=== PATIENT | male | born 1975 | race Caucasian/White ===

== ENCOUNTER 2017-01-24 15:44 | Inpatient (IN) | payer MEDICAID ==
[~2017-01-24] VITALS: Ht 177.8 cm; Wt 157.1 kg
[~2017-01-24 15:44] MED LIST: SODIUM CHLORIDE 0.9% 10ML VIAL ONE
[2017-01-24] MEDS ORDERED: SODIUM CHLORIDE 0.9% 1,000 ML IV ONE (17:03)
[2017-01-24 17:09] LABS: BASOPHILS % 0.4 % (0.0-2.0); EOSINOPHILS % 5.4 % (0.0-5.0); HEMOGLOBIN. 13.7 g/dL (14.0-18.0); MEAN CORPUSCULAR HEMOGLOBIN 27.4 pg (28.0-32.0); MEAN CORPUSCULAR VOLUME 84.4 fL (80.0-94.0); MEAN PLATELET VOLUME 9.4 fl (7.4-10.4); MONOCYTES % 8.2 % (2.0-8.0); PLATELET 175 x1000/uL (130-400); RED BLOOD CELL COUNT 4.98 mill/uL (4.7-6.1); RED CELL DISTRIBUTION WIDTH 14.8 % (11.6-14.6)
[2017-01-24 17:15] LABS: CHLORIDE 105 mEq/L (98-107)
[2017-01-24] MEDS ORDERED: DILTIAZEM HCL 5MG/ML 5ML VIAL IV NR (17:15)
[2017-01-24 17:19] LABS: D-DIMER 0.47 mg/L FEU (<0.50); INR 1.1; PROTHROMBIN TIME 11.7 sec (9.4-11.6)
[2017-01-24 17:20] LABS: CARBON DIOXIDE 30 mEq/L (21-32)
[2017-01-24 17:25] LABS: TROPONIN I 0.15 ng/mL (0.00-0.04)
[2017-01-24] MEDS ORDERED: NITROGLYCERIN OINT 1GM/INCH UDPKT TD ONE (17:45)
[2017-01-24] MEDS ORDERED: FUROSEMIDE 40MG/4ML VIAL IVP ONE (17:45)
[2017-01-24] MEDS ORDERED: ASPIRIN 325MG TABLET PO ONE (18:30)
[2017-01-24 19:27] LABS: *AMPHETAMINES SCREEN URINE NEGATIVE (NEGATIVE); *BARBITURATES SCREEN URINE NEGATIVE (NEGATIVE); *BENZODIAZEPINES SCREEN URINE NEGATIVE (NEGATIVE); *COCAINE SCREEN URINE NEGATIVE (NEGATIVE); CANNABINOID URINE SCREEN NEGATIVE (NEGATIVE); METHADONE URINE SCREEN NEGATIVE (NEGATIVE); OPIATES URINE SCREEN NEGATIVE (NEGATIVE); PHENCYCLIDINE URINE SCREEN NEGATIVE (NEGATIVE)
[2017-01-24] MEDS ORDERED: DILTIAZEM HCL 125 MG in DEXT 5% WATER 100 ML IV ONE (20:00)
[2017-01-24] MEDS ORDERED: ONDANSETRON HCL 4MG/2ML VIAL IV PRN (23:15)
[2017-01-24] MEDS ORDERED: ACETAMINOPHEN 325MG TABLET PO PRN (23:15)
[2017-01-24] MEDS ORDERED: DOCUSATE SODIUM 100MG CAPSULE PO PRN (23:15)
[2017-01-24] MEDS ORDERED: MAGNESIUM/ALUMINUM HYDROXIDE/SIMETHICONE 30ML UDC PO PRN (23:15)
[2017-01-24] MEDS ORDERED: HYDROCODONE/ACETAMINOPHEN 5/325MG TABLET PO PRN (23:15)
[2017-01-24] MEDS ORDERED: CLONIDINE 0.1MG TABLET PO PRN (23:15)
[2017-01-24] MEDS ORDERED: IPRATROPIUM/ALBUTEROL 0.5-3(2.5)MG/3ML NEB INH PRN (23:15)
[2017-01-24] MEDS ORDERED: ENOXAPARIN 40MG/0.4ML SYR SUBCUT SCH (23:15)
[2017-01-25] VITALS (22 sets, daily range): BP systolic 92–139; BP diastolic 31–90
[2017-01-25] MEDS ORDERED: DILTIAZEM HCL 5MG/ML 5ML VIAL IV SCH (02:45)
[2017-01-25 07:06] LABS: BASOPHILS % 0.4 % (0.0-2.0); EOSINOPHILS % 5.9 % (0.0-5.0); HEMATOCRIT. 40.8 % (42.0-52.0); HEMOGLOBIN. 13.2 g/dL (14.0-18.0); LYMPHOCYTES % 15.3 % (20.0-50.0); MEAN CORPUSCULAR HEMOGLOBIN 27.2 pg (28.0-32.0); MEAN CORPUSCULAR VOLUME 84.5 fL (80.0-94.0); MONOCYTES % 8.3 % (2.0-8.0); NEUTROPHILS % 70.1 % (40.0-76.0); PLATELET 177 x1000/uL (130-400); RED BLOOD CELL COUNT 4.83 mill/uL (4.7-6.1); RED CELL DISTRIBUTION WIDTH 14.8 % (11.6-14.6)
[2017-01-25 07:44] LABS: CARBON DIOXIDE 29 mEq/L (21-32); CHLORIDE 101 mEq/L (98-107); CREATINE KINASE 249 IU/L (39-308); HDL CHOLESTEROL 29 mg/dL (40-59); LDL CHOLESTEROL 77 mg/dL (5-100)
[2017-01-25 07:50] LABS: CREATINE KINASE MB FRACTION 4.4 ng/mL (0.5-3.6); TROPONIN I 0.13 ng/mL (0.00-0.04)
[2017-01-25] MEDS: FUROSEMIDE 40MG/4ML VIAL IV SCH ×2 (08:41→17:24)
[2017-01-25] MEDS: ASPIRIN 81MG EC TABLET PO SCH (08:42)
[2017-01-25] MEDS: ENOXAPARIN 40MG/0.4ML SYR SUBCUT SCH ×2 (08:43→23:07)
[2017-01-25] MEDS: DILTIAZEM HCL 125 MG in DEXT 5% WATER 100 ML IV SCH ×4 (09:53→20:39)
[2017-01-25] MEDS ORDERED: PNEUMOCOCCAL 23-VAL P-SAC VAC 0.5 ML IM ONE (12:00)
[2017-01-25] MEDS: IPRATROPIUM/ALBUTEROL 0.5-3(2.5)MG/3ML NEB HHN SCH ×2 (12:43→16:00)
[2017-01-25 13:46] LABS: T4 FREE 1.25 ng/dL (0.76-1.46)
[2017-01-25 14:33] LABS: CREATINE KINASE MB FRACTION 4.1 ng/mL (0.5-3.6); TROPONIN I 0.12 ng/mL (0.00-0.04)
[2017-01-26] VITALS (11 sets, daily range): BP systolic 48–141; BP diastolic 32–85
[2017-01-26 06:55] LABS: CARBON DIOXIDE 30 mEq/L (21-32); CHLORIDE 100 mEq/L (98-107)
[2017-01-26] MEDS: DILTIAZEM HCL 125 MG in DEXT 5% WATER 100 ML IV SCH (07:10)
[2017-01-26 08:53] LABS: HEMATOCRIT 43.8 % (42.0-52.0); MEAN CORPUSCULAR HEMOGLOBIN 26.9 pg (28.0-32.0); MEAN CORPUSCULAR VOLUME 84.5 fL (80.0-94.0); PLATELET 204 x1000/uL (130-400); RED BLOOD CELL COUNT 5.18 mill/uL (4.7-6.1); RED CELL DISTRIBUTION WIDTH 14.9 % (11.6-14.6)
[2017-01-26 08:56] LABS: CARBON DIOXIDE 32 mEq/L (21-32); CHLORIDE 99 mEq/L (98-107)
[2017-01-26] MEDS: IPRATROPIUM/ALBUTEROL 0.5-3(2.5)MG/3ML NEB HHN SCH (09:00)
[2017-01-26] MEDS: FUROSEMIDE 40MG/4ML VIAL IV SCH (09:29)
[2017-01-26] MEDS: ASPIRIN 81MG EC TABLET PO SCH (09:29)
[2017-01-26] MEDS: ENOXAPARIN 40MG/0.4ML SYR SUBCUT SCH ×2 (09:30→20:57)
[2017-01-26] MEDS: CARVEDILOL 6.25 MG TABLET PO SCH ×2 (11:49→20:55)
[2017-01-26] MEDS ORDERED: PNEUMOCOCCAL 23-VAL P-SAC VAC 0.5 ML IM ONE (12:00)
[2017-01-26] MEDS ORDERED: DEXTROSE 50% WATER 50ML SYRINGE IV PRN (19:30)
[2017-01-26] MEDS: INSULIN LISPRO 100 UNITS/ML SUBCUT SCH (20:57)
[2017-01-26] MEDS: BLOOD SUGAR DIAGNOSTIC STRIP TEST SCH (20:57)
[2017-01-27] VITALS (13 sets, daily range): BP systolic 92–126; BP diastolic 60–89
[2017-01-27] MEDS: BLOOD SUGAR DIAGNOSTIC STRIP TEST SCH ×4 (06:29→21:39)
[2017-01-27] MEDS: INSULIN LISPRO 100 UNITS/ML SUBCUT SCH ×4 (06:29→21:00)
[2017-01-27 06:47] LABS: BASOPHILS % 0.3 % (0.0-2.0); EOSINOPHILS % 5.6 % (0.0-5.0); HEMATOCRIT. 42.7 % (42.0-52.0); HEMOGLOBIN. 13.6 g/dL (14.0-18.0); LYMPHOCYTES % 14.2 % (20.0-50.0); MEAN CORPUSCULAR HEMOGLOBIN 27.3 pg (28.0-32.0); MEAN CORPUSCULAR VOLUME 85.6 fL (80.0-94.0); MEAN PLATELET VOLUME 9.3 fl (7.4-10.4); MONOCYTES % 6.4 % (2.0-8.0); NEUTROPHILS % 73.5 % (40.0-76.0); PLATELET 169 x1000/uL (130-400); RED BLOOD CELL COUNT 4.99 mill/uL (4.7-6.1); RED CELL DISTRIBUTION WIDTH 14.9 % (11.6-14.6)
[2017-01-27 07:55] LABS: CARBON DIOXIDE 30 mEq/L (21-32); CHLORIDE 101 mEq/L (98-107)
[2017-01-27] MEDS ORDERED: LISINOPRIL 5MG TABLET PO SCH (09:00)
[2017-01-27] MEDS: FUROSEMIDE 20MG TABLET PO SCH ×2 (09:01→21:34)
[2017-01-27] MEDS: ASPIRIN 81MG EC TABLET PO SCH (09:01)
[2017-01-27] MEDS: ENOXAPARIN 40MG/0.4ML SYR SUBCUT SCH (09:02)
[2017-01-27] MEDS ORDERED: DIGOXIN 500MCG/2ML AMP IV NR ×3 (09:30→21:30)
[2017-01-27] MEDS ORDERED: ENOXAPARIN 120MG/0.8ML SYR SUBCUT NR (09:30)
[2017-01-27] MEDS: CARVEDILOL 6.25 MG TABLET PO SCH (10:03)
[2017-01-27] MEDS ORDERED: ENOXAPARIN 150MG/ML SYR SUBCUT SCH (21:00)
[2017-01-27] MEDS: CARVEDILOL 12.5MG TABLET PO SCH (21:39)
[2017-01-28] VITALS (15 sets, daily range): BP systolic 90–153; BP diastolic 35–81
[2017-01-28] MEDS: BLOOD SUGAR DIAGNOSTIC STRIP TEST SCH ×4 (06:35→21:00)
[2017-01-28] MEDS: INSULIN LISPRO 100 UNITS/ML SUBCUT SCH ×4 (06:53→21:00)
[2017-01-28 07:23] LABS: BASOPHILS % 0.4 % (0.0-2.0); EOSINOPHILS % 7.1 % (0.0-5.0); HEMATOCRIT. 42.3 % (42.0-52.0); HEMOGLOBIN. 13.8 g/dL (14.0-18.0); LYMPHOCYTES % 14.9 % (20.0-50.0); MEAN CORPUSCULAR HEMOGLOBIN 27.5 pg (28.0-32.0); MEAN CORPUSCULAR VOLUME 84.3 fL (80.0-94.0); MEAN PLATELET VOLUME 9.7 fl (7.4-10.4); MONOCYTES % 7.6 % (2.0-8.0); PLATELET 183 x1000/uL (130-400); RED BLOOD CELL COUNT 5.01 mill/uL (4.7-6.1); RED CELL DISTRIBUTION WIDTH 14.4 % (11.6-14.6)
[2017-01-28 08:30] LABS: CARBON DIOXIDE 29 mEq/L (21-32)
[2017-01-28] MEDS: ASPIRIN 81MG EC TABLET PO SCH (08:41)
[2017-01-28] MEDS: CARVEDILOL 12.5MG TABLET PO SCH (08:41)
[2017-01-28] MEDS: ENOXAPARIN 40MG/0.4ML SYR SUBCUT SCH ×2 (08:41→20:54)
[2017-01-28] MEDS: FUROSEMIDE 20MG TABLET PO SCH ×2 (08:41→20:55)
[2017-01-28 08:49] LABS: CHLORIDE 100 mEq/L (98-107)
[2017-01-28 11:18] LABS: BG BASE EXCESS 2.6 mmol/L (-2.0-2.0); BG CARBOXYHEMOGLOBIN 0.8 % (0.5-1.5); BG DEOXYHEMOGLOBIN 7.4 % (0.0-5.0); BG FRACTION INSPIRED OXYGEN 21; BG HCO3 ACT 28.2 mmol/L (22.0-26.0); BG METHEMOGLOBIN 0.1 % (0.0-1.5); BG OXYGEN SATURATION 92.5 % (92.0-98.5); BG OXYHEMOGLOBIN 91.7 % (94.0-97.0); BG PCO2 47.1 mmHg (35.0-45.0); BG PH 7.395 (7.350-7.450); BG PO2 66.2 mmHg (75.0-100.0); BG SAMPLE SITE RIGHT RADIAL; BG TOTAL HEMOGLOBIN 14.4 g/dL (12.0-18.0); BG VENT MODE ROOM AIR
[2017-01-28] MEDS: CARVEDILOL 25MG TABLET PO SCH (20:55)
[2017-01-29] VITALS (15 sets, daily range): BP systolic 37–139; BP diastolic 17–97
[2017-01-29] MEDS: BLOOD SUGAR DIAGNOSTIC STRIP TEST SCH ×4 (06:50→20:23)
[2017-01-29] MEDS: INSULIN LISPRO 100 UNITS/ML SUBCUT SCH ×4 (07:20→20:22)
[2017-01-29 08:00] LABS: BASOPHILS % 0.6 % (0.0-2.0); EOSINOPHILS % 6.1 % (0.0-5.0); HEMATOCRIT. 43.1 % (42.0-52.0); HEMOGLOBIN. 13.9 g/dL (14.0-18.0); LYMPHOCYTES % 16.9 % (20.0-50.0); MEAN CORPUSCULAR HEMOGLOBIN 27.3 pg (28.0-32.0); MEAN CORPUSCULAR VOLUME 84.5 fL (80.0-94.0); MEAN PLATELET VOLUME 9.9 fl (7.4-10.4); MONOCYTES % 7.2 % (2.0-8.0); NEUTROPHILS % 69.2 % (40.0-76.0); PLATELET 182 x1000/uL (130-400); RED CELL DISTRIBUTION WIDTH 14.5 % (11.6-14.6)
[2017-01-29 08:26] LABS: CARBON DIOXIDE 28 mEq/L (21-32); CHLORIDE 100 mEq/L (98-107)
[2017-01-29] MEDS: FUROSEMIDE 20MG TABLET PO SCH ×2 (08:31→20:29)
[2017-01-29] MEDS: ENOXAPARIN 40MG/0.4ML SYR SUBCUT SCH ×2 (08:31→20:32)
[2017-01-29] MEDS: CARVEDILOL 25MG TABLET PO SCH ×2 (08:32→20:29)
[2017-01-29] MEDS: ASPIRIN 81MG EC TABLET PO SCH (08:32)
[2017-01-30] VITALS (7 sets, daily range): BP systolic 97–129; BP diastolic 47–80
[2017-01-30] MEDS: INSULIN LISPRO 100 UNITS/ML SUBCUT SCH (05:33)
[2017-01-30] MEDS: BLOOD SUGAR DIAGNOSTIC STRIP TEST SCH ×2 (05:33→11:50)
[2017-01-30 07:31] LABS: BASOPHILS % 0.6 % (0.0-2.0); EOSINOPHILS % 5.8 % (0.0-5.0); HEMATOCRIT. 41.8 % (42.0-52.0); HEMOGLOBIN. 13.6 g/dL (14.0-18.0); LYMPHOCYTES % 17.9 % (20.0-50.0); MEAN CORPUSCULAR HEMOGLOBIN 27.5 pg (28.0-32.0); MEAN CORPUSCULAR VOLUME 84.9 fL (80.0-94.0); MONOCYTES % 8.2 % (2.0-8.0); NEUTROPHILS % 67.5 % (40.0-76.0); PLATELET 175 x1000/uL (130-400); RED BLOOD CELL COUNT 4.93 mill/uL (4.7-6.1); RED CELL DISTRIBUTION WIDTH 14.9 % (11.6-14.6)
[2017-01-30 07:45] LABS: CARBON DIOXIDE 29 mEq/L (21-32); CHLORIDE 102 mEq/L (98-107)
[2017-01-30] MEDS: ASPIRIN 81MG EC TABLET PO SCH (08:49)
[2017-01-30] MEDS: ENOXAPARIN 40MG/0.4ML SYR SUBCUT SCH (08:50)
[2017-01-30] MEDS: CARVEDILOL 25MG TABLET PO SCH (08:50)
[2017-01-30] MEDS: FUROSEMIDE 20MG TABLET PO SCH (08:50)
== END 2017-01-30 11:55 | disposition home or self-care (01) | DRG 133 ==
LOC: ER 15:44 → 3WST 19:05 → EDBEDREQ 19:08 → EDBEDREQTM 19:08 → ENRESERV 20:13 → CANRESERV 20:13 → EDBEDREQSVC 20:35 → ENRESERV 22:20
PROVIDERS: ADMIT Internal Medicine; ATTEND Internal Medicine
DX: J96.00 Acute respiratory failure, unspecified whether with hypoxia or hypercapnia (principal); I50.43 Acute on chronic combined systolic (congestive) and diastolic (congestive) heart failure; J45.901 Unspecified asthma with (acute) exacerbation; E66.2 Morbid (severe) obesity with alveolar hypoventilation; I47.1 Supraventricular tachycardia; I42.9 Cardiomyopathy, unspecified; I11.0 Hypertensive heart disease with heart failure; Z68.42 Body mass index [BMI] 45.0-49.9, adult; I48.92 Unspecified atrial flutter; E03.9 Hypothyroidism, unspecified; E66.09 Other obesity due to excess calories; G47.33 Obstructive sleep apnea (adult) (pediatric); Z82.49 Family history of ischemic heart disease and other diseases of the circulatory system; Z82.5 Family history of asthma and other chronic lower respiratory diseases
CPT/HCPCS: 36415; 36600; 71010; 71275; 80048; 80053; 80061; 80305; 82375; 82550; 82553; 82805; 82962; 83036; 83605; 83735; 83880; 84439; 84443; 84481; 84484; 85025; 85027; 85379; 85610; 90732; 93005; 93306; 94640; 94664; 96361; 96372; 96374; 96375; 97162; 99291; A4216; C1893; J1160; J1650; J1815; J1940; J3490; J7030; J7060; J7620

== ENCOUNTER 2017-06-12 01:21 | Inpatient (IN) | payer MEDICAID, OTHER ==
[~2017-06-12] VITALS: Ht 175.3 cm; Wt 152.9 kg
[2017-06-12] MEDS ORDERED: ACETAMINOPHEN 325MG TABLET PO STA (02:16)
[2017-06-12] MEDS ORDERED: SODIUM CHLORIDE 0.9% 1000ML BAG (SEPSIS BOLUS) IV ONE (02:30)
[2017-06-12] MEDS ORDERED: ADENOSINE 3 MG/ML 2ML VIAL IV ONE ×2 (02:30)
[2017-06-12] MEDS ORDERED: ASPIRIN 81MG TABLET PO ONE (02:30)
[2017-06-12] MEDS ORDERED: OSELTAMIVIR 75MG CAPSULE PO ONE (02:30)
[2017-06-12 02:53] LABS: HEMATOCRIT. 45.3 % (42.0-52.0); HEMOGLOBIN. 14.9 g/dL (14.0-18.0); MEAN CORPUSCULAR HEMOGLOBIN 27.8 pg (28.0-32.0); MEAN CORPUSCULAR VOLUME 84.5 fL (80.0-94.0); MEAN PLATELET VOLUME 8.8 fl (7.4-10.4); PLATELET 170 x1000/uL (130-400); RED BLOOD CELL COUNT 5.37 mill/uL (4.7-6.1); RED CELL DISTRIBUTION WIDTH 15.8 % (11.6-14.6)
[2017-06-12 03:01] LABS: D-DIMER 0.31 mg/L FEU (<0.50); INR 1.1; PARTIAL THROMBOPLASTIN TIME 26.9 sec (23.4-31.0); PROTHROMBIN TIME 11.6 sec (9.4-11.6)
[2017-06-12 03:06] LABS: CARBON DIOXIDE 29 mEq/L (21-32); CHLORIDE 102 mEq/L (98-107); TROPONIN I 0.04 ng/mL (0.00-0.04)
[2017-06-12 03:32] LABS: CLARITY URINE CLEAR (CLEAR); COLOR URINE DARK YELLOW (YELLOW); KETONES URINE TRACE (NEGATIVE); LEUKOCYTE ESTERASE URINE TRACE (NEGATIVE); NITRITE URINE NEGATIVE (NEGATIVE); OCCULT BLOOD URINE NEGATIVE (NEGATIVE); PROTEIN URINE 2+ (NEGATIVE); SPECIFIC GRAVITY URINE 1.027 (1.005-1.030)
[2017-06-12 03:59] LABS: *AMPHETAMINES SCREEN URINE NEGATIVE (NEGATIVE); *BARBITURATES SCREEN URINE NEGATIVE (NEGATIVE); *BENZODIAZEPINES SCREEN URINE NEGATIVE (NEGATIVE); CANNABINOID URINE SCREEN NEGATIVE (NEGATIVE); METHADONE URINE SCREEN NEGATIVE (NEGATIVE); OPIATES URINE SCREEN NEGATIVE (NEGATIVE); PHENCYCLIDINE URINE SCREEN NEGATIVE (NEGATIVE)
[2017-06-12 04:27] LABS: *COCAINE SCREEN URINE NEGATIVE (NEGATIVE)
[2017-06-12 05:05] LABS: ATYPICAL LYMPHOCYTES 1
[2017-06-12 05:06] LABS: PLATELET ESTIMATE NORMAL
[2017-06-12] MEDS ORDERED: ASPIRIN 325MG EC TABLET PO ONE (07:45)
[2017-06-12] MEDS ORDERED: DILTIAZEM HCL 5MG/ML 5ML VIAL IV PRN (13:00)
[2017-06-12] MEDS ORDERED: DILTIAZEM HCL 60MG TABLET PO NR (14:30)
[2017-06-13] VITALS: BP 110/70
[2017-06-13] MEDS ORDERED: METF500T4 PO (00:10)
[2017-06-13] MEDS ORDERED: LOSA100T14 PO (00:10)
[2017-06-13] MEDS ORDERED: FURO-152 PO (00:10)
[2017-06-13] MEDS ORDERED: COR25 PO (00:10)
[2017-06-13] MEDS ORDERED: ASPI-1159 PO (00:10)
[2017-06-13 00:15] VITALS: BP 110/70
[2017-06-13] MEDS ORDERED: ENOXAPARIN 60MG/0.6ML SYR SUBCUT SCH (00:36)
[2017-06-13] MEDS: DILTIAZEM HCL 60MG TABLET PO SCH ×3 (00:38→12:48)
[2017-06-13] MEDS ORDERED: ACETAMINOPHEN 325MG TABLET PO PRN (01:30)
[2017-06-13] MEDS ORDERED: IPRATROPIUM/ALBUTEROL 0.5-3(2.5)MG/3ML NEB HHN PRN (01:30)
[2017-06-13] MEDS ORDERED: DEXTROSE 50% WATER 50ML SYRINGE IV PRN (01:30)
[2017-06-13 04:00] VITALS: BP 113/66
[2017-06-13] MEDS ORDERED: ENOXAPARIN 80MG/0.8ML SYR SUBCUT SCH (05:30)
[2017-06-13 06:58] LABS: HEMATOCRIT. 44.1 % (42.0-52.0); HEMOGLOBIN. 14.2 g/dL (14.0-18.0); MEAN CORPUSCULAR HEMOGLOBIN 27.4 pg (28.0-32.0); MEAN CORPUSCULAR VOLUME 84.6 fL (80.0-94.0); MEAN PLATELET VOLUME 8.8 fl (7.4-10.4); PLATELET 154 x1000/uL (130-400); RED BLOOD CELL COUNT 5.21 mill/uL (4.7-6.1); RED CELL DISTRIBUTION WIDTH 15.7 % (11.6-14.6)
[2017-06-13 07:42] LABS: CARBON DIOXIDE 27 mEq/L (21-32); CHLORIDE 103 mEq/L (98-107)
[2017-06-13 08:00] VITALS: BP 114/69
[2017-06-13] MEDS: INSULIN LISPRO 100 UNITS/ML SUBCUT SCH ×2 (08:10→13:10)
[2017-06-13] MEDS: LOSARTAN POTASSIUM 100 MG TABLET PO SCH ×2 (08:33)
[2017-06-13] MEDS: BLOOD SUGAR DIAGNOSTIC STRIP TEST SCH ×2 (08:38→12:40)
[2017-06-13] MEDS ORDERED: METFORMIN HCL 500MG TABLET PO SCH (09:00)
[2017-06-13] MEDS ORDERED: ASPIRIN 81MG EC TABLET PO SCH (09:00)
[2017-06-13] MEDS ORDERED: OSELTAMIVIR 75MG CAPSULE PO SCH (09:00)
[2017-06-13 12:00] VITALS: BP 101/68
[2017-06-13] MEDS ORDERED: CARVEDILOL 25MG TABLET PO NR (12:15)
[2017-06-13] MEDS ORDERED: TAM75 PO (13:52)
[2017-06-13] MEDS ORDERED: BUDESONIDE 0.5MG/2ML NEB HHN SCH (14:00)
[2017-06-13 15:24] VITALS: BP 101/68
[2017-06-13] MEDS ORDERED: ENOXAPARIN 150MG/ML SYR SUBCUT SCH (18:00)
[2017-06-13 20:33] LABS: PLATELET ESTIMATE NORMAL
[2017-06-13] MEDS ORDERED: CARVEDILOL 25MG TABLET PO SCH (21:00)
== END 2017-06-13 16:30 | disposition home or self-care (01) | DRG 133 ==
LOC: ER 01:21 → 7WST 03:49 → ENRESERV 23:32 → 7WST 06-13 00:17
PROVIDERS: ADMIT Internal Medicine; ATTEND Internal Medicine
DX: J96.00 Acute respiratory failure, unspecified whether with hypoxia or hypercapnia (principal); I42.9 Cardiomyopathy, unspecified; I11.0 Hypertensive heart disease with heart failure; I48.92 Unspecified atrial flutter; I50.22 Chronic systolic (congestive) heart failure; Z68.42 Body mass index [BMI] 45.0-49.9, adult; J10.1 Influenza due to other identified influenza virus with other respiratory manifestations; E03.9 Hypothyroidism, unspecified; E66.01 Morbid (severe) obesity due to excess calories; F10.10 Alcohol abuse, uncomplicated; E11.9 Type 2 diabetes mellitus without complications; G47.33 Obstructive sleep apnea (adult) (pediatric); I45.10 Unspecified right bundle-branch block; J45.909 Unspecified asthma, uncomplicated; Z82.49 Family history of ischemic heart disease and other diseases of the circulatory system; Z83.3 Family history of diabetes mellitus
CPT/HCPCS: 36415; 71045; 80048; 80053; 80305; 81001; 82962; 83605; 83735; 83880; 84484; 85025; 85379; 85610; 85730; 86850; 86900; 87040; 87086; 87804; 93005; 96365; 96375; 99291; J0153; J1650; J3490; J7030

== ENCOUNTER 2019-12-07 20:21 | Inpatient (IN) | payer MEDICARE, MEDICAID ==
[~2019-12-07] VITALS: Ht 175.3 cm; Wt 188.2 kg
[~2019-12-07 20:21] MED LIST changes: +ASPI-1497 PO; +COR25 PO; +FURO-152 PO; +LOSA100T32 PO; +METF-414 PO; +SACU1TAB7 PO; -SODIUM CHLORIDE 0.9% 10ML VIAL ONE
[2019-12-07 23:14] LABS: CHLORIDE 99 mEq/L (98-107)
[2019-12-07 23:15] LABS: BASOPHILS % 0.6 % (0.0-2.0); EOSINOPHILS % 1.4 % (0.0-5.0); HEMATOCRIT. 45.1 % (42.0-52.0); HEMOGLOBIN. 14.3 g/dL (14.0-18.0); LYMPHOCYTES % 12.9 % (20.0-50.0); MEAN CORPUSCULAR HEMOGLOBIN 27.3 pg (28.0-32.0); MEAN CORPUSCULAR VOLUME 86.1 fL (80.0-94.0); MEAN PLATELET VOLUME 9.6 fl (7.4-10.4); MONOCYTES % 7.8 % (2.0-8.0); NEUTROPHILS % 77.3 % (40.0-76.0); PLATELET 153 x1000/uL (130-400); RED BLOOD CELL COUNT 5.24 mill/uL (4.7-6.1); RED CELL DISTRIBUTION WIDTH 16.4 % (11.6-14.6)
[2019-12-08] VITALS (9 sets, daily range): BP systolic 104–124; BP diastolic 44–83
[2019-12-08] MEDS ORDERED: FUROSEMIDE 40MG/4ML VIAL IVP NR
[2019-12-08] MEDS ORDERED: DEXTROSE 50% WATER 50ML SYRINGE IV PRN (04:45)
[2019-12-08] MEDS: BLOOD SUGAR DIAGNOSTIC STRIP TEST SCH ×4 (06:42→21:58)
[2019-12-08] MEDS: INSULIN LISPRO 100 UNITS/ML SUBCUT SCH ×4 (07:08→21:00)
[2019-12-08] MEDS ORDERED: FUROSEMIDE 40MG/4ML VIAL IVP SCH (07:15)
[2019-12-08] MEDS: ASPIRIN 81MG EC TABLET PO SCH (08:41)
[2019-12-08] MEDS: METFORMIN HCL 500MG TABLET PO SCH ×2 (08:41→18:16)
[2019-12-08] MEDS: LOSARTAN POTASSIUM 100 MG TABLET PO SCH (08:41)
[2019-12-08] MEDS: ENOXAPARIN 40MG/0.4ML SYR SUBCUT SCH ×2 (08:42→21:59)
[2019-12-08] MEDS ORDERED: CARVEDILOL 12.5 MG PO SCH (09:00)
[2019-12-08] MEDS ORDERED: CARVEDILOL 12.5MG TABLET PO SCH (09:00)
[2019-12-08 09:34] LABS: BASOPHILS % 0.5 % (0.0-2.0); EOSINOPHILS % 0.7 % (0.0-5.0); HEMATOCRIT. 48.5 % (42.0-52.0); HEMOGLOBIN. 15.4 g/dL (14.0-18.0); LYMPHOCYTES % 12.5 % (20.0-50.0); MEAN CORPUSCULAR HEMOGLOBIN 27.6 pg (28.0-32.0); MEAN CORPUSCULAR VOLUME 87.1 fL (80.0-94.0); MONOCYTES % 9.5 % (2.0-8.0); NEUTROPHILS % 76.8 % (40.0-76.0); PLATELET 150 x1000/uL (130-400); RED BLOOD CELL COUNT 5.57 mill/uL (4.7-6.1); RED CELL DISTRIBUTION WIDTH 16.7 % (11.6-14.6)
[2019-12-08 09:39] LABS: CHLORIDE 100 mEq/L (98-107)
[2019-12-08 15:19] LABS: BG BASE EXCESS 5.3 mmol/L (-2.0-2.0); BG CARBOXYHEMOGLOBIN 1.2 % (0.5-1.5); BG FRACTION INSPIRED OXYGEN 21; BG HCO3 ACT 33.9 mmol/L (22.0-26.0); BG METHEMOGLOBIN 0.3 % (0.0-1.5); BG OXYGEN SATURATION 75.6 % (92.0-98.5); BG OXYHEMOGLOBIN 74.5 % (94.0-97.0); BG PCO2 68.3 mmHg (35.0-45.0); BG PH 7.314 (7.350-7.450); BG PO2 41.5 mmHg (75.0-100.0); BG SAMPLE SITE RIGHT RADIAL; BG TOTAL HEMOGLOBIN 14.5 g/dL (12.0-18.0); BG VENT MODE ROOM AIR
[2019-12-08] MEDS ORDERED: METOLAZONE 2.5MG TABLET PO SCH (17:45)
[2019-12-08 18:14] LABS: BG BASE EXCESS 5.4 mmol/L (-2.0-2.0); BG CARBOXYHEMOGLOBIN 1.2 % (0.5-1.5); BG DEOXYHEMOGLOBIN 5.9 % (0.0-5.0); BG FRACTION INSPIRED OXYGEN 40; BG HCO3 ACT 35.6 mmol/L (22.0-26.0); BG METHEMOGLOBIN 0.2 % (0.0-1.5); BG OXYHEMOGLOBIN 92.7 % (94.0-97.0); BG PCO2 81.4 mmHg (35.0-45.0); BG PH 7.259 (7.350-7.450); BG PO2 77.4 mmHg (75.0-100.0); BG SAMPLE SITE RIGHT RADIAL; BG TOTAL HEMOGLOBIN 14.5 g/dL (12.0-18.0); BG VENT MODE MASK - BIPAP; BG VENT RATE 16 set
[2019-12-08] MEDS: FUROSEMIDE 100MG/10ML VIAL IVP SCH (18:14)
[2019-12-08] MEDS: CARVEDILOL 12.5MG TABLET PO SCH ×2 (18:16→22:08)
[2019-12-09] VITALS (11 sets, daily range): BP systolic 86–158; BP diastolic 42–110
[2019-12-09 06:02] LABS: BASOPHILS % 0.2 % (0.0-2.0); EOSINOPHILS % 0.7 % (0.0-5.0); HEMATOCRIT. 42.8 % (42.0-52.0); HEMOGLOBIN. 13.3 g/dL (14.0-18.0); LYMPHOCYTES % 11.8 % (20.0-50.0); MEAN CORPUSCULAR HEMOGLOBIN 27.2 pg (28.0-32.0); MEAN CORPUSCULAR VOLUME 87.6 fL (80.0-94.0); MEAN PLATELET VOLUME 9.1 fl (7.4-10.4); MONOCYTES % 9.5 % (2.0-8.0); NEUTROPHILS % 77.8 % (40.0-76.0); PLATELET 154 x1000/uL (130-400); RED BLOOD CELL COUNT 4.89 mill/uL (4.7-6.1); RED CELL DISTRIBUTION WIDTH 16.5 % (11.6-14.6)
[2019-12-09] MEDS: FUROSEMIDE 100MG/10ML VIAL IVP SCH ×2 (06:24→17:20)
[2019-12-09] MEDS: BLOOD SUGAR DIAGNOSTIC STRIP TEST SCH ×4 (06:30→20:39)
[2019-12-09] MEDS: INSULIN LISPRO 100 UNITS/ML SUBCUT SCH ×4 (07:02→20:39)
[2019-12-09] MEDS: METFORMIN HCL 500MG TABLET PO SCH (08:18)
[2019-12-09] MEDS: LOSARTAN POTASSIUM 100 MG TABLET PO SCH ×3 (08:18→09:00)
[2019-12-09] MEDS: CARVEDILOL 12.5MG TABLET PO SCH ×2 (08:22→20:38)
[2019-12-09] MEDS: ASPIRIN 81MG EC TABLET PO SCH (09:00)
[2019-12-09] MEDS: ENOXAPARIN 40MG/0.4ML SYR SUBCUT SCH ×2 (09:00→20:39)
[2019-12-09 13:57] LABS: BG BASE EXCESS 8.4 mmol/L (-2.0-2.0); BG BILEVEL POS AIRWAY PRESSURE 18/7; BG CARBOXYHEMOGLOBIN 1.2 % (0.5-1.5); BG DEOXYHEMOGLOBIN 5.3 % (0.0-5.0); BG FRACTION INSPIRED OXYGEN 40; BG HCO3 ACT 39.8 mmol/L (22.0-26.0); BG METHEMOGLOBIN 0.2 % (0.0-1.5); BG OXYGEN SATURATION 94.6 % (92.0-98.5); BG OXYHEMOGLOBIN 93.3 % (94.0-97.0); BG PCO2 94.1 mmHg (35.0-45.0); BG PH 7.244 (7.350-7.450); BG PO2 81.1 mmHg (75.0-100.0); BG SAMPLE SITE RIGHT RADIAL; BG TOTAL HEMOGLOBIN 14.5 g/dL (12.0-18.0); BG VENT MODE MASK - BIPAP; BG VENT RATE 22 set
[2019-12-09 17:22] LABS: BG BASE EXCESS 5.3 mmol/L (-2.0-2.0); BG BILEVEL POS AIRWAY PRESSURE 18/7; BG CARBOXYHEMOGLOBIN 1.1 % (0.5-1.5); BG FRACTION INSPIRED OXYGEN 40; BG HCO3 ACT 35.4 mmol/L (22.0-26.0); BG METHEMOGLOBIN 0.2 % (0.0-1.5); BG OXYHEMOGLOBIN 95.7 % (94.0-97.0); BG PCO2 80.3 mmHg (35.0-45.0); BG PH 7.262 (7.350-7.450); BG SAMPLE SITE RIGHT RADIAL; BG TOTAL HEMOGLOBIN 14.4 g/dL (12.0-18.0); BG VENT MODE MASK - BIPAP; BG VENT RATE 28 set
[2019-12-10] VITALS (10 sets, daily range): BP systolic 87–133; BP diastolic 42–77
[2019-12-10 06:05] LABS: BASOPHILS % 0.2 % (0.0-2.0); EOSINOPHILS % 0.8 % (0.0-5.0); HEMOGLOBIN. 13.6 g/dL (14.0-18.0); LYMPHOCYTES % 13.5 % (20.0-50.0); MEAN CORPUSCULAR HEMOGLOBIN 27.5 pg (28.0-32.0); MEAN CORPUSCULAR VOLUME 87.2 fL (80.0-94.0); MEAN PLATELET VOLUME 9.5 fl (7.4-10.4); MONOCYTES % 10.2 % (2.0-8.0); NEUTROPHILS % 75.3 % (40.0-76.0); PLATELET 133 x1000/uL (130-400); RED BLOOD CELL COUNT 4.93 mill/uL (4.7-6.1); RED CELL DISTRIBUTION WIDTH 16.2 % (11.6-14.6)
[2019-12-10] MEDS: FUROSEMIDE 100MG/10ML VIAL IVP SCH ×2 (07:15→16:48)
[2019-12-10] MEDS: BLOOD SUGAR DIAGNOSTIC STRIP TEST SCH ×4 (07:30→21:00)
[2019-12-10] MEDS: INSULIN LISPRO 100 UNITS/ML SUBCUT SCH ×4 (08:00→21:00)
[2019-12-10] MEDS: LOSARTAN POTASSIUM 100 MG TABLET PO SCH (08:32)
[2019-12-10] MEDS: ASPIRIN 81MG EC TABLET PO SCH (08:32)
[2019-12-10] MEDS: CARVEDILOL 12.5MG TABLET PO SCH ×2 (08:32→21:00)
[2019-12-10] MEDS: ENOXAPARIN 40MG/0.4ML SYR SUBCUT SCH ×2 (08:33→21:03)
[2019-12-10] MEDS ORDERED: IPRATROPIUM/ALBUTEROL 0.5-3(2.5)MG/3ML NEB HHN PRN (11:45)
[2019-12-10 13:43] LABS: BG BASE EXCESS 5.6 mmol/L (-2.0-2.0); BG CARBOXYHEMOGLOBIN 0.8 % (0.5-1.5); BG FRACTION INSPIRED OXYGEN 40; BG HCO3 ACT 34.6 mmol/L (22.0-26.0); BG METHEMOGLOBIN 0.3 % (0.0-1.5); BG OXYHEMOGLOBIN 96.9 % (94.0-97.0); BG PCO2 73.4 mmHg (35.0-45.0); BG PH 7.291 (7.350-7.450); BG PO2 125.7 mmHg (75.0-100.0); BG SAMPLE SITE RIGHT RADIAL; BG TOTAL HEMOGLOBIN 13.3 g/dL (12.0-18.0); BG VENT MODE MASK - BIPAP; BG VENT RATE 18 set
[2019-12-10] MEDS: IPRATROPIUM/ALBUTEROL 0.5-3(2.5)MG/3ML NEB HHN SCH ×2 (14:27→19:59)
[2019-12-11] VITALS (11 sets, daily range): BP systolic 94–131; BP diastolic 47–80
[2019-12-11] MEDS: FUROSEMIDE 100MG/10ML VIAL IVP SCH ×2 (06:29→17:15)
[2019-12-11 07:05] LABS: BASOPHILS % 0.3 % (0.0-2.0); EOSINOPHILS % 1.4 % (0.0-5.0); HEMATOCRIT. 39.7 % (42.0-52.0); HEMOGLOBIN. 12.7 g/dL (14.0-18.0); MEAN CORPUSCULAR HEMOGLOBIN 27.6 pg (28.0-32.0); MEAN CORPUSCULAR VOLUME 86.2 fL (80.0-94.0); MEAN PLATELET VOLUME 9.5 fl (7.4-10.4); MONOCYTES % 11.6 % (2.0-8.0); NEUTROPHILS % 75.7 % (40.0-76.0); PLATELET 144 x1000/uL (130-400)
[2019-12-11 07:12] LABS: CHLORIDE 92 mEq/L (98-107)
[2019-12-11] MEDS: BLOOD SUGAR DIAGNOSTIC STRIP TEST SCH ×3 (07:30→17:30)
[2019-12-11] MEDS: INSULIN LISPRO 100 UNITS/ML SUBCUT SCH ×3 (08:00→18:00)
[2019-12-11] MEDS: IPRATROPIUM/ALBUTEROL 0.5-3(2.5)MG/3ML NEB HHN SCH ×3 (09:12→12:45)
[2019-12-11] MEDS: ASPIRIN 81MG EC TABLET PO SCH (09:21)
[2019-12-11] MEDS: LOSARTAN POTASSIUM 100 MG TABLET PO SCH (09:21)
[2019-12-11] MEDS: CARVEDILOL 12.5MG TABLET PO SCH (09:21)
[2019-12-11] MEDS: ENOXAPARIN 40MG/0.4ML SYR SUBCUT SCH (09:22)
[2019-12-11] MEDS ORDERED: FURO-151 MT (13:27)
[2019-12-11] MEDS ORDERED: CARVEDILOL 12.5MG TABLET PO SCH (21:00)
[2019-12-12] MEDS ORDERED: LOSARTAN POTASSIUM 50 MG TABLET PO SCH (09:00)
== END 2019-12-11 18:30 | disposition home or self-care (01) | DRG 291 ==
LOC: ER 20:21 → 5EST 12-08 00:16 → ENRESERV 12-08 03:10
PROVIDERS: ADMIT Internal Medicine; ATTEND Internal Medicine
PROC: 5A09357 Assistance with Respiratory Ventilation, Less than 24 Consecutive Hours, Continuous Positive Airway Pressure (ICD-10-PCS; principal; 2019-12-08)
PROC: 5A09357 Assistance with Respiratory Ventilation, Less than 24 Consecutive Hours, Continuous Positive Airway Pressure (ICD-10-PCS; 2019-12-09)
PROC: 5A09357 Assistance with Respiratory Ventilation, Less than 24 Consecutive Hours, Continuous Positive Airway Pressure (ICD-10-PCS; 2019-12-10)
DX: I13.0 Hypertensive heart and chronic kidney disease with heart failure and stage 1 through stage 4 chronic kidney disease, or unspecified chronic kidney disease (principal); I50.23 Acute on chronic systolic (congestive) heart failure; J18.9 Pneumonia, unspecified organism; J96.21 Acute and chronic respiratory failure with hypoxia; J96.22 Acute and chronic respiratory failure with hypercapnia; E44.0 Moderate protein-calorie malnutrition; I48.92 Unspecified atrial flutter; Z68.44 Body mass index [BMI] 60.0-69.9, adult; E66.2 Morbid (severe) obesity with alveolar hypoventilation; I42.9 Cardiomyopathy, unspecified; F17.210 Nicotine dependence, cigarettes, uncomplicated; E11.22 Type 2 diabetes mellitus with diabetic chronic kidney disease; N18.9 Chronic kidney disease, unspecified; J44.9 Chronic obstructive pulmonary disease, unspecified; Z83.3 Family history of diabetes mellitus; Z95.810 Presence of automatic (implantable) cardiac defibrillator; Z79.899 Other long term (current) drug therapy; Z79.82 Long term (current) use of aspirin; Z79.84 Long term (current) use of oral hypoglycemic drugs; Z71.3 Dietary counseling and surveillance
CPT/HCPCS: 36415; 36600; 71045; 74176; 80048; 80053; 82375; 82805; 82962; 83036; 83880; 84484; 85025; 93005; 93306; 93970; 94640; 94660; 99285; J1650; J1815; J1940

== ENCOUNTER → 2021-02-25 | Day surgery (SDC) | payer MEDICARE, MEDICAID ==
[~2021-02-25] VITALS: Ht 177.8 cm; Wt 173.3 kg
[~2021-02-25] MED LIST changes: +ACETAMINOPHEN 325MG TABLET PO PRN; +ATROV INH; +FENTANYL CITRATE/PF 50MCG/ML 2ML VIAL ONE; +FURO-151 MT; +HEPARIN SODIUM 1,000 UNIT/1ML VIAL IV ONE; +IODIXANOL 320MG/ML 100 ML BOTTLE IV ONE; +IOHEXOL-300 100 ML BOTTLE ONE; +LIDOCAINE HCL 1% 20ML VIAL (Pyxis) INJ ONE; +METO5TAB7 MT; +MIDAZOLAM HCL 2 MG/2 ML VIAL ONE; +NICARDIPINE 100MCG/ML 10ML VIAL (CATH LAB) IV ONE; +NITROGLYCERIN 50MCG/ML 10ML VIAL (CATH LAB) IV ONE; +ONDANSETRON HCL 4MG/2ML INJ IV PRN; +POTA-9 MT
== END | disposition home or self-care (01) ==
LOC: CCL 09:41
PROVIDERS: ATTEND Specialist
DX: I42.0 Dilated cardiomyopathy (principal); I47.2 Ventricular tachycardia; I11.0 Hypertensive heart disease with heart failure; I50.9 Heart failure, unspecified; E11.9 Type 2 diabetes mellitus without complications; E78.5 Hyperlipidemia, unspecified; G47.33 Obstructive sleep apnea (adult) (pediatric); I25.10 Atherosclerotic heart disease of native coronary artery without angina pectoris; I25.2 Old myocardial infarction; I25.5 Ischemic cardiomyopathy; Z79.82 Long term (current) use of aspirin; Z79.84 Long term (current) use of oral hypoglycemic drugs; Z79.899 Other long term (current) drug therapy; Z95.810 Presence of automatic (implantable) cardiac defibrillator; Z98.890 Other specified postprocedural states; Z72.89 Other problems related to lifestyle; Z82.49 Family history of ischemic heart disease and other diseases of the circulatory system; Z83.3 Family history of diabetes mellitus
CPT/HCPCS: 93458; 99152; C1769; C1887; C1893; J1644; J2250; J3010; J3490; Q9967; G0500

== ENCOUNTER 2021-08-26 15:36 | Inpatient (IN) | payer MEDICARE, MEDICAID ==
[~2021-08-26] VITALS: Ht 180.3 cm; Wt 182.3 kg
[~2021-08-26 15:36] MED LIST changes: -ACETAMINOPHEN 325MG TABLET PO PRN; -FENTANYL CITRATE/PF 50MCG/ML 2ML VIAL ONE; -FURO-152 PO; -HEPARIN SODIUM 1,000 UNIT/1ML VIAL IV ONE; -IODIXANOL 320MG/ML 100 ML BOTTLE IV ONE; -IOHEXOL-300 100 ML BOTTLE ONE; -LIDOCAINE HCL 1% 20ML VIAL (Pyxis) INJ ONE; -LOSA100T32 PO; -MIDAZOLAM HCL 2 MG/2 ML VIAL ONE; -NICARDIPINE 100MCG/ML 10ML VIAL (CATH LAB) IV ONE; -NITROGLYCERIN 50MCG/ML 10ML VIAL (CATH LAB) IV ONE; -ONDANSETRON HCL 4MG/2ML INJ IV PRN
[2021-08-26] MEDS ORDERED: ASPIRIN 81MG TABLET PO ONE (16:00)
[2021-08-26] MEDS ORDERED: NITROGLYCERIN OINT 1GM/INCH UDPKT TD ONE (16:00)
[2021-08-26] MEDS ORDERED: FUROSEMIDE 40MG/4ML VIAL IV ONE (16:00)
[2021-08-26 16:36] LABS: CHLORIDE 102 mEq/L (98-107)
[2021-08-26 16:37] LABS: BASOPHILS % 0.7 % (0.0-2.0); EOSINOPHILS % 0.5 % (0.0-5.0); HEMATOCRIT. 44.4 % (42.0-52.0); HEMOGLOBIN. 14.1 g/dL (14.0-18.0); LYMPHOCYTES % 12.6 % (20.0-50.0); MEAN PLATELET VOLUME 9.4 fl (7.4-10.4); MONOCYTES % 7.3 % (2.0-8.0); NEUTROPHILS % 78.9 % (40.0-76.0); PLATELET 185 x1000/uL (130-400); RED BLOOD CELL COUNT 5.04 mill/uL (4.7-6.1); RED CELL DISTRIBUTION WIDTH 16.6 % (11.6-14.6)
[2021-08-27] VITALS (8 sets, daily range): BP systolic 90–156; BP diastolic 44–85
[2021-08-27] MEDS ORDERED: DEXTROSE 50% WATER 50ML SYRINGE IV PRN (01:15)
[2021-08-27] MEDS ORDERED: IPRATROPIUM/ALBUTEROL 0.5-3(2.5)MG/3ML NEB HHN PRN (01:15)
[2021-08-27] MEDS: FUROSEMIDE 40MG/4ML VIAL IVP SCH ×2 (01:44→08:13)
[2021-08-27] MEDS ORDERED: FURO80TA3 MT (01:56)
[2021-08-27 06:33] LABS: HEMATOCRIT. 44.4 % (42.0-52.0); HEMOGLOBIN. 14.1 g/dL (14.0-18.0); MEAN CORPUSCULAR HEMOGLOBIN 28.3 pg (28.0-32.0); MEAN CORPUSCULAR VOLUME 89.1 fL (80.0-94.0); MEAN PLATELET VOLUME 9.5 fl (7.4-10.4); PLATELET 183 x1000/uL (130-400); RED BLOOD CELL COUNT 4.98 mill/uL (4.7-6.1); RED CELL DISTRIBUTION WIDTH 17.3 % (11.6-14.6)
[2021-08-27] MEDS: BLOOD SUGAR DIAGNOSTIC STRIP TEST SCH ×4 (06:38→20:51)
[2021-08-27] MEDS: INSULIN LISPRO 100 UNITS/ML SUBCUT SCH ×4 (07:17→20:51)
[2021-08-27] MEDS: ASPIRIN 81MG TABLET PO SCH (08:12)
[2021-08-27] MEDS: POTASSIUM CHLORIDE 10MEQ TABLET SR PO SCH (08:12)
[2021-08-27] MEDS ORDERED: CARVEDILOL 12.5MG TABLET PO SCH (09:00)
[2021-08-27] MEDS ORDERED: METOLAZONE 2.5MG TABLET PO SCH (09:00)
[2021-08-27 12:42] LABS: PLATELET ESTIMATE NORMAL
[2021-08-27] MEDS ORDERED: FUROSEMIDE 40MG/4ML VIAL IVP SCH (16:00)
[2021-08-27] MEDS ORDERED: BENZONATATE 200MG CAPSULE PO PRN (18:00)
[2021-08-27] MEDS: FUROSEMIDE 100MG/10ML VIAL IVP SCH (20:50)
[2021-08-27] MEDS: CARVEDILOL 6.25 MG TABLET PO SCH (20:51)
[2021-08-28 04:00] VITALS: BP 90/46
[2021-08-28 06:01] LABS: BASOPHILS % 0.3 % (0.0-2.0); EOSINOPHILS % 1.3 % (0.0-5.0); HEMATOCRIT. 45.6 % (42.0-52.0); HEMOGLOBIN. 14.7 g/dL (14.0-18.0); LYMPHOCYTES % 12.1 % (20.0-50.0); MEAN CORPUSCULAR HEMOGLOBIN 28.2 pg (28.0-32.0); MEAN CORPUSCULAR VOLUME 87.5 fL (80.0-94.0); MEAN PLATELET VOLUME 9.8 fl (7.4-10.4); MONOCYTES % 9.2 % (2.0-8.0); NEUTROPHILS % 77.1 % (40.0-76.0); PLATELET 168 x1000/uL (130-400); RED BLOOD CELL COUNT 5.22 mill/uL (4.7-6.1); RED CELL DISTRIBUTION WIDTH 16.8 % (11.6-14.6)
[2021-08-28] MEDS: METOLAZONE 2.5MG TABLET PO SCH (06:02)
[2021-08-28 06:47] LABS: CHLORIDE 94 mEq/L (98-107)
[2021-08-28] MEDS: BLOOD SUGAR DIAGNOSTIC STRIP TEST SCH ×4 (07:20→20:18)
[2021-08-28] MEDS: INSULIN LISPRO 100 UNITS/ML SUBCUT SCH ×4 (07:50→20:18)
[2021-08-28 08:00] VITALS: BP 98/59
[2021-08-28] MEDS: CARVEDILOL 6.25 MG TABLET PO SCH ×2 (09:00→20:17)
[2021-08-28] MEDS: POTASSIUM CHLORIDE 10MEQ TABLET SR PO SCH (09:49)
[2021-08-28] MEDS: ASPIRIN 81MG TABLET PO SCH (09:49)
[2021-08-28] MEDS: MAGNESIUM OXIDE 400MG TABLET PO SCH (09:49)
[2021-08-28] MEDS: FUROSEMIDE 100MG/10ML VIAL IVP SCH ×2 (09:49→20:17)
[2021-08-28] MEDS ORDERED: MAGNESIUM 2 G PREMIX 50 ML IV NR (10:00)
[2021-08-28 12:00] VITALS: BP 98/65
[2021-08-28 16:00] VITALS: BP 113/76
[2021-08-28 16:55] LABS: BG BASE EXCESS 13.9 mmol/L (-2.0-2.0); BG CARBOXYHEMOGLOBIN 1.1 % (0.5-1.5); BG DEOXYHEMOGLOBIN 10.9 % (0.0-5.0); BG FRACTION INSPIRED OXYGEN 21; BG HCO3 ACT 41.7 mmol/L (22.0-26.0); BG METHEMOGLOBIN 0.3 % (0.0-1.5); BG OXYGEN SATURATION 88.9 % (92.0-98.5); BG OXYHEMOGLOBIN 87.7 % (94.0-97.0); BG PCO2 64.2 mmHg (35.0-45.0); BG PO2 57.6 mmHg (75.0-100.0); BG SAMPLE SITE RIGHT RADIAL; BG TOTAL HEMOGLOBIN 15.6 g/dL (12.0-18.0); BG VENT MODE ROOM AIR
[2021-08-28 20:00] VITALS: BP 108/58
[2021-08-29] VITALS (7 sets, daily range): BP systolic 93–149; BP diastolic 40–90
[2021-08-29] MEDS: METOLAZONE 2.5MG TABLET PO SCH (06:07)
[2021-08-29] MEDS: BLOOD SUGAR DIAGNOSTIC STRIP TEST SCH ×4 (06:27→20:27)
[2021-08-29] MEDS: INSULIN LISPRO 100 UNITS/ML SUBCUT SCH ×4 (07:50→20:27)
[2021-08-29] MEDS: CARVEDILOL 6.25 MG TABLET PO SCH ×2 (09:00→20:27)
[2021-08-29] MEDS: ASPIRIN 81MG TABLET PO SCH (09:24)
[2021-08-29] MEDS: MAGNESIUM OXIDE 400MG TABLET PO SCH (09:24)
[2021-08-29] MEDS: POTASSIUM CHLORIDE 10MEQ TABLET SR PO SCH (09:24)
[2021-08-29] MEDS: FUROSEMIDE 100MG/10ML VIAL IVP SCH ×2 (09:25→20:26)
[2021-08-30 04:00] VITALS: BP 122/69
[2021-08-30] MEDS: METOLAZONE 2.5MG TABLET PO SCH (06:22)
[2021-08-30] MEDS: BLOOD SUGAR DIAGNOSTIC STRIP TEST SCH ×2 (06:24→12:14)
[2021-08-30] MEDS: INSULIN LISPRO 100 UNITS/ML SUBCUT SCH ×2 (07:25→12:14)
[2021-08-30 08:00] VITALS: BP 106/50
[2021-08-30] MEDS: CARVEDILOL 6.25 MG TABLET PO SCH (09:00)
[2021-08-30] MEDS: MAGNESIUM OXIDE 400MG TABLET PO SCH (09:08)
[2021-08-30] MEDS: POTASSIUM CHLORIDE 10MEQ TABLET SR PO SCH (09:08)
[2021-08-30] MEDS: ASPIRIN 81MG TABLET PO SCH (09:08)
[2021-08-30] MEDS: FUROSEMIDE 100MG/10ML VIAL IVP SCH (09:09)
[2021-08-30 12:02] VITALS: BP 103/62
[2021-08-30 16:00] VITALS: BP 107/68
[2021-08-30 16:55] VITALS: BP 107/68
== END 2021-08-30 17:49 | disposition home or self-care (01) | DRG 291 ==
LOC: ER 15:36 → 6WST 18:48 → ENRESERV 23:19 → UNDODISIN 08-28 17:24
PROVIDERS: ADMIT Internal Medicine; ATTEND Internal Medicine
PROC: 4B02XTZ Measurement of Cardiac Defibrillator, External Approach (ICD-10-PCS; principal; 2021-08-27)
DX: I11.0 Hypertensive heart disease with heart failure (principal); I50.23 Acute on chronic systolic (congestive) heart failure; J96.22 Acute and chronic respiratory failure with hypercapnia; J96.21 Acute and chronic respiratory failure with hypoxia; Z68.43 Body mass index [BMI] 50.0-59.9, adult; G47.33 Obstructive sleep apnea (adult) (pediatric); N28.9 Disorder of kidney and ureter, unspecified; E11.9 Type 2 diabetes mellitus without complications; E66.01 Morbid (severe) obesity due to excess calories; I42.0 Dilated cardiomyopathy; J44.9 Chronic obstructive pulmonary disease, unspecified; I45.10 Unspecified right bundle-branch block; I95.89 Other hypotension; Z79.82 Long term (current) use of aspirin; Z79.84 Long term (current) use of oral hypoglycemic drugs; Z79.899 Other long term (current) drug therapy; Z95.810 Presence of automatic (implantable) cardiac defibrillator; Z71.3 Dietary counseling and surveillance
CPT/HCPCS: 36415; 36600; 71045; 80048; 80053; 82375; 82805; 82962; 83036; 83735; 83880; 84484; 85025; 93005; 93306; 94640; 99285; J1940; J3475

== ENCOUNTER 2021-10-13 02:24 | Inpatient (IN) | payer OTHER, MEDICAID ==
[~2021-10-13] VITALS: Ht 180.3 cm; Wt 161.5 kg
[~2021-10-13 02:24] MED LIST changes: -FURO-151 MT; +FURO80TA3 MT
[2021-10-13] MEDS ORDERED: KETOROLAC 30MG/ML VIAL IV STA (03:46)
[2021-10-13 04:17] LABS: BASOPHILS % 0.4 % (0.0-2.0); EOSINOPHILS % 0.8 % (0.0-5.0); HEMATOCRIT. 43.7 % (42.0-52.0); HEMOGLOBIN. 14.1 g/dL (14.0-18.0); MEAN CORPUSCULAR HEMOGLOBIN 28.5 pg (28.0-32.0); MEAN CORPUSCULAR VOLUME 88.6 fL (80.0-94.0); MEAN PLATELET VOLUME 8.9 fl (7.4-10.4); MONOCYTES % 7.8 % (2.0-8.0); PLATELET 183 x1000/uL (130-400); RED BLOOD CELL COUNT 4.94 mill/uL (4.7-6.1); RED CELL DISTRIBUTION WIDTH 18.5 % (11.6-14.6)
[2021-10-13 04:29] LABS: CHLORIDE 99 mEq/L (98-107)
[2021-10-13] MEDS ORDERED: IBUP-2029 MT (05:37)
[2021-10-13] MEDS ORDERED: GABA-532 MT (05:37)
[2021-10-13] MEDS ORDERED: MORPHINE SULFATE 4 MG/ML CPJ (NOT FOR IM USE) IV ONE (05:45)
[2021-10-13] MEDS ORDERED: SODIUM CHLORIDE 0.9% 500 ML IV ONE (07:00)
[2021-10-13 14:15] VITALS: BP 103/66
[2021-10-13] MEDS ORDERED: CLONIDINE 0.1MG TABLET PO PRN (14:45)
[2021-10-13] MEDS ORDERED: IPRATROPIUM/ALBUTEROL 0.5-3(2.5)MG/3ML NEB HHN PRN (14:45)
[2021-10-13] MEDS ORDERED: ONDANSETRON HCL 4MG/2ML INJ IV PRN (14:45)
[2021-10-13] MEDS ORDERED: ACETAMINOPHEN 325MG TABLET PO PRN (14:45)
[2021-10-13] MEDS ORDERED: MORPHINE SULFATE 2 MG/ML CPJ (NOT FOR IM USE) IV PRN (14:45)
[2021-10-13] MEDS ORDERED: DIPHENHYDRAMINE 50MG/ML VIAL IV PRN (14:45)
[2021-10-13] MEDS ORDERED: MOME13HF INH (14:57)
[2021-10-13] MEDS ORDERED: NALOXONE HCL 0.4MG/ML VIAL IV PRN (15:00)
[2021-10-13] MEDS ORDERED: POTASSIUM CHLORIDE 20MEQ TABLET SR PO NR (15:00)
[2021-10-13] MEDS ORDERED: NON FORMULARY PATIENT HOME MED XX SCH (15:00)
[2021-10-13] MEDS: HYDROCODONE/ACETAMINOPHEN 5/325MG TABLET PO PRN (15:59)
[2021-10-13 16:00] VITALS: BP 105/67
[2021-10-13] MEDS: SACUBITRIL/VALSARTAN 49MG/51MG TABLET PO SCH (16:33)
[2021-10-13 20:00] VITALS: BP 93/68
[2021-10-13] MEDS: CARVEDILOL 6.25 MG TABLET PO SCH (21:00)
[2021-10-13] MEDS: FUROSEMIDE 100MG/10ML VIAL IVP SCH (22:25)
[2021-10-14] VITALS: BP 113/59
[2021-10-14 04:00] VITALS: BP 100/61
[2021-10-14 06:12] LABS: BASOPHILS % 0.2 % (0.0-2.0); EOSINOPHILS % 1.7 % (0.0-5.0); HEMATOCRIT. 42.1 % (42.0-52.0); HEMOGLOBIN. 13.6 g/dL (14.0-18.0); LYMPHOCYTES % 13.5 % (20.0-50.0); MEAN CORPUSCULAR HEMOGLOBIN 28.7 pg (28.0-32.0); MEAN CORPUSCULAR VOLUME 88.5 fL (80.0-94.0); MEAN PLATELET VOLUME 9.4 fl (7.4-10.4); MONOCYTES % 9.7 % (2.0-8.0); NEUTROPHILS % 74.9 % (40.0-76.0); PLATELET 173 x1000/uL (130-400); RED BLOOD CELL COUNT 4.76 mill/uL (4.7-6.1); RED CELL DISTRIBUTION WIDTH 17.9 % (11.6-14.6)
[2021-10-14] MEDS: HYDROCODONE/ACETAMINOPHEN 5/325MG TABLET PO PRN ×2 (06:25→22:01)
[2021-10-14 08:00] VITALS: BP 103/71
[2021-10-14] MEDS: SACUBITRIL/VALSARTAN 49MG/51MG TABLET PO SCH ×2 (09:00→16:57)
[2021-10-14] MEDS: CARVEDILOL 6.25 MG TABLET PO SCH ×2 (09:00→21:00)
[2021-10-14] MEDS ORDERED: POTASSIUM CHLORIDE 20MEQ TABLET SR PO SCH ×4 (09:00→17:00)
[2021-10-14] MEDS: FUROSEMIDE 100MG/10ML VIAL IVP SCH ×2 (09:25→22:00)
[2021-10-14] MEDS: ASPIRIN 81MG EC TABLET PO SCH (09:25)
[2021-10-14 12:00] VITALS: BP 99/62
[2021-10-14 16:00] VITALS: BP 98/77
[2021-10-14] MEDS: POTASSIUM CHLORIDE 20MEQ TABLET SR PO SCH (17:02)
[2021-10-14 20:00] VITALS: BP 106/55
[2021-10-15] VITALS: BP 135/65
[2021-10-15 04:00] VITALS: BP 96/67
[2021-10-15 07:07] LABS: BASOPHILS % 0.4 % (0.0-2.0); HEMATOCRIT. 41.5 % (42.0-52.0); HEMOGLOBIN. 13.5 g/dL (14.0-18.0); LYMPHOCYTES % 14.1 % (20.0-50.0); MEAN CORPUSCULAR HEMOGLOBIN 28.7 pg (28.0-32.0); MEAN CORPUSCULAR VOLUME 87.9 fL (80.0-94.0); MEAN PLATELET VOLUME 9.5 fl (7.4-10.4); NEUTROPHILS % 76.5 % (40.0-76.0); PLATELET 170 x1000/uL (130-400); RED BLOOD CELL COUNT 4.72 mill/uL (4.7-6.1); RED CELL DISTRIBUTION WIDTH 17.7 % (11.6-14.6)
[2021-10-15 07:22] LABS: CHLORIDE 100 mEq/L (98-107)
[2021-10-15 08:29] VITALS: BP 98/58
[2021-10-15] MEDS: SACUBITRIL/VALSARTAN 49MG/51MG TABLET PO SCH ×2 (09:00→16:48)
[2021-10-15] MEDS: FUROSEMIDE 100MG/10ML VIAL IVP SCH (09:32)
[2021-10-15] MEDS: POTASSIUM CHLORIDE 20MEQ TABLET SR PO SCH ×2 (09:33→16:54)
[2021-10-15] MEDS: ASPIRIN 81MG EC TABLET PO SCH (09:33)
[2021-10-15] MEDS: CARVEDILOL 6.25 MG TABLET PO SCH (09:39)
[2021-10-15] MEDS: HYDROCODONE/ACETAMINOPHEN 5/325MG TABLET PO PRN (10:17)
[2021-10-15 12:20] VITALS: BP 94/44
[2021-10-15 14:50] VITALS: BP 104/66
[2021-10-15 16:12] VITALS: BP 104/66
== END 2021-10-15 18:09 | disposition home or self-care (01) | DRG 291 ==
LOC: ER 02:24 → CANBEDREQ 08:11 → 6WST 11:59 → EDBEDREQ 12:02 → EDBEDREQTM 12:02 → ENRESERV 12:45
PROVIDERS: ADMIT Internal Medicine; ATTEND Internal Medicine
PROC: 4B02XTZ Measurement of Cardiac Defibrillator, External Approach (ICD-10-PCS; principal; 2021-10-14)
DX: I13.0 Hypertensive heart and chronic kidney disease with heart failure and stage 1 through stage 4 chronic kidney disease, or unspecified chronic kidney disease (principal); I50.23 Acute on chronic systolic (congestive) heart failure; N17.9 Acute kidney failure, unspecified; Z68.42 Body mass index [BMI] 45.0-49.9, adult; I42.0 Dilated cardiomyopathy; G47.33 Obstructive sleep apnea (adult) (pediatric); E66.09 Other obesity due to excess calories; E87.6 Hypokalemia; I45.10 Unspecified right bundle-branch block; N18.9 Chronic kidney disease, unspecified; E11.22 Type 2 diabetes mellitus with diabetic chronic kidney disease; E11.40 Type 2 diabetes mellitus with diabetic neuropathy, unspecified; J44.9 Chronic obstructive pulmonary disease, unspecified; R00.0 Tachycardia, unspecified; M54.12 Radiculopathy, cervical region; Z95.810 Presence of automatic (implantable) cardiac defibrillator; Z79.82 Long term (current) use of aspirin; Z79.899 Other long term (current) drug therapy; Z79.84 Long term (current) use of oral hypoglycemic drugs; Z79.51 Long term (current) use of inhaled steroids
CPT/HCPCS: 36415; 71045; 73030; 80048; 80053; 83880; 84484; 85025; 93005; 93306; 93970; 99285; J1885; J1940; J7030

== ENCOUNTER 2021-11-09 11:35 | Inpatient (IN) | payer OTHER, MEDICAID ==
[~2021-11-09] VITALS: Ht 175.3 cm; Wt 175.1 kg
[2021-11-09] VITALS (11 sets, daily range): BP systolic 74–122; BP diastolic 37–64
[~2021-11-09 11:35] MED LIST changes: +GABA-532 MT; +IBUP-2029 MT; +MOME13HF INH; +POTA-202 MT; -POTA-9 MT
[2021-11-09 12:45] LABS: BASOPHILS % 0.5 % (0.0-2.0); EOSINOPHILS % 1.4 % (0.0-5.0); HEMATOCRIT. 41.4 % (42.0-52.0); HEMOGLOBIN. 12.9 g/dL (14.0-18.0); LYMPHOCYTES % 10.3 % (20.0-50.0); MEAN CORPUSCULAR HEMOGLOBIN 27.8 pg (28.0-32.0); MONOCYTES % 7.2 % (2.0-8.0); NEUTROPHILS % 80.6 % (40.0-76.0); PLATELET 167 x1000/uL (130-400); RED BLOOD CELL COUNT 4.65 mill/uL (4.7-6.1); RED CELL DISTRIBUTION WIDTH 18.9 % (11.6-14.6)
[2021-11-09] MEDS ORDERED: SODIUM CHLORIDE 0.9% 1,000 ML IV ONE (12:45)
[2021-11-09 12:50] LABS: CHLORIDE 103 mEq/L (98-107)
[2021-11-09] MEDS ORDERED: AMIODARONE HCL 150 MG in DEXT 5% WATER 100 ML IV ONE (13:00)
[2021-11-09] MEDS ORDERED: AMIODARONE HCL 150 MG in DEXT 5% WATER 100 ML IV SCH (13:00)
[2021-11-09] MEDS ORDERED: AMIODARONE HCL 900 MG in DEXT 5% WATER 482 ML IV PRN ×5 (13:00→19:30)
[2021-11-09] MEDS ORDERED: AMIODARONE HCL 50MG/ML 3ML VIAL IV NR (13:15)
[2021-11-09] MEDS ORDERED: POTASSIUM CHLORIDE 20MEQ TABLET SR PO NR (14:15)
[2021-11-09] MEDS ORDERED: AMIODARONE HCL 50MG/ML 3ML VIAL IV ONE ×2 (16:00→16:15)
[2021-11-09] MEDS: CARVEDILOL 12.5MG TABLET PO SCH (17:00)
[2021-11-09] MEDS ORDERED: NON FORMULARY PATIENT HOME MED PO SCH (17:15)
[2021-11-09] MEDS: SACUBITRIL/VALSARTAN 49MG/51MG TABLET PO SCH (18:00)
[2021-11-09] MEDS: FUROSEMIDE 40MG TABLET PO SCH (18:35)
[2021-11-09] MEDS: METFORMIN HCL 500MG TABLET PO SCH (18:35)
[2021-11-09] MEDS ORDERED: IPRATROPIUM/ALBUTEROL 0.5-3(2.5)MG/3ML NEB HHN PRN (21:15)
[2021-11-09] MEDS ORDERED: LORAZEPAM 1MG TABLET PO PRN (21:15)
[2021-11-09] MEDS: IPRATROPIUM/ALBUTEROL 0.5-3(2.5)MG/3ML NEB HHN SCH (21:26)
[2021-11-10] VITALS (42 sets, daily range): BP systolic 1–147; BP diastolic 42–77
[2021-11-10] MEDS: IPRATROPIUM/ALBUTEROL 0.5-3(2.5)MG/3ML NEB HHN SCH ×6 (00:24→21:00)
[2021-11-10] MEDS: FUROSEMIDE 40MG TABLET PO SCH (05:50)
[2021-11-10 06:41] LABS: HEMATOCRIT. 45.7 % (42.0-52.0); HEMOGLOBIN. 14.3 g/dL (14.0-18.0); MEAN CORPUSCULAR HEMOGLOBIN 28.3 pg (28.0-32.0); MEAN CORPUSCULAR VOLUME 90.8 fL (80.0-94.0); MEAN PLATELET VOLUME 9.9 fl (7.4-10.4); PLATELET 132 x1000/uL (130-400); RED BLOOD CELL COUNT 5.03 mill/uL (4.7-6.1)
[2021-11-10] MEDS: ASPIRIN 81MG EC TABLET PO SCH (08:46)
[2021-11-10] MEDS: METFORMIN HCL 500MG TABLET PO SCH (08:46)
[2021-11-10] MEDS: CARVEDILOL 12.5MG TABLET PO SCH (08:48)
[2021-11-10] MEDS: SACUBITRIL/VALSARTAN 49MG/51MG TABLET PO SCH (08:48)
[2021-11-10] MEDS ORDERED: POTASSIUM CHLORIDE 20MEQ TABLET SR PO SCH (09:00)
[2021-11-10] MEDS ORDERED: AMIODARONE HCL 200 MG TABLET PO SCH (11:00)
[2021-11-10 12:21] LABS: PLATELET ESTIMATE NORMAL
[2021-11-10] MEDS: AMIODARONE HCL 200 MG TABLET PO SCH ×2 (13:13→23:28)
[2021-11-10] MEDS: MAGNESIUM OXIDE 400MG TABLET PO SCH (13:13)
[2021-11-10] MEDS: INSULIN LISPRO 100 UNITS/ML SUBCUT SCH ×3 (13:20→21:00)
[2021-11-10] MEDS: BLOOD SUGAR DIAGNOSTIC STRIP TEST SCH ×3 (13:22→21:53)
[2021-11-10] MEDS: AMIODARONE HCL 900 MG in DEXT 5% WATER 482 ML IV SCH (13:28)
[2021-11-10] MEDS ORDERED: MAGNESIUM 2 G PREMIX 50 ML IV SCH (14:00)
[2021-11-10] MEDS: DEXTROSE 50% WATER 50ML SYRINGE IV PRN (18:46)
[2021-11-10] MEDS ORDERED: SACUBITRIL/VALSARTAN 24MG/26MG TABLET PO SCH (21:00)
[2021-11-10] MEDS: CARVEDILOL 6.25 MG TABLET PO SCH (21:00)
[2021-11-11] VITALS (85 sets, daily range): BP systolic 58–157; BP diastolic 22–140
[2021-11-11] MEDS: IPRATROPIUM/ALBUTEROL 0.5-3(2.5)MG/3ML NEB HHN SCH ×6 (01:01→23:50)
[2021-11-11] MEDS: PHENYLEPHRINE 50 MG in DEXT 5% WATER 245 ML IV PRN ×3 (04:01→23:56)
[2021-11-11] MEDS: DEXTROSE 50% WATER 50ML SYRINGE IV PRN (05:52)
[2021-11-11 05:56] LABS: BASOPHILS % 0.4 % (0.0-2.0); EOSINOPHILS % 0.5 % (0.0-5.0); HEMATOCRIT. 44.3 % (42.0-52.0); HEMOGLOBIN. 13.8 g/dL (14.0-18.0); LYMPHOCYTES % 15.4 % (20.0-50.0); MEAN CORPUSCULAR HEMOGLOBIN 28.3 pg (28.0-32.0); MEAN CORPUSCULAR VOLUME 90.7 fL (80.0-94.0); MEAN PLATELET VOLUME 9.9 fl (7.4-10.4); MONOCYTES % 9.9 % (2.0-8.0); NEUTROPHILS % 73.8 % (40.0-76.0); PLATELET 145 x1000/uL (130-400); RED BLOOD CELL COUNT 4.89 mill/uL (4.7-6.1); RED CELL DISTRIBUTION WIDTH 18.4 % (11.6-14.6)
[2021-11-11 06:11] LABS: PHOSPHORUS 5.4 mg/dL (2.5-4.9)
[2021-11-11] MEDS: BLOOD SUGAR DIAGNOSTIC STRIP TEST SCH ×4 (07:53→21:00)
[2021-11-11] MEDS: AMIODARONE HCL 200 MG TABLET PO SCH ×3 (07:56→22:00)
[2021-11-11] MEDS: INSULIN LISPRO 100 UNITS/ML SUBCUT SCH ×4 (08:20→21:00)
[2021-11-11] MEDS: CARVEDILOL 6.25 MG TABLET PO SCH ×3 (09:00→22:10)
[2021-11-11] MEDS: MAGNESIUM OXIDE 400MG TABLET PO SCH (09:38)
[2021-11-11] MEDS: ASPIRIN 81MG EC TABLET PO SCH (09:38)
[2021-11-11] MEDS ORDERED: SODIUM CHLORIDE 0.45% 1,000 ML IV SCH (11:00)
[2021-11-11] MEDS ORDERED: LIDOCAINE HCL/PF 1% 10 MG/ML 5ML VIAL ONE (11:03)
[2021-11-11] MEDS: AMIODARONE HCL 900 MG in DEXT 5% WATER 482 ML IV SCH (13:30)
[2021-11-11] MEDS: SODIUM CHLORIDE 0.9% 1,000 ML IV SCH (15:38)
[2021-11-11 17:44] LABS: CLARITY URINE CLOUDY (CLEAR); COLOR URINE DARK YELLOW (YELLOW); KETONES URINE TRACE (NEGATIVE); LEUKOCYTE ESTERASE URINE TRACE (NEGATIVE); NITRITE URINE NEGATIVE (NEGATIVE); OCCULT BLOOD URINE NEGATIVE (NEGATIVE); PROTEIN URINE 1+ (NEGATIVE); SPECIFIC GRAVITY URINE 1.015 (1.005-1.030)
[2021-11-12] VITALS (96 sets, daily range): BP systolic 53–145; BP diastolic 26–95
[2021-11-12] MEDS: SODIUM CHLORIDE 0.9% 1,000 ML IV SCH ×2 (02:50→16:43)
[2021-11-12] MEDS: PHENYLEPHRINE 50 MG in DEXT 5% WATER 245 ML IV PRN ×4 (04:53→16:30)
[2021-11-12] MEDS: IPRATROPIUM/ALBUTEROL 0.5-3(2.5)MG/3ML NEB HHN SCH ×4 (04:59→20:08)
[2021-11-12 06:22] LABS: BASOPHILS % 0.3 % (0.0-2.0); EOSINOPHILS % 0.3 % (0.0-5.0); HEMATOCRIT. 46.1 % (42.0-52.0); HEMOGLOBIN. 14.5 g/dL (14.0-18.0); LYMPHOCYTES % 10.5 % (20.0-50.0); MEAN CORPUSCULAR HEMOGLOBIN 28.2 pg (28.0-32.0); MEAN CORPUSCULAR VOLUME 89.6 fL (80.0-94.0); MEAN PLATELET VOLUME 10.3 fl (7.4-10.4); MONOCYTES % 7.6 % (2.0-8.0); NEUTROPHILS % 81.3 % (40.0-76.0); PLATELET 150 x1000/uL (130-400); RED BLOOD CELL COUNT 5.15 mill/uL (4.7-6.1); RED CELL DISTRIBUTION WIDTH 18.6 % (11.6-14.6)
[2021-11-12] MEDS: AMIODARONE HCL 200 MG TABLET PO SCH ×3 (06:48→22:02)
[2021-11-12] MEDS: BLOOD SUGAR DIAGNOSTIC STRIP TEST SCH ×4 (07:50→21:00)
[2021-11-12] MEDS: INSULIN LISPRO 100 UNITS/ML SUBCUT SCH ×4 (08:20→21:00)
[2021-11-12] MEDS: CARVEDILOL 6.25 MG TABLET PO SCH (09:00)
[2021-11-12] MEDS: MAGNESIUM OXIDE 400MG TABLET PO SCH (09:55)
[2021-11-12] MEDS: ASPIRIN 81MG EC TABLET PO SCH (09:55)
[2021-11-12] MEDS ORDERED: SODIUM POLYSTYRENE SULFONATE 15 G/60 ML BOT PO NR (10:30)
[2021-11-12] MEDS ORDERED: MIDODRINE HCL 5MG TABLET PO NR (11:15)
[2021-11-12] MEDS ORDERED: MIDODRINE HCL 5MG TABLET PO SCH (17:00)
[2021-11-12] MEDS: PHENYLEPHRINE 100 MG in DEXT 5% WATER 240 ML IV PRN (20:14)
[2021-11-12] MEDS: CARVEDILOL 3.125 MG TABLET PO SCH (22:02)
[2021-11-13] VITALS (81 sets, daily range): BP systolic 43–145; BP diastolic 17–100
[2021-11-13] MEDS: IPRATROPIUM/ALBUTEROL 0.5-3(2.5)MG/3ML NEB HHN SCH ×5 (00:13→23:50)
[2021-11-13] MEDS: PHENYLEPHRINE 100 MG in DEXT 5% WATER 240 ML IV PRN ×3 (03:46→18:28)
[2021-11-13] MEDS: SODIUM CHLORIDE 0.9% 1,000 ML IV SCH ×3 (05:50→19:44)
[2021-11-13] MEDS: AMIODARONE HCL 200 MG TABLET PO SCH (05:51)
[2021-11-13 06:27] LABS: BASOPHILS % 0.3 % (0.0-2.0); EOSINOPHILS % 1.5 % (0.0-5.0); HEMATOCRIT. 49.3 % (42.0-52.0); HEMOGLOBIN. 15.3 g/dL (14.0-18.0); LYMPHOCYTES % 9.5 % (20.0-50.0); MEAN CORPUSCULAR HEMOGLOBIN 28.2 pg (28.0-32.0); MEAN CORPUSCULAR VOLUME 90.4 fL (80.0-94.0); MEAN PLATELET VOLUME 10.1 fl (7.4-10.4); MONOCYTES % 6.5 % (2.0-8.0); NEUTROPHILS % 82.2 % (40.0-76.0); PLATELET 133 x1000/uL (130-400); RED BLOOD CELL COUNT 5.45 mill/uL (4.7-6.1); RED CELL DISTRIBUTION WIDTH 18.9 % (11.6-14.6)
[2021-11-13 07:07] LABS: PHOSPHORUS 5.6 mg/dL (2.5-4.9)
[2021-11-13] MEDS: INSULIN LISPRO 100 UNITS/ML SUBCUT SCH ×4 (07:48→20:00)
[2021-11-13] MEDS: BLOOD SUGAR DIAGNOSTIC STRIP TEST SCH ×4 (07:48→20:00)
[2021-11-13 08:17] LABS: BG BASE EXCESS -4.7 mmol/L (-2.0-2.0); BG CARBOXYHEMOGLOBIN 1.7 % (0.5-1.5); BG DEOXYHEMOGLOBIN 2.8 % (0.0-5.0); BG FRACTION INSPIRED OXYGEN 36; BG HCO3 ACT 23.3 mmol/L (22.0-26.0); BG METHEMOGLOBIN 0.4 % (0.0-1.5); BG OXYGEN SATURATION 97.1 % (92.0-98.5); BG OXYHEMOGLOBIN 95.1 % (94.0-97.0); BG PCO2 54.4 mmHg (35.0-45.0); BG PO2 98.2 mmHg (75.0-100.0); BG SAMPLE SITE RIGHT RADIAL; BG TOTAL HEMOGLOBIN 15.8 g/dL (12.0-18.0); BG VENT MODE NASAL CANNULA
[2021-11-13] MEDS: MAGNESIUM OXIDE 400MG TABLET PO SCH (09:15)
[2021-11-13] MEDS: ASPIRIN 81MG EC TABLET PO SCH (09:16)
[2021-11-13] MEDS: MIDODRINE HCL 5MG TABLET PO SCH ×2 (09:16→17:52)
[2021-11-13] MEDS: CARVEDILOL 3.125 MG TABLET PO SCH (09:17)
[2021-11-13] MEDS: DOPAMINE 800MG PREMIX (DOUBLE) 250 ML IV PRN (17:02)
[2021-11-13] MEDS ORDERED: ONDANSETRON HCL 4MG/2ML INJ IV PRN (19:30)
[2021-11-13 19:44] LABS: SODIUM URINE RANDOM < 5 mEq/L
[2021-11-14] VITALS (80 sets, daily range): BP systolic 71–177; BP diastolic 37–144
[2021-11-14] MEDS: MIDODRINE HCL 5MG TABLET PO SCH ×3 (00:35→18:38)
[2021-11-14] MEDS: IPRATROPIUM/ALBUTEROL 0.5-3(2.5)MG/3ML NEB HHN SCH ×5 (04:09→22:07)
[2021-11-14] MEDS: DOPAMINE 800MG PREMIX (DOUBLE) 250 ML IV PRN ×2 (05:23→20:10)
[2021-11-14] MEDS: SODIUM CHLORIDE 0.9% 1,000 ML IV SCH (05:23)
[2021-11-14] MEDS: PHENYLEPHRINE 100 MG in DEXT 5% WATER 240 ML IV PRN ×2 (05:24→20:10)
[2021-11-14] MEDS: BLOOD SUGAR DIAGNOSTIC STRIP TEST SCH ×4 (07:50→20:28)
[2021-11-14] MEDS: INSULIN LISPRO 100 UNITS/ML SUBCUT SCH ×4 (08:20→20:28)
[2021-11-14] MEDS: BUDESONIDE 0.5MG/2ML NEB HHN SCH ×2 (09:00→22:07)
[2021-11-14] MEDS: ASPIRIN 81MG EC TABLET PO SCH (09:39)
[2021-11-14] MEDS: MAGNESIUM OXIDE 400MG TABLET PO SCH (09:39)
[2021-11-14 15:57] LABS: HEMATOCRIT. 48.8 % (42.0-52.0); HEMOGLOBIN. 15.2 g/dL (14.0-18.0); MEAN CORPUSCULAR HEMOGLOBIN 28.1 pg (28.0-32.0); MEAN CORPUSCULAR VOLUME 90.1 fL (80.0-94.0); PLATELET 107 x1000/uL (130-400); RED BLOOD CELL COUNT 5.41 mill/uL (4.7-6.1); RED CELL DISTRIBUTION WIDTH 19.6 % (11.6-14.6)
[2021-11-14 16:18] LABS: PHOSPHORUS 5.7 mg/dL (2.5-4.9)
[2021-11-14 16:19] LABS: CORTISOL 23.4 ucg/dL
[2021-11-14 16:31] LABS: HEPATITIS B SURFACE ANTIGEN NEGATIVE
[2021-11-14 21:24] LABS: PLATELET ESTIMATE DECREASED
[2021-11-15] VITALS (94 sets, daily range): BP systolic 78–148; BP diastolic 22–86
[2021-11-15] MEDS: MIDODRINE HCL 5MG TABLET PO SCH ×3 (00:27→16:08)
[2021-11-15] MEDS: IPRATROPIUM/ALBUTEROL 0.5-3(2.5)MG/3ML NEB HHN SCH ×6 (02:28→20:32)
[2021-11-15 06:29] LABS: BASOPHILS % 0.6 % (0.0-2.0); EOSINOPHILS % 2.1 % (0.0-5.0); HEMATOCRIT. 45.3 % (42.0-52.0); HEMOGLOBIN. 14.4 g/dL (14.0-18.0); LYMPHOCYTES % 8.2 % (20.0-50.0); MEAN CORPUSCULAR HEMOGLOBIN 28.3 pg (28.0-32.0); MEAN CORPUSCULAR VOLUME 89.3 fL (80.0-94.0); MEAN PLATELET VOLUME 8.9 fl (7.4-10.4); MONOCYTES % 9.6 % (2.0-8.0); NEUTROPHILS % 79.5 % (40.0-76.0); PLATELET 93 x1000/uL (130-400); RED BLOOD CELL COUNT 5.08 mill/uL (4.7-6.1); RED CELL DISTRIBUTION WIDTH 19.4 % (11.6-14.6)
[2021-11-15 06:41] LABS: CHLORIDE 97 mEq/L (98-107)
[2021-11-15 07:00] LABS: PHOSPHORUS 4.2 mg/dL (2.5-4.9)
[2021-11-15] MEDS: BLOOD SUGAR DIAGNOSTIC STRIP TEST SCH ×4 (08:00→21:00)
[2021-11-15] MEDS: INSULIN LISPRO 100 UNITS/ML SUBCUT SCH ×4 (08:00→21:00)
[2021-11-15] MEDS: BUDESONIDE 0.5MG/2ML NEB HHN SCH ×2 (08:32→20:32)
[2021-11-15] MEDS: MAGNESIUM OXIDE 400MG TABLET PO SCH (08:52)
[2021-11-15] MEDS: ASPIRIN 81MG EC TABLET PO SCH (08:52)
[2021-11-15 10:06] LABS: *CREATININE RANDOM URINE 292.6 mg/dL (Not Estab.); MICROALBUMIN RANDOM URINE 100.1 ug/mL (Not Estab.)
[2021-11-15] MEDS: DOPAMINE 800MG PREMIX (DOUBLE) 250 ML IV PRN (11:49)
[2021-11-16] VITALS (65 sets, daily range): BP systolic 64–199; BP diastolic 25–143
[2021-11-16] MEDS: MIDODRINE HCL 5MG TABLET PO SCH ×3 (01:09→16:58)
[2021-11-16] MEDS: IPRATROPIUM/ALBUTEROL 0.5-3(2.5)MG/3ML NEB HHN SCH ×6 (01:15→21:15)
[2021-11-16 05:47] LABS: BASOPHILS % 0.3 % (0.0-2.0); EOSINOPHILS % 2.2 % (0.0-5.0); HEMATOCRIT. 47.6 % (42.0-52.0); HEMOGLOBIN. 14.9 g/dL (14.0-18.0); LYMPHOCYTES % 8.9 % (20.0-50.0); MEAN CORPUSCULAR HEMOGLOBIN 28.2 pg (28.0-32.0); MEAN CORPUSCULAR VOLUME 89.9 fL (80.0-94.0); MEAN PLATELET VOLUME 8.7 fl (7.4-10.4); MONOCYTES % 11.5 % (2.0-8.0); NEUTROPHILS % 77.1 % (40.0-76.0); PLATELET 93 x1000/uL (130-400); RED CELL DISTRIBUTION WIDTH 19.3 % (11.6-14.6)
[2021-11-16 06:03] LABS: CHLORIDE 100 mEq/L (98-107)
[2021-11-16 06:18] LABS: PHOSPHORUS 3.3 mg/dL (2.5-4.9)
[2021-11-16] MEDS: BLOOD SUGAR DIAGNOSTIC STRIP TEST SCH ×3 (08:10→21:00)
[2021-11-16] MEDS: INSULIN LISPRO 100 UNITS/ML SUBCUT SCH ×4 (08:10→21:00)
[2021-11-16] MEDS: MAGNESIUM OXIDE 400MG TABLET PO SCH (08:25)
[2021-11-16] MEDS: BUDESONIDE 0.5MG/2ML NEB HHN SCH ×2 (09:10→21:00)
[2021-11-16] MEDS ORDERED: DOPAMINE 800MG PREMIX (DOUBLE) 250 ML IV PRN ×2 (10:44→19:08)
[2021-11-16] MEDS: ENOXAPARIN 150MG/ML SYR SUBCUT SCH ×2 (11:48→20:56)
[2021-11-16] MEDS ORDERED: PHENYLEPHRINE 100 MG in DEXT 5% WATER 240 ML IV PRN (18:15)
[2021-11-17] VITALS (64 sets, daily range): BP systolic 71–180; BP diastolic 32–126
[2021-11-17] MEDS: MIDODRINE HCL 5MG TABLET PO SCH ×3 (00:31→18:29)
[2021-11-17] MEDS: IPRATROPIUM/ALBUTEROL 0.5-3(2.5)MG/3ML NEB HHN SCH ×4 (02:40→20:31)
[2021-11-17] MEDS: BLOOD SUGAR DIAGNOSTIC STRIP TEST SCH ×4 (07:50→21:00)
[2021-11-17 08:11] LABS: BASOPHILS % 0.6 % (0.0-2.0); EOSINOPHILS % 1.7 % (0.0-5.0); HEMATOCRIT. 45.8 % (42.0-52.0); HEMOGLOBIN. 14.3 g/dL (14.0-18.0); LYMPHOCYTES % 7.8 % (20.0-50.0); MEAN CORPUSCULAR HEMOGLOBIN 28.1 pg (28.0-32.0); MEAN CORPUSCULAR VOLUME 90.1 fL (80.0-94.0); MEAN PLATELET VOLUME 8.4 fl (7.4-10.4); MONOCYTES % 9.1 % (2.0-8.0); NEUTROPHILS % 80.8 % (40.0-76.0); PLATELET 96 x1000/uL (130-400); RED BLOOD CELL COUNT 5.08 mill/uL (4.7-6.1); RED CELL DISTRIBUTION WIDTH 20.1 % (11.6-14.6)
[2021-11-17 08:18] LABS: INR 1.7; PHOSPHORUS 2.8 mg/dL (2.5-4.9); PROTHROMBIN TIME 17.7 sec (9.6-11.0)
[2021-11-17] MEDS: INSULIN LISPRO 100 UNITS/ML SUBCUT SCH ×4 (08:20→21:00)
[2021-11-17] MEDS: ENOXAPARIN 150MG/ML SYR SUBCUT SCH ×2 (10:03→22:04)
[2021-11-17] MEDS: MAGNESIUM OXIDE 400MG TABLET PO SCH (10:04)
[2021-11-17] MEDS ORDERED: DOPAMINE 800MG PREMIX (DOUBLE) 250 ML IV SCH (11:30)
[2021-11-17] MEDS ORDERED: MORPHINE SULFATE 2 MG/ML CPJ (NOT FOR IM USE) IV PRN (15:15)
[2021-11-17] MEDS: LACTULOSE 20G/30ML UDC PO SCH ×2 (15:19→22:04)
[2021-11-17] MEDS ORDERED: MORPHINE SULFATE 2 MG/ML CPJ (NOT FOR IM USE) IV NR (18:13)
[2021-11-17] MEDS: DOPAMINE 800MG PREMIX (DOUBLE) 250 ML IV SCH (19:08)
[2021-11-18] VITALS (75 sets, daily range): BP systolic 70–174; BP diastolic 27–119
[2021-11-18] MEDS: MIDODRINE HCL 5MG TABLET PO SCH ×3 (00:17→17:39)
[2021-11-18] MEDS: IPRATROPIUM/ALBUTEROL 0.5-3(2.5)MG/3ML NEB HHN SCH ×6 (00:36→20:47)
[2021-11-18 05:59] LABS: BASOPHILS % 0.6 % (0.0-2.0); EOSINOPHILS % 1.4 % (0.0-5.0); HEMATOCRIT. 47.6 % (42.0-52.0); HEMOGLOBIN. 14.5 g/dL (14.0-18.0); LYMPHOCYTES % 8.7 % (20.0-50.0); MEAN CORPUSCULAR HEMOGLOBIN 28.3 pg (28.0-32.0); MEAN CORPUSCULAR VOLUME 92.7 fL (80.0-94.0); MEAN PLATELET VOLUME 8.6 fl (7.4-10.4); MONOCYTES % 10.6 % (2.0-8.0); NEUTROPHILS % 78.7 % (40.0-76.0); PLATELET 101 x1000/uL (130-400); RED BLOOD CELL COUNT 5.14 mill/uL (4.7-6.1); RED CELL DISTRIBUTION WIDTH 20.7 % (11.6-14.6)
[2021-11-18 06:28] LABS: CHLORIDE 101 mEq/L (98-107)
[2021-11-18] MEDS: LACTULOSE 20G/30ML UDC PO SCH ×3 (06:37→22:00)
[2021-11-18 06:46] LABS: PHOSPHORUS 2.9 mg/dL (2.5-4.9)
[2021-11-18] MEDS: BLOOD SUGAR DIAGNOSTIC STRIP TEST SCH ×4 (07:50→21:38)
[2021-11-18] MEDS: INSULIN LISPRO 100 UNITS/ML SUBCUT SCH ×4 (08:20→21:00)
[2021-11-18] MEDS: MAGNESIUM OXIDE 400MG TABLET PO SCH (10:54)
[2021-11-18] MEDS: ENOXAPARIN 150MG/ML SYR SUBCUT SCH ×2 (10:54→21:38)
[2021-11-18] MEDS: DOPAMINE 800MG PREMIX (DOUBLE) 250 ML IV SCH (11:00)
[2021-11-18] MEDS ORDERED: NALOXONE HCL 0.4MG/ML VIAL IV PRN (11:00)
[2021-11-18] MEDS: AMIODARONE HCL 200 MG TABLET PO SCH (21:38)
[2021-11-19] VITALS (28 sets, daily range): BP systolic 84–178; BP diastolic 40–120
[2021-11-19] MEDS: MIDODRINE HCL 5MG TABLET PO SCH ×3 (00:18→17:47)
[2021-11-19] MEDS: IPRATROPIUM/ALBUTEROL 0.5-3(2.5)MG/3ML NEB HHN SCH ×6 (00:54→19:56)
[2021-11-19 05:25] LABS: BASOPHILS % 0.7 % (0.0-2.0); EOSINOPHILS % 2.1 % (0.0-5.0); HEMATOCRIT. 42.3 % (42.0-52.0); HEMOGLOBIN. 13.2 g/dL (14.0-18.0); MEAN CORPUSCULAR HEMOGLOBIN 28.2 pg (28.0-32.0); MEAN CORPUSCULAR VOLUME 90.2 fL (80.0-94.0); MEAN PLATELET VOLUME 8.4 fl (7.4-10.4); NEUTROPHILS % 71.2 % (40.0-76.0); PLATELET 95 x1000/uL (130-400); RED BLOOD CELL COUNT 4.68 mill/uL (4.7-6.1); RED CELL DISTRIBUTION WIDTH 20.7 % (11.6-14.6)
[2021-11-19 05:34] LABS: CHLORIDE 101 mEq/L (98-107)
[2021-11-19 05:45] LABS: PHOSPHORUS 2.3 mg/dL (2.5-4.9)
[2021-11-19] MEDS: LACTULOSE 20G/30ML UDC PO SCH ×3 (06:10→21:06)
[2021-11-19] MEDS: BLOOD SUGAR DIAGNOSTIC STRIP TEST SCH ×4 (07:50→20:19)
[2021-11-19] MEDS: INSULIN LISPRO 100 UNITS/ML SUBCUT SCH ×4 (08:20→20:20)
[2021-11-19] MEDS: MAGNESIUM OXIDE 400MG TABLET PO SCH (09:05)
[2021-11-19] MEDS: AMIODARONE HCL 200 MG TABLET PO SCH ×2 (09:05→20:17)
[2021-11-19] MEDS: ENOXAPARIN 150MG/ML SYR SUBCUT SCH ×2 (09:05→20:19)
[2021-11-19 15:51] LABS: CLARITY URINE CLEAR (CLEAR); COLOR URINE DARK YELLOW (YELLOW); KETONES URINE TRACE (NEGATIVE); LEUKOCYTE ESTERASE URINE TRACE (NEGATIVE); NITRITE URINE NEGATIVE (NEGATIVE); OCCULT BLOOD URINE NEGATIVE (NEGATIVE); PROTEIN URINE TRACE (NEGATIVE); SPECIFIC GRAVITY URINE 1.016 (1.005-1.030)
[2021-11-20] VITALS (12 sets, daily range): BP systolic 91–130; BP diastolic 37–75
[2021-11-20] MEDS: MIDODRINE HCL 5MG TABLET PO SCH ×4 (00:18→18:18)
[2021-11-20] MEDS: IPRATROPIUM/ALBUTEROL 0.5-3(2.5)MG/3ML NEB HHN SCH ×4 (00:56→17:15)
[2021-11-20] MEDS: LACTULOSE 20G/30ML UDC PO SCH ×3 (05:07→21:49)
[2021-11-20] MEDS: BLOOD SUGAR DIAGNOSTIC STRIP TEST SCH ×4 (07:33→21:44)
[2021-11-20] MEDS: INSULIN LISPRO 100 UNITS/ML SUBCUT SCH ×4 (07:47→21:00)
[2021-11-20 08:15] LABS: BASOPHILS % 0.4 % (0.0-2.0); EOSINOPHILS % 1.7 % (0.0-5.0); HEMATOCRIT. 40.5 % (42.0-52.0); HEMOGLOBIN. 12.9 g/dL (14.0-18.0); LYMPHOCYTES % 10.1 % (20.0-50.0); MEAN CORPUSCULAR HEMOGLOBIN 28.6 pg (28.0-32.0); MEAN CORPUSCULAR VOLUME 89.7 fL (80.0-94.0); NEUTROPHILS % 75.8 % (40.0-76.0); PLATELET 92 x1000/uL (130-400); RED BLOOD CELL COUNT 4.51 mill/uL (4.7-6.1); RED CELL DISTRIBUTION WIDTH 21.2 % (11.6-14.6)
[2021-11-20 08:17] LABS: CHLORIDE 102 mEq/L (98-107)
[2021-11-20] MEDS: AMIODARONE HCL 200 MG TABLET PO SCH ×2 (09:12→21:45)
[2021-11-20] MEDS: MAGNESIUM OXIDE 400MG TABLET PO SCH (09:12)
[2021-11-20] MEDS: ENOXAPARIN 150MG/ML SYR SUBCUT SCH ×2 (09:13→22:48)
[2021-11-21] VITALS (11 sets, daily range): BP systolic 97–130; BP diastolic 37–82
[2021-11-21] MEDS: MIDODRINE HCL 5MG TABLET PO SCH ×4 (00:55→17:57)
[2021-11-21] MEDS: IPRATROPIUM/ALBUTEROL 0.5-3(2.5)MG/3ML NEB HHN SCH ×3 (01:15→13:15)
[2021-11-21] MEDS: LACTULOSE 20G/30ML UDC PO SCH ×2 (06:21→14:32)
[2021-11-21] MEDS: BLOOD SUGAR DIAGNOSTIC STRIP TEST SCH ×2 (06:25→12:30)
[2021-11-21] MEDS: INSULIN LISPRO 100 UNITS/ML SUBCUT SCH ×2 (07:35→12:43)
[2021-11-21 08:28] LABS: BASOPHILS % 0.4 % (0.0-2.0); EOSINOPHILS % 0.7 % (0.0-5.0); HEMATOCRIT. 39.7 % (42.0-52.0); LYMPHOCYTES % 8.5 % (20.0-50.0); MEAN CORPUSCULAR HEMOGLOBIN 29.1 pg (28.0-32.0); MEAN CORPUSCULAR VOLUME 88.9 fL (80.0-94.0); MEAN PLATELET VOLUME 9.3 fl (7.4-10.4); MONOCYTES % 10.4 % (2.0-8.0); PLATELET 90 x1000/uL (130-400); RED BLOOD CELL COUNT 4.47 mill/uL (4.7-6.1); RED CELL DISTRIBUTION WIDTH 21.7 % (11.6-14.6)
[2021-11-21 08:32] LABS: CHLORIDE 99 mEq/L (98-107)
[2021-11-21] MEDS: AMIODARONE HCL 200 MG TABLET PO SCH (08:33)
[2021-11-21] MEDS: MAGNESIUM OXIDE 400MG TABLET PO SCH (08:33)
[2021-11-21] MEDS: ENOXAPARIN 150MG/ML SYR SUBCUT SCH (09:16)
[2021-11-21 12:17] LABS: BG CARBOXYHEMOGLOBIN 2.1 % (0.5-1.5); BG DEOXYHEMOGLOBIN 6.1 % (0.0-5.0); BG FRACTION INSPIRED OXYGEN 21; BG HCO3 ACT 27.1 mmol/L (22.0-26.0); BG METHEMOGLOBIN 0.2 % (0.0-1.5); BG OXYGEN SATURATION 93.8 % (92.0-98.5); BG OXYHEMOGLOBIN 91.6 % (94.0-97.0); BG PCO2 39.9 mmHg (35.0-45.0); BG SAMPLE SITE RIGHT RADIAL; BG TOTAL HEMOGLOBIN 14.1 g/dL (12.0-18.0); BG VENT MODE ROOM AIR
[2021-11-21] MEDS ORDERED: XAR15 MT (15:37)
[2021-11-21] MEDS ORDERED: AMI2 PO (15:37)
[2021-11-21] MEDS ORDERED: CARVEDILOL 3.125 MG TABLET PO NR (17:50)
[2021-11-21] MEDS ORDERED: CARVEDILOL 3.125 MG TABLET PO SCH (21:00)
== END 2021-11-21 18:30 | disposition home or self-care (01) | DRG 308 ==
LOC: ER 11:35 → 5EST 14:09 → EDBEDREQ 14:13 → EDBEDREQSVC 14:13 → EDBEDREQTM 14:13 → ENRESERV 14:45 → CVICU 11-10 12:37 → 3WST 11-16 16:08 → CVICU 11-16 18:46 → 5EST 11-19 12:46
PROVIDERS: ADMIT Internal Medicine; ATTEND Internal Medicine
PROC: 02HV33Z Insertion of Infusion Device into Superior Vena Cava, Percutaneous Approach (ICD-10-PCS; principal; 2021-11-11)
PROC: B548ZZA Ultrasonography of Superior Vena Cava, Guidance (ICD-10-PCS; 2021-11-11)
DX: I47.2 Ventricular tachycardia (principal); R57.0 Cardiogenic shock; N17.0 Acute kidney failure with tubular necrosis; K72.00 Acute and subacute hepatic failure without coma; J96.22 Acute and chronic respiratory failure with hypercapnia; J96.21 Acute and chronic respiratory failure with hypoxia; I50.23 Acute on chronic systolic (congestive) heart failure; E44.0 Moderate protein-calorie malnutrition; E87.1 Hypo-osmolality and hyponatremia; Z68.43 Body mass index [BMI] 50.0-59.9, adult; E66.2 Morbid (severe) obesity with alveolar hypoventilation; I82.622 Acute embolism and thrombosis of deep veins of left upper extremity; E87.2 Acidosis; I13.0 Hypertensive heart and chronic kidney disease with heart failure and stage 1 through stage 4 chronic kidney disease, or unspecified chronic kidney disease; I42.0 Dilated cardiomyopathy; E87.6 Hypokalemia; J44.9 Chronic obstructive pulmonary disease, unspecified; E11.22 Type 2 diabetes mellitus with diabetic chronic kidney disease; E78.5 Hyperlipidemia, unspecified; E83.42 Hypomagnesemia; E86.0 Dehydration; I95.89 Other hypotension; N18.2 Chronic kidney disease, stage 2 (mild); Z20.822 Contact with and (suspected) exposure to COVID-19; E87.5 Hyperkalemia; R74.01 Elevation of levels of liver transaminase levels; E86.1 Hypovolemia; K76.0 Fatty (change of) liver, not elsewhere classified; I44.0 Atrioventricular block, first degree; G90.8 Other disorders of autonomic nervous system; I48.91 Unspecified atrial fibrillation; T46.2X5A Adverse effect of other antidysrhythmic drugs, initial encounter; Z99.81 Dependence on supplemental oxygen; Z79.4 Long term (current) use of insulin; Z95.810 Presence of automatic (implantable) cardiac defibrillator; Z79.82 Long term (current) use of aspirin; Z79.84 Long term (current) use of oral hypoglycemic drugs; Z79.899 Other long term (current) drug therapy
CPT/HCPCS: 36415; 36573; 36600; 71045; 76705; 76770; 80048; 80053; 80076; 81003; 82043; 82140; 82248; 82375; 82533; 82550; 82570; 82805; 82962; 83735; 83880; 83935; 84100; 84300; 84443; 84484; 85025; 86705; 86709; 86803; 87340; 93005; 93971; 94640; 94664; 97162; 99291; C1725; C1769; J0282; J1265; J1650; J1815; J2270; J2370; J2405; J3475; J3490; J7030; J7060; J7626

== ENCOUNTER 2022-01-04 11:24 | Emergency (ER) | payer OTHER, MEDICAID ==
[~2022-01-04] VITALS: Ht 175.3 cm; Wt 162.7 kg
[~2022-01-04 11:24] MED LIST changes: +ACET-3163 MT; +AMI2 PO; +AMOX1TAB16 PO; -ASPI-1497 PO; +DOXY100C5 MT; +FURO40TA5 MT; -FURO80TA3 MT; +HYDR-4001 MT; -IBUP-2029 MT; -METO5TAB7 MT; -SACU1TAB7 PO; +XAR15 PO
[2022-01-04 11:45] VITALS: BP 100/69
[2022-01-04] MEDS ORDERED: COLL30OI TP (13:00)
[2022-01-04] MEDS ORDERED: BACITRACIN 15GM TUBE TOP ONE (13:15)
== END 2022-01-04 13:49 | disposition home or self-care (01) ==
LOC: ER 11:24
DX: Z48.00 Encounter for change or removal of nonsurgical wound dressing (principal)
CPT/HCPCS: 99283

== ENCOUNTER 2023-04-14 14:35 | Emergency (ER) | payer OTHER, MEDICAID ==
[~2023-04-14] VITALS: Ht 175.3 cm; Wt 141.0 kg
[~2023-04-14 14:35] MED LIST changes: -ACET-3163 MT; +ALBU18HF2 IH; -AMOX1TAB16 PO; +BECL10.6 INH; +CARV12.545 PO; +CHOL500051 PO; -COR25 PO; +DAPA10TA PO; -DOXY100C5 MT; -FURO40TA5 MT; +FURO80TA3 PO; -GABA-532 MT; -HYDR-4001 MT; +LEVO150T8 PO; -METF-414 PO; +METO5TAB7 PO; -MOME13HF INH; -POTA-202 MT; +SACU1TAB7 PO; +SPIR25TA6 PO; -XAR15 PO
[2023-04-14 14:46] VITALS: O2SAT 95
[2023-04-14 15:27] LABS: DIFFERENTIAL COMMENT 1; HEMATOCRIT. 33.4 % (42.0-52.0); HEMOGLOBIN. 10.5 g/dL (14.0-18.0); MEAN CORPUSCULAR HEMOGLOBIN 27.2 pg (28.0-32.0); MEAN CORPUSCULAR HGB CONC 31.4 g/dL (31.0-37.0); MEAN CORPUSCULAR VOLUME 86.5 fL (80.0-94.0); MEAN PLATELET VOLUME 8.5 fl (7.4-10.4); PLATELET 275 x1000/uL (130-400); RED BLOOD CELL COUNT 3.86 mill/uL (4.7-6.1); RED CELL DISTRIBUTION WIDTH 16.4 % (11.6-14.6); WHITE BLOOD COUNT 9.7 x1000/uL (4.5-11.0)
[2023-04-14 15:33] LABS: CHLORIDE 96 mEq/L (98-107); INDEX HEMOLYSI 1 (1-3); INDEX ICTERIC 1 (1-4); INDEX LIPEMIC 1 (1-3); POTASSIUM 3.7 mEq/L (3.5-5.1); SODIUM 131 mEq/L (136-145)
[2023-04-14 15:45] LABS: ALANINE AMINOTRANSFERASE 23 IU/L (13-61); ALBUMIN 2.5 g/dL (3.4-5.0); ASPARTATE AMINOTRANSFERASE 30 IU/L (15-37); BILIRUBIN TOTAL 0.9 mg/dL (0.1-1.0); CALCIUM 8.1 mg/dL (8.5-10.1); CARBON DIOXIDE 28 mEq/L (21-32); CREATININE 3.8 mg/dL (0.6-1.3); GLUCOSE 93 mg/dL (70-105); NT PRO B-TYPE NATRIURETIC PEP 4363 pg/mL (5-125); TROPONIN I HIGH SENSITIVITY 20 ng/L (<78); UREA NITROGEN BLOOD 46 mg/dL (7-21)
[2023-04-14 16:12] LABS: PLATELET ESTIMATE NORMAL
[2023-04-14 17:43] LABS: TROPONIN I HIGH SENSITIVITY 17 ng/L (<78)
[2023-04-14] MEDS ORDERED: SODIUM CHLORIDE 0.9% 500 ML IV ONE (18:00)
[2023-04-15 01:23] VITALS: BP 122/67; PULSE 88; RESP 14; TEMP 98.2
== END 2023-04-15 01:21 | disposition short-term general hospital (02) ==
LOC: ER 14:35
DX: N17.9 Acute kidney failure, unspecified (principal); I11.0 Hypertensive heart disease with heart failure; I50.9 Heart failure, unspecified; J44.9 Chronic obstructive pulmonary disease, unspecified; E11.9 Type 2 diabetes mellitus without complications; J45.909 Unspecified asthma, uncomplicated; Z20.822 Contact with and (suspected) exposure to COVID-19
CPT/HCPCS: 99285; 96360; 71045; 87426; 80053; 83880; 85025; 84484; 36415; 93005; J7040; C9803

== ENCOUNTER 2023-06-11 16:13 | Inpatient (IN) | payer MEDICARE, OTHER, MEDICAID ==
[~2023-06-11] VITALS: Ht 167.6 cm; Wt 130.6 kg
[2023-06-11 14:25] VITALS: RESP 16
[2023-06-11] MEDS ORDERED: PROPOFOL 10MG/ML 100ML 100 ML IV STA ×2 (16:43→18:28)
[2023-06-11] MEDS ORDERED: NOREPINEPHRINE 8MG/250ML PMX 250 ML IV PRN (16:45)
[2023-06-11] MEDS ORDERED: VANCOMYCIN 1G PREMIX 200 ML IV ONE (16:45)
[2023-06-11] MEDS ORDERED: PIPERACILLIN/TAZO 3.375G/50ML 50 ML IV NR (16:45)
[2023-06-11] MEDS ORDERED: SODIUM CHLORIDE 0.9% 1000ML BAG (SEPSIS BOLUS) IV ONE (16:45)
[2023-06-11] MEDS ORDERED: VANCOMYCIN 1G PREMIX 200 ML IV NR (16:45)
[2023-06-11] MEDS ORDERED: PIPERACILLIN/TAZO 3.375G/50ML 50 ML IV ONE (16:45)
[2023-06-11 17:10] LABS: BG BASE EXCESS -2.2 mmol/L (-2.0-2.0); BG CARBOXYHEMOGLOBIN 1.1 % (0.5-1.5); BG DEOXYHEMOGLOBIN 0.1 % (0.0-5.0); BG HCO3 ACT 27.4 mmol/L (22.0-26.0); BG METHEMOGLOBIN 0.6 % (0.0-1.5); BG OXYGEN SATURATION 99.9 % (92.0-98.5); BG OXYHEMOGLOBIN 98.2 % (94.0-97.0); BG PCO2 69.8 mmHg (35.0-45.0); BG PH 7.211 (7.350-7.450); BG PO2 486.3 mmHg (75.0-100.0); BG SAMPLE SITE RIGHT BRACHIAL; BG TOTAL HEMOGLOBIN 14.3 g/dL (12.0-18.0); BG VENT MODE VENT - AC
[2023-06-11 17:11] LABS: INR 1.2; PROTHROMBIN TIME 12.6 sec (9.6-11.0)
[2023-06-11 17:19] LABS: ALANINE AMINOTRANSFERASE 14 IU/L (10-49); ALBUMIN 3.5 g/dL (3.2-4.8); ASPARTATE AMINOTRANSFERASE 31 IU/L (<34); BILIRUBIN TOTAL 0.7 mg/dL (0.1-1.0); CALCIUM 8.7 mg/dL (8.7-10.4); CARBON DIOXIDE 19 mEq/L (21-32); CHLORIDE 103 mEq/L (98-107); CREATININE 1.2 mg/dL (0.6-1.3); GLUCOSE 157 mg/dL (70-105); POTASSIUM 4.5 mEq/L (3.5-5.1); PROTEIN TOTAL 6.6 g/dL (6.0-8.3); SODIUM 138 mEq/L (136-145); TROPONIN I HIGH SENSITIVITY 17 ng/L (3.0-53); UREA NITROGEN BLOOD 7 mg/dL (9-23)
[2023-06-11 17:22] LABS: ETHANOL BLOOD < 10 mg/dL (<10); LACTIC ACID 4.2 mmol/L (0.4-2.0)
[2023-06-11] MEDS ORDERED: FENTANYL 2500MCG/250ML PMX 250 ML IV ONE (17:30)
[2023-06-11] MEDS ORDERED: MIDAZOLAM 100MG/100ML PMX 100 ML IV PRN (17:30)
[2023-06-11] MEDS ORDERED: FENTANYL CITRATE 2,500 MCG in SODIUM CHLORIDE 0.9% 200 ML IV PRN (17:45)
[2023-06-11 18:10] VITALS: RESP 20
[2023-06-11 18:12] LABS: CLARITY URINE CLEAR (CLEAR); COLOR URINE YELLOW (YELLOW); GLUCOSE URINE 3+ (NEGATIVE); KETONES URINE NEGATIVE (NEGATIVE); LEUKOCYTE ESTERASE URINE NEGATIVE (NEGATIVE); NITRITE URINE NEGATIVE (NEGATIVE); OCCULT BLOOD URINE NEGATIVE (NEGATIVE); PH URINE 6.5 (4.5-8.0); PROTEIN URINE 2+ (NEGATIVE); UROBILINOGEN URINE 0.2 E.U./dL (0.2-1.0)
[2023-06-11] MEDS: MIDAZOLAM HCL 100 MG in SODIUM CHLORIDE 0.9% 100 ML IV PRN (18:26)
[2023-06-11] MEDS ORDERED: NICARDIPINE 50 MG in SODIUM CHLORIDE 0.9% 230 ML IV STA (18:33)
[2023-06-11 18:55] LABS: *AMPHETAMINES SCREEN URINE NEGATIVE (NEGATIVE); *BARBITURATES SCREEN URINE NEGATIVE (NEGATIVE); *BENZODIAZEPINES SCREEN URINE NEGATIVE (NEGATIVE); *COCAINE SCREEN URINE NEGATIVE (NEGATIVE); ECSTASY MDMA SCREEN URINE NEGATIVE (NEGATIVE); METHADONE URINE SCREEN Neg (NEGATIVE); OPIATES URINE SCREEN NEGATIVE (NEGATIVE); PHENCYCLIDINE URINE SCREEN NEGATIVE (NEGATIVE)
[2023-06-11 19:10] LABS: HEMATOCRIT. 39.8 % (42.0-52.0); HEMOGLOBIN. 12.9 g/dL (14.0-18.0); MEAN CORPUSCULAR HEMOGLOBIN 28.6 pg (28.0-32.0); MEAN CORPUSCULAR HGB CONC 32.4 g/dL (31.0-37.0); MEAN CORPUSCULAR VOLUME 88.2 fL (80.0-94.0); MEAN PLATELET VOLUME 8.5 fl (7.4-10.4); PLATELET 186 x1000/uL (130-400); RED BLOOD CELL COUNT 4.51 mill/uL (4.7-6.1); WHITE BLOOD COUNT 10.9 x1000/uL (4.5-11.0)
[2023-06-11 19:13] LABS: DIFFERENTIAL COMMENT 1
[2023-06-11 19:18] LABS: BACTERIA URINE 1+; RBC URINE 0-2 /hpf (0-2); SQUAMOUS EPITHELIAL CELL URINE FEW /lpf (RARE/1+); WBC URINE 0-2 /hpf (0-2)
[2023-06-11 19:23] LABS: TROPONIN I HIGH SENSITIVITY 38 ng/L (3.0-53)
[2023-06-11 19:45] VITALS: PULSE 98; RESP 20
[2023-06-11 20:44] LABS: ANISOCYTOSIS 1+; PLATELET ESTIMATE NORMAL
[2023-06-11] MEDS ORDERED: PROPOFOL 10MG/ML 100ML 100 ML IV SCH (21:15)
[2023-06-11] MEDS ORDERED: LEVETIRACETAM 500MG PREMIX 100 ML IV ONE (21:15)
[2023-06-11 21:33] LABS: BASOPHILS % 0.4 % (0.0-2.0); EOSINOPHILS % 0.5 % (0.0-5.0); HEMATOCRIT. 40.6 % (42.0-52.0); HEMOGLOBIN. 12.8 g/dL (14.0-18.0); LYMPHOCYTES % 7.5 % (20.0-50.0); MEAN CORPUSCULAR HEMOGLOBIN 27.9 pg (28.0-32.0); MEAN CORPUSCULAR HGB CONC 31.4 g/dL (31.0-37.0); MEAN CORPUSCULAR VOLUME 88.6 fL (80.0-94.0); NEUTROPHILS % 88.6 % (40.0-76.0); RED BLOOD CELL COUNT 4.59 mill/uL (4.7-6.1); RED CELL DISTRIBUTION WIDTH 17.7 % (11.6-14.6); WHITE BLOOD COUNT 15.6 x1000/uL (4.5-11.0)
[2023-06-11 21:38] LABS: DIFFERENTIAL COMMENT 1
[2023-06-11 21:50] VITALS: PULSE 100; RESP 20
[2023-06-11 22:02] LABS: MEAN PLATELET VOLUME 9.2 fl (7.4-10.4); PLATELET 192 x1000/uL (130-400)
[2023-06-12] VITALS (28 sets, daily range): BP systolic 47–150; BP diastolic 24–115; PULSE 66–102; RESP 20–30; TEMP 93–93.2
[2023-06-12 04:32] LABS: BASOPHILS % 0.2 % (0.0-2.0); DIFFERENTIAL COMMENT 0; EOSINOPHILS % 0.7 % (0.0-5.0); HEMATOCRIT. 41.8 % (42.0-52.0); HEMOGLOBIN. 12.9 g/dL (14.0-18.0); MEAN CORPUSCULAR HGB CONC 30.9 g/dL (31.0-37.0); MEAN CORPUSCULAR VOLUME 90.5 fL (80.0-94.0); MEAN PLATELET VOLUME 8.5 fl (7.4-10.4); MONOCYTES % 11.5 % (2.0-8.0); NEUTROPHILS % 79.6 % (40.0-76.0); PLATELET 157 x1000/uL (130-400); RED BLOOD CELL COUNT 4.62 mill/uL (4.7-6.1); RED CELL DISTRIBUTION WIDTH 18.4 % (11.6-14.6); WHITE BLOOD COUNT 14.9 x1000/uL (4.5-11.0)
[2023-06-12 04:53] LABS: AMYLASE 135 IU/L (30-118); CHOLESTEROL 136 mg/dL (<200); HDL CHOLESTEROL 25 mg/dL (>55); LDL CHOLESTEROL 77 mg/dL (5-100); PHOSPHORUS 2.5 mg/dL (2.5-4.9); TRIGLYCERIDE 272 mg/dL (0-150)
[2023-06-12 04:56] LABS: ALANINE AMINOTRANSFERASE 13 IU/L (10-49); ALBUMIN 3.5 g/dL (3.2-4.8); ASPARTATE AMINOTRANSFERASE 26 IU/L (<34); BILIRUBIN TOTAL 0.9 mg/dL (0.1-1.0); CALCIUM 8.6 mg/dL (8.7-10.4); CARBON DIOXIDE 23 mEq/L (21-32); CHLORIDE 105 mEq/L (98-107); GLUCOSE 94 mg/dL (70-105); POTASSIUM 4.3 mEq/L (3.5-5.1); PROTEIN TOTAL 7.3 g/dL (6.0-8.3); SODIUM 137 mEq/L (136-145); T4 FREE 1.42 ng/dL (0.89-1.76); THYROID STIMULATING HORMONE 2.91 uIU/mL (0.55-4.78); UREA NITROGEN BLOOD 8 mg/dL (9-23)
[2023-06-12 05:12] LABS: TROPONIN I HIGH SENSITIVITY 73 ng/L (3.0-53)
[2023-06-12] MEDS: FUROSEMIDE 40MG/4ML VIAL IV SCH ×2 (06:00→09:00)
[2023-06-12] MEDS ORDERED: PIPERACILLIN/TAZOBACTAM 3.375 G in DEXTROSE 5% WATER 50 ML IV SCH (06:00)
[2023-06-12] MEDS: DEXT 5%/0.45% NACL 1000ML 1,000 ML IV SCH ×2 (06:00→21:00)
[2023-06-12 06:23] LABS: CREATINE KINASE MB FRACTION 1.2 ng/mL (0.5-3.6)
[2023-06-12] MEDS: PROPOFOL 10MG/ML 100ML 100 ML IV SCH ×4 (07:15→22:05)
[2023-06-12] MEDS: VANCOMYCIN 1.25GM PMX (XELLIA) 250 ML IV SCH ×2 (08:00→23:45)
[2023-06-12] MEDS ORDERED: VANCOMYCIN 1.25GM PMX (XELLIA) 250 ML IV SCH (08:00)
[2023-06-12] MEDS: PIPERACILLIN/TAZO 3.375G/50ML 50 ML IV SCH ×3 (08:07→22:00)
[2023-06-12] MEDS: ENOXAPARIN 30MG/0.3ML SYR SUBCUT SCH ×2 (09:00→21:36)
[2023-06-12] MEDS: ASPIRIN 81MG EC TABLET PO SCH (09:00)
[2023-06-12] MEDS ORDERED: MAGNESIUM 2 G PREMIX 50 ML IV NR (10:30)
[2023-06-12 11:50] LABS: BG BASE EXCESS -0.4 mmol/L (-2.0-2.0); BG CARBOXYHEMOGLOBIN 0.8 % (0.5-1.5); BG DEOXYHEMOGLOBIN 1.3 % (0.0-5.0); BG HCO3 ACT 22.3 mmol/L (22.0-26.0); BG METHEMOGLOBIN 0.2 % (0.0-1.5); BG OXYGEN SATURATION 98.7 % (92.0-98.5); BG OXYHEMOGLOBIN 97.7 % (94.0-97.0); BG PCO2 31.6 mmHg (35.0-45.0); BG PH 7.467 (7.350-7.450); BG PO2 112.6 mmHg (75.0-100.0); BG SAMPLE SITE RIGHT RADIAL; BG TOTAL HEMOGLOBIN 15.3 g/dL (12.0-18.0); BG VENT MODE VENT - AC
[2023-06-12] MEDS: MIDAZOLAM HCL 100 MG in SODIUM CHLORIDE 0.9% 100 ML IV PRN ×2 (16:35→21:37)
[2023-06-12] MEDS ORDERED: MIDAZOLAM 100MG/100ML PMX 100 ML IV PRN (21:00)
[2023-06-12] MEDS ORDERED: DEXTROSE 50% WATER 50ML SYRINGE IV PRN (23:00)
[2023-06-12] MEDS: PANTOPRAZOLE SODIUM 40 MG/VIAL IV SCH (23:44)
[2023-06-12] MEDS: PIPERACILLIN/TAZOBACTAM 3.375 G in DEXTROSE 5% WATER 50 ML IV SCH (23:45)
[2023-06-13] VITALS (102 sets, daily range): BP systolic 43–137; BP diastolic 28–101; PULSE 77–116; RESP 17–26; TEMP 96.8–99.3
[2023-06-13] MEDS: PROPOFOL 10MG/ML 100ML 100 ML IV SCH ×4 (00:01→06:29)
[2023-06-13] MEDS: NOREPINEPHRINE 8MG/250ML PMX 250 ML IV PRN ×3 (01:28→15:41)
[2023-06-13 05:08] LABS: BASOPHILS % 0.2 % (0.0-2.0); HEMATOCRIT. 43.8 % (42.0-52.0); HEMOGLOBIN. 14.2 g/dL (14.0-18.0); LYMPHOCYTES % 7.9 % (20.0-50.0); MEAN CORPUSCULAR HEMOGLOBIN 28.4 pg (28.0-32.0); MEAN CORPUSCULAR HGB CONC 32.5 g/dL (31.0-37.0); MEAN CORPUSCULAR VOLUME 87.4 fL (80.0-94.0); MEAN PLATELET VOLUME 9.1 fl (7.4-10.4); MONOCYTES % 12.1 % (2.0-8.0); NEUTROPHILS % 76.8 % (40.0-76.0); PLATELET 156 x1000/uL (130-400); RED BLOOD CELL COUNT 5.01 mill/uL (4.7-6.1); RED CELL DISTRIBUTION WIDTH 17.6 % (11.6-14.6); WHITE BLOOD COUNT 13.8 x1000/uL (4.5-11.0)
[2023-06-13 05:20] LABS: CALCIUM 8.6 mg/dL (8.7-10.4); CARBON DIOXIDE 19 mEq/L (21-32); CHLORIDE 104 mEq/L (98-107); CREATININE 1.2 mg/dL (0.6-1.3); GLUCOSE 88 mg/dL (70-105); POTASSIUM 2.9 mEq/L (3.5-5.1); SODIUM 137 mEq/L (136-145); UREA NITROGEN BLOOD 12 mg/dL (9-23)
[2023-06-13] MEDS: BLOOD SUGAR DIAGNOSTIC STRIP TEST SCH ×4 (05:35→21:00)
[2023-06-13] MEDS: PIPERACILLIN/TAZOBACTAM 3.375 G in DEXTROSE 5% WATER 50 ML IV SCH ×3 (05:36→21:29)
[2023-06-13] MEDS: INSULIN LISPRO 100 UNITS/ML SUBCUT SCH ×4 (06:01→21:00)
[2023-06-13 06:18] LABS: TROPONIN I HIGH SENSITIVITY 200 ng/L (3.0-53)
[2023-06-13] MEDS: VANCOMYCIN 1.25GM PMX (XELLIA) 250 ML IV SCH (08:30)
[2023-06-13] MEDS: ENOXAPARIN 30MG/0.3ML SYR SUBCUT SCH (08:30)
[2023-06-13] MEDS: ASPIRIN 81MG EC TABLET PO SCH (08:30)
[2023-06-13] MEDS: MIDAZOLAM HCL 100 MG in SODIUM CHLORIDE 0.9% 100 ML IV PRN (08:30)
[2023-06-13] MEDS: PANTOPRAZOLE SODIUM 40 MG/VIAL IV SCH (08:30)
[2023-06-13] MEDS: FUROSEMIDE 40MG/4ML VIAL IV SCH (08:30)
[2023-06-13] MEDS ORDERED: PROPOFOL 10MG/ML 100ML 100 ML IV PRN (09:00)
[2023-06-13 09:34] LABS: BG BASE EXCESS -3.9 mmol/L (-2.0-2.0); BG DEOXYHEMOGLOBIN 3.1 % (0.0-5.0); BG FRACTION INSPIRED OXYGEN 40; BG HCO3 ACT 19.8 mmol/L (22.0-26.0); BG METHEMOGLOBIN 0.3 % (0.0-1.5); BG OXYGEN SATURATION 96.9 % (92.0-98.5); BG OXYHEMOGLOBIN 95.6 % (94.0-97.0); BG PCO2 32.8 mmHg (35.0-45.0); BG PH 7.399 (7.350-7.450); BG PO2 86.3 mmHg (75.0-100.0); BG SAMPLE SITE RIGHT RADIAL; BG TOTAL HEMOGLOBIN 16.5 g/dL (12.0-18.0); BG VENT MODE VENT - AC
[2023-06-13] MEDS ORDERED: POTASSIUM CHLORIDE INJ 40 MEQ in DEXT 5% WATER 500 ML IV NR (11:00)
[2023-06-13] MEDS: DEXT 5%/0.45% NACL 1000ML 1,000 ML IV SCH (11:22)
[2023-06-13] MEDS ORDERED: ENOXAPARIN 100MG/ML SYR SUBCUT NR (11:30)
[2023-06-13] MEDS ORDERED: MAGNESIUM 2 G PREMIX 50 ML IV NR (11:30)
[2023-06-13] MEDS: ENOXAPARIN 150MG/ML SYR SUBCUT SCH (21:29)
[2023-06-14] VITALS (98 sets, daily range): BP systolic 54–159; BP diastolic 25–115; PULSE 78–120; RESP 0–27; TEMP 98.6–99.9
[2023-06-14] MEDS: NOREPINEPHRINE 8MG/250ML PMX 250 ML IV PRN (01:35)
[2023-06-14] MEDS: PHENYLEPHRINE 100 MG in DEXT 5% WATER 240 ML IV PRN ×4 (02:00→18:09)
[2023-06-14] MEDS: DEXT 5%/0.45% NACL 1000ML 1,000 ML IV SCH ×2 (04:25→21:20)
[2023-06-14] MEDS: PIPERACILLIN/TAZOBACTAM 3.375 G in DEXTROSE 5% WATER 50 ML IV SCH ×3 (05:11→21:19)
[2023-06-14] MEDS: BLOOD SUGAR DIAGNOSTIC STRIP TEST SCH ×4 (05:11→21:01)
[2023-06-14] MEDS: INSULIN LISPRO 100 UNITS/ML SUBCUT SCH ×4 (05:18→21:00)
[2023-06-14 05:39] LABS: BASOPHILS % 0.2 % (0.0-2.0); HEMATOCRIT. 41.4 % (42.0-52.0); HEMOGLOBIN. 13.4 g/dL (14.0-18.0); LYMPHOCYTES % 13.9 % (20.0-50.0); MEAN CORPUSCULAR HEMOGLOBIN 28.1 pg (28.0-32.0); MEAN CORPUSCULAR HGB CONC 32.4 g/dL (31.0-37.0); MEAN CORPUSCULAR VOLUME 86.9 fL (80.0-94.0); MEAN PLATELET VOLUME 9.5 fl (7.4-10.4); MONOCYTES % 9.6 % (2.0-8.0); NEUTROPHILS % 73.3 % (40.0-76.0); PLATELET 156 x1000/uL (130-400); RED BLOOD CELL COUNT 4.76 mill/uL (4.7-6.1); RED CELL DISTRIBUTION WIDTH 18.2 % (11.6-14.6); WHITE BLOOD COUNT 11.1 x1000/uL (4.5-11.0)
[2023-06-14 05:58] LABS: CALCIUM 8.3 mg/dL (8.7-10.4); CARBON DIOXIDE 21 mEq/L (21-32); CHLORIDE 106 mEq/L (98-107); GLUCOSE 80 mg/dL (70-105); POTASSIUM 3.5 mEq/L (3.5-5.1); SODIUM 139 mEq/L (136-145); TRIGLYCERIDE 125 mg/dL (0-150); UREA NITROGEN BLOOD 12 mg/dL (9-23)
[2023-06-14 07:33] LABS: CREATININE 1.6 mg/dL (0.6-1.3)
[2023-06-14 07:42] LABS: TROPONIN I HIGH SENSITIVITY 159 ng/L (3.0-53)
[2023-06-14] MEDS: FUROSEMIDE 40MG/4ML VIAL IV SCH (08:13)
[2023-06-14] MEDS: PANTOPRAZOLE SODIUM 40 MG/VIAL IV SCH (08:13)
[2023-06-14] MEDS: ASPIRIN 81MG EC TABLET PO SCH (08:13)
[2023-06-14] MEDS: ENOXAPARIN 150MG/ML SYR SUBCUT SCH (08:14)
[2023-06-14] MEDS ORDERED: LIDOCAINE HCL 1% 10 MG/ML 10ML VIAL ONE (08:16)
[2023-06-14] MEDS: ENOXAPARIN 120MG/0.8ML SYR SUBCUT SCH ×2 (09:00→21:22)
[2023-06-14] MEDS ORDERED: MAGNESIUM 2 G PREMIX 50 ML IV NR (11:00)
[2023-06-15] VITALS (106 sets, daily range): BP systolic 75–161; BP diastolic 31–140; PULSE 70–102; RESP 0–42; TEMP 98.5–99.9
[2023-06-15] MEDS: PHENYLEPHRINE 100 MG in DEXT 5% WATER 240 ML IV PRN ×4 (00:26→20:53)
[2023-06-15] MEDS: PIPERACILLIN/TAZOBACTAM 3.375 G in DEXTROSE 5% WATER 50 ML IV SCH ×3 (05:13→21:18)
[2023-06-15] MEDS: BLOOD SUGAR DIAGNOSTIC STRIP TEST SCH ×4 (05:13→20:05)
[2023-06-15 05:46] LABS: BASOPHILS % 0.3 % (0.0-2.0); EOSINOPHILS % 2.6 % (0.0-5.0); HEMATOCRIT. 43.5 % (42.0-52.0); HEMOGLOBIN. 13.7 g/dL (14.0-18.0); LYMPHOCYTES % 18.5 % (20.0-50.0); MEAN CORPUSCULAR HGB CONC 31.5 g/dL (31.0-37.0); MEAN PLATELET VOLUME 9.7 fl (7.4-10.4); MONOCYTES % 8.7 % (2.0-8.0); NEUTROPHILS % 69.9 % (40.0-76.0); PLATELET 191 x1000/uL (130-400); RED BLOOD CELL COUNT 4.89 mill/uL (4.7-6.1); RED CELL DISTRIBUTION WIDTH 18.4 % (11.6-14.6); WHITE BLOOD COUNT 9.3 x1000/uL (4.5-11.0)
[2023-06-15 06:12] LABS: CALCIUM 8.5 mg/dL (8.7-10.4); CARBON DIOXIDE 24 mEq/L (21-32); CHLORIDE 106 mEq/L (98-107); CREATININE 1.4 mg/dL (0.6-1.3); GLUCOSE 86 mg/dL (70-105); POTASSIUM 3.3 mEq/L (3.5-5.1); SODIUM 138 mEq/L (136-145); UREA NITROGEN BLOOD 10 mg/dL (9-23)
[2023-06-15] MEDS: INSULIN LISPRO 100 UNITS/ML SUBCUT SCH ×4 (06:45→20:14)
[2023-06-15] MEDS ORDERED: POTASSIUM CHLORIDE 20MEQ TABLET SR PO NR (09:00)
[2023-06-15] MEDS: FUROSEMIDE 40MG/4ML VIAL IV SCH (10:28)
[2023-06-15] MEDS: PANTOPRAZOLE SODIUM 40 MG/VIAL IV SCH (10:30)
[2023-06-15] MEDS: ASPIRIN 81MG EC TABLET PO SCH (10:30)
[2023-06-15] MEDS: ENOXAPARIN 120MG/0.8ML SYR SUBCUT SCH ×2 (10:36→20:05)
[2023-06-15] MEDS: PROPOFOL 10MG/ML 100ML 100 ML IV PRN ×2 (11:34→19:27)
[2023-06-15] MEDS: DEXT 5%/0.45% NACL 1000ML 1,000 ML IV SCH (12:50)
[2023-06-16] VITALS (96 sets, daily range): BP systolic 80–145; BP diastolic 52–86; PULSE 68–113; RESP 17–32; TEMP 98.4–98.7
[2023-06-16] MEDS: PROPOFOL 10MG/ML 100ML 100 ML IV PRN ×4 (01:55→20:07)
[2023-06-16 05:46] LABS: BASOPHILS % 0.5 % (0.0-2.0); EOSINOPHILS % 4.3 % (0.0-5.0); HEMATOCRIT. 40.1 % (42.0-52.0); HEMOGLOBIN. 12.5 g/dL (14.0-18.0); LYMPHOCYTES % 14.9 % (20.0-50.0); MEAN CORPUSCULAR HEMOGLOBIN 27.9 pg (28.0-32.0); MEAN CORPUSCULAR HGB CONC 31.3 g/dL (31.0-37.0); MEAN CORPUSCULAR VOLUME 89.4 fL (80.0-94.0); MEAN PLATELET VOLUME 9.6 fl (7.4-10.4); MONOCYTES % 8.2 % (2.0-8.0); NEUTROPHILS % 72.1 % (40.0-76.0); PLATELET 177 x1000/uL (130-400); RED BLOOD CELL COUNT 4.49 mill/uL (4.7-6.1); RED CELL DISTRIBUTION WIDTH 18.1 % (11.6-14.6); WHITE BLOOD COUNT 7.6 x1000/uL (4.5-11.0)
[2023-06-16] MEDS: DEXT 5%/0.45% NACL 1000ML 1,000 ML IV SCH ×2 (05:48→21:40)
[2023-06-16] MEDS: BLOOD SUGAR DIAGNOSTIC STRIP TEST SCH ×4 (05:49→21:26)
[2023-06-16] MEDS: PIPERACILLIN/TAZOBACTAM 3.375 G in DEXTROSE 5% WATER 50 ML IV SCH ×3 (05:49→21:39)
[2023-06-16 06:02] LABS: CALCIUM 8.5 mg/dL (8.7-10.4); CARBON DIOXIDE 20 mEq/L (21-32); CHLORIDE 105 mEq/L (98-107); CREATININE 1.3 mg/dL (0.6-1.3); GLUCOSE 92 mg/dL (70-105); POTASSIUM 3.2 mEq/L (3.5-5.1); SODIUM 136 mEq/L (136-145); TRIGLYCERIDE 155 mg/dL (0-150); UREA NITROGEN BLOOD 15 mg/dL (9-23)
[2023-06-16] MEDS: PHENYLEPHRINE 100 MG in DEXT 5% WATER 240 ML IV PRN ×2 (06:35→20:01)
[2023-06-16] MEDS: INSULIN LISPRO 100 UNITS/ML SUBCUT SCH ×4 (07:00→21:00)
[2023-06-16] MEDS: PANTOPRAZOLE SODIUM 40 MG/VIAL IV SCH (08:35)
[2023-06-16] MEDS: ENOXAPARIN 120MG/0.8ML SYR SUBCUT SCH ×2 (08:36→22:08)
[2023-06-16] MEDS: ASPIRIN 81MG EC TABLET PO SCH (08:36)
[2023-06-16] MEDS: FUROSEMIDE 40MG/4ML VIAL IV SCH (08:36)
[2023-06-16] MEDS ORDERED: POTASSIUM CHLORIDE 20MEQ TABLET SR PO NR (09:00)
[2023-06-16] MEDS: VANCOMYCIN 750MG PREMIX 150 ML IV SCH (11:08)
[2023-06-16] MEDS: MIDODRINE HCL 5MG TABLET PO SCH ×3 (11:09→17:07)
[2023-06-17] VITALS (100 sets, daily range): BP systolic 83–132; BP diastolic 55–89; PULSE 70–110; RESP 10–24; TEMP 98.2–99.2
[2023-06-17] MEDS: PROPOFOL 10MG/ML 100ML 100 ML IV PRN ×3 (01:45→11:38)
[2023-06-17 05:37] LABS: BASOPHILS % 0.3 % (0.0-2.0); HEMATOCRIT. 40.6 % (42.0-52.0); LYMPHOCYTES % 13.2 % (20.0-50.0); MEAN CORPUSCULAR HEMOGLOBIN 28.7 pg (28.0-32.0); MEAN CORPUSCULAR VOLUME 89.5 fL (80.0-94.0); MEAN PLATELET VOLUME 9.1 fl (7.4-10.4); MONOCYTES % 11.6 % (2.0-8.0); NEUTROPHILS % 70.9 % (40.0-76.0); PLATELET 158 x1000/uL (130-400); RED BLOOD CELL COUNT 4.53 mill/uL (4.7-6.1); WHITE BLOOD COUNT 9.4 x1000/uL (4.5-11.0)
[2023-06-17 05:47] LABS: CALCIUM 8.9 mg/dL (8.7-10.4); CARBON DIOXIDE 22 mEq/L (21-32); CHLORIDE 106 mEq/L (98-107); CREATININE 1.2 mg/dL (0.6-1.3); GLUCOSE 91 mg/dL (70-105); POTASSIUM 3.4 mEq/L (3.5-5.1); SODIUM 138 mEq/L (136-145); UREA NITROGEN BLOOD 14 mg/dL (9-23)
[2023-06-17] MEDS: PIPERACILLIN/TAZOBACTAM 3.375 G in DEXTROSE 5% WATER 50 ML IV SCH ×2 (06:35→13:17)
[2023-06-17] MEDS: BLOOD SUGAR DIAGNOSTIC STRIP TEST SCH ×4 (06:36→21:00)
[2023-06-17] MEDS: INSULIN LISPRO 100 UNITS/ML SUBCUT SCH ×4 (06:37→21:00)
[2023-06-17] MEDS: FUROSEMIDE 40MG/4ML VIAL IV SCH (08:44)
[2023-06-17] MEDS: VANCOMYCIN 750MG PREMIX 150 ML IV SCH (08:44)
[2023-06-17] MEDS: PANTOPRAZOLE SODIUM 40 MG/VIAL IV SCH (08:44)
[2023-06-17] MEDS: ENOXAPARIN 120MG/0.8ML SYR SUBCUT SCH ×2 (08:44→21:11)
[2023-06-17] MEDS: ASPIRIN 81MG EC TABLET PO SCH (08:44)
[2023-06-17] MEDS: MIDODRINE HCL 5MG TABLET PO SCH ×3 (08:46→16:02)
[2023-06-17] MEDS ORDERED: POTASSIUM CHLORIDE 20MEQ TABLET SR PO NR (09:00)
[2023-06-17] MEDS ORDERED: MAGNESIUM 2 G PREMIX 50 ML IV NR (10:00)
[2023-06-17] MEDS: PHENYLEPHRINE 100 MG in DEXT 5% WATER 240 ML IV PRN (13:16)
[2023-06-17] MEDS: DEXT 5%/0.45% NACL 1000ML 1,000 ML IV SCH (13:17)
[2023-06-17] MEDS: MIDAZOLAM HCL 100 MG in SODIUM CHLORIDE 0.9% 100 ML IV PRN (14:10)
[2023-06-17] MEDS: FENTANYL CITRATE/PF 2,500 MCG in SODIUM CHLORIDE 0.9% 200 ML IV PRN (14:11)
[2023-06-18] VITALS (101 sets, daily range): BP systolic 83–176; BP diastolic 55–103; PULSE 76–129; RESP 8–28; TEMP 98.3–100.1
[2023-06-18] MEDS: BLOOD SUGAR DIAGNOSTIC STRIP TEST SCH ×4 (05:43→21:34)
[2023-06-18] MEDS: INSULIN LISPRO 100 UNITS/ML SUBCUT SCH ×4 (05:43→21:00)
[2023-06-18 06:37] LABS: HEMATOCRIT. 34.7 % (42.0-52.0); HEMOGLOBIN. 11.4 g/dL (14.0-18.0); MEAN CORPUSCULAR HEMOGLOBIN 28.4 pg (28.0-32.0); MEAN CORPUSCULAR HGB CONC 32.7 g/dL (31.0-37.0); MEAN CORPUSCULAR VOLUME 86.7 fL (80.0-94.0); MEAN PLATELET VOLUME 9.5 fl (7.4-10.4); PLATELET 151 x1000/uL (130-400); RED CELL DISTRIBUTION WIDTH 17.6 % (11.6-14.6); WHITE BLOOD COUNT 5.9 x1000/uL (4.5-11.0)
[2023-06-18 06:46] LABS: CALCIUM 8.5 mg/dL (8.7-10.4); CARBON DIOXIDE 23 mEq/L (21-32); CHLORIDE 107 mEq/L (98-107); GLUCOSE 93 mg/dL (70-105); SODIUM 138 mEq/L (136-145); UREA NITROGEN BLOOD 14 mg/dL (9-23)
[2023-06-18 06:51] LABS: POTASSIUM 2.7 mEq/L (3.5-5.1)
[2023-06-18 06:56] LABS: DIFFERENTIAL COMMENT 1
[2023-06-18] MEDS ORDERED: POTASSIUM CHLORIDE 20MEQ/PACKET PO SCH (07:45)
[2023-06-18] MEDS ORDERED: MIDAZOLAM HCL 100 MG in SODIUM CHLORIDE 0.9% 80 ML IV PRN (08:45)
[2023-06-18] MEDS ORDERED: MIDAZOLAM 100MG/100ML PMX 100 ML IV PRN ×2 (08:45→09:00)
[2023-06-18] MEDS: PANTOPRAZOLE SODIUM 40 MG/VIAL IV SCH (08:51)
[2023-06-18] MEDS: ASPIRIN 81MG EC TABLET PO SCH (08:52)
[2023-06-18] MEDS: MIDODRINE HCL 5MG TABLET PO SCH ×3 (08:52→17:34)
[2023-06-18] MEDS: FUROSEMIDE 20MG/2ML VIAL IV SCH (08:53)
[2023-06-18] MEDS: DEXT 5%/0.45% NACL 1000ML 1,000 ML IV SCH (08:54)
[2023-06-18] MEDS: ENOXAPARIN 120MG/0.8ML SYR SUBCUT SCH ×2 (09:09→21:33)
[2023-06-18] MEDS: KCL 20MEQ/100ML PREMIX 100 ML IV SCH ×2 (09:09→10:56)
[2023-06-18] MEDS: MIDAZOLAM HCL 100 MG in SODIUM CHLORIDE 0.9% 100 ML IV PRN (09:13)
[2023-06-18 10:18] LABS: BG BASE EXCESS -2.3 mmol/L (-2.0-2.0); BG CARBOXYHEMOGLOBIN 0.3 % (0.5-1.5); BG DEOXYHEMOGLOBIN 2.3 % (0.0-5.0); BG FRACTION INSPIRED OXYGEN 40; BG HCO3 ACT 22.2 mmol/L (22.0-26.0); BG METHEMOGLOBIN 0.3 % (0.0-1.5); BG OXYGEN SATURATION 97.7 % (92.0-98.5); BG OXYHEMOGLOBIN 97.1 % (94.0-97.0); BG PCO2 37.5 mmHg (35.0-45.0); BG PH 7.391 (7.350-7.450); BG PO2 106.6 mmHg (75.0-100.0); BG SAMPLE SITE RIGHT RADIAL; BG TOTAL HEMOGLOBIN 13.2 g/dL (12.0-18.0); BG VENT MODE VENT - AC
[2023-06-18 13:26] LABS: ANISOCYTOSIS 1+; NUCLEATED RED BLOOD CELLS 1 /100 WBC; PLATELET ESTIMATE NORMAL
[2023-06-18 13:42] LABS: BG BASE EXCESS -4.1 mmol/L (-2.0-2.0); BG CARBOXYHEMOGLOBIN 0.4 % (0.5-1.5); BG DEOXYHEMOGLOBIN 2.6 % (0.0-5.0); BG FRACTION INSPIRED OXYGEN 40; BG HCO3 ACT 22.3 mmol/L (22.0-26.0); BG METHEMOGLOBIN 0.4 % (0.0-1.5); BG OXYGEN SATURATION 97.4 % (92.0-98.5); BG OXYHEMOGLOBIN 96.6 % (94.0-97.0); BG PCO2 45.8 mmHg (35.0-45.0); BG PH 7.305 (7.350-7.450); BG PO2 106.6 mmHg (75.0-100.0); BG SAMPLE SITE RIGHT RADIAL; BG TOTAL HEMOGLOBIN 13.4 g/dL (12.0-18.0); BG VENT MODE VENT - CPAP
[2023-06-18 17:33] LABS: POTASSIUM 3.7 mEq/L (3.5-5.1)
[2023-06-19] VITALS (100 sets, daily range): BP systolic 87–151; BP diastolic 50–97; PULSE 85–120; RESP 11–35; TEMP 98.1–99.7
[2023-06-19] MEDS: DEXT 5%/0.45% NACL 1000ML 1,000 ML IV SCH ×2 (04:40→22:39)
[2023-06-19 05:16] LABS: BASOPHILS % 0.6 % (0.0-2.0); EOSINOPHILS % 6.8 % (0.0-5.0); HEMATOCRIT. 37.2 % (42.0-52.0); HEMOGLOBIN. 11.7 g/dL (14.0-18.0); LYMPHOCYTES % 13.4 % (20.0-50.0); MEAN CORPUSCULAR HGB CONC 31.3 g/dL (31.0-37.0); MEAN CORPUSCULAR VOLUME 89.5 fL (80.0-94.0); MEAN PLATELET VOLUME 9.3 fl (7.4-10.4); MONOCYTES % 12.1 % (2.0-8.0); NEUTROPHILS % 67.1 % (40.0-76.0); PLATELET 188 x1000/uL (130-400); RED BLOOD CELL COUNT 4.16 mill/uL (4.7-6.1); RED CELL DISTRIBUTION WIDTH 17.6 % (11.6-14.6); WHITE BLOOD COUNT 6.8 x1000/uL (4.5-11.0)
[2023-06-19 05:37] LABS: CALCIUM 9.1 mg/dL (8.7-10.4); CARBON DIOXIDE 24 mEq/L (21-32); CHLORIDE 110 mEq/L (98-107); CREATININE 0.9 mg/dL (0.6-1.3); GLUCOSE 92 mg/dL (70-105); POTASSIUM 3.4 mEq/L (3.5-5.1); SODIUM 139 mEq/L (136-145); UREA NITROGEN BLOOD 14 mg/dL (9-23)
[2023-06-19] MEDS: BLOOD SUGAR DIAGNOSTIC STRIP TEST SCH ×4 (06:13→21:03)
[2023-06-19] MEDS: MIDAZOLAM HCL 100 MG in SODIUM CHLORIDE 0.9% 100 ML IV PRN (06:13)
[2023-06-19] MEDS: INSULIN LISPRO 100 UNITS/ML SUBCUT SCH ×4 (06:28→21:00)
[2023-06-19] MEDS ORDERED: POTASSIUM CHLORIDE INJ 40 MEQ in DEXT 5% WATER 250 ML IV ONE (08:45)
[2023-06-19] MEDS: FUROSEMIDE 20MG/2ML VIAL IV SCH (09:33)
[2023-06-19] MEDS: PANTOPRAZOLE SODIUM 40 MG/VIAL IV SCH (09:33)
[2023-06-19] MEDS: ASPIRIN 81MG EC TABLET PO SCH (09:34)
[2023-06-19] MEDS: MIDODRINE HCL 5MG TABLET PO SCH ×3 (09:35→17:27)
[2023-06-19] MEDS: KCL 20MEQ/100ML X 2 FOR TOTAL KCL 40MEQ/200ML IV SCH ×2 (09:40→12:54)
[2023-06-19] MEDS: ENOXAPARIN 120MG/0.8ML SYR SUBCUT SCH ×2 (09:41→21:08)
[2023-06-19 09:51] LABS: BG BASE EXCESS -1.6 mmol/L (-2.0-2.0); BG CARBOXYHEMOGLOBIN 0.5 % (0.5-1.5); BG DEOXYHEMOGLOBIN 1.3 % (0.0-5.0); BG FRACTION INSPIRED OXYGEN 40; BG HCO3 ACT 22.7 mmol/L (22.0-26.0); BG METHEMOGLOBIN 0.4 % (0.0-1.5); BG OXYGEN SATURATION 98.7 % (92.0-98.5); BG OXYHEMOGLOBIN 97.8 % (94.0-97.0); BG PH 7.406 (7.350-7.450); BG PO2 137.1 mmHg (75.0-100.0); BG SAMPLE SITE RIGHT RADIAL; BG TOTAL HEMOGLOBIN 12.4 g/dL (12.0-18.0); BG VENT MODE VENT - AC
[2023-06-19] MEDS: PHENYLEPHRINE 100 MG in DEXT 5% WATER 240 ML IV PRN (12:58)
[2023-06-19 15:25] LABS: BG BASE EXCESS -2.8 mmol/L (-2.0-2.0); BG CARBOXYHEMOGLOBIN 0.1 % (0.5-1.5); BG DEOXYHEMOGLOBIN 1.2 % (0.0-5.0); BG FRACTION INSPIRED OXYGEN 40; BG HCO3 ACT 20.5 mmol/L (22.0-26.0); BG METHEMOGLOBIN 0.2 % (0.0-1.5); BG OXYGEN SATURATION 98.8 % (92.0-98.5); BG OXYHEMOGLOBIN 98.5 % (94.0-97.0); BG PCO2 31.5 mmHg (35.0-45.0); BG PH 7.432 (7.350-7.450); BG PO2 143.2 mmHg (75.0-100.0); BG SAMPLE SITE RIGHT RADIAL; BG TOTAL HEMOGLOBIN 12.8 g/dL (12.0-18.0); BG VENT MODE VENT - CPAP
[2023-06-20] VITALS (83 sets, daily range): BP systolic 96–147; BP diastolic 32–109; PULSE 90–125; RESP 11–27; TEMP 98.1–101.8
[2023-06-20 04:27] LABS: BASOPHILS % 0.2 % (0.0-2.0); EOSINOPHILS % 3.5 % (0.0-5.0); HEMOGLOBIN. 11.3 g/dL (14.0-18.0); MEAN CORPUSCULAR HEMOGLOBIN 28.8 pg (28.0-32.0); MEAN CORPUSCULAR HGB CONC 33.2 g/dL (31.0-37.0); MEAN CORPUSCULAR VOLUME 86.7 fL (80.0-94.0); MEAN PLATELET VOLUME 8.8 fl (7.4-10.4); MONOCYTES % 10.4 % (2.0-8.0); NEUTROPHILS % 75.9 % (40.0-76.0); PLATELET 197 x1000/uL (130-400); RED BLOOD CELL COUNT 3.91 mill/uL (4.7-6.1); RED CELL DISTRIBUTION WIDTH 17.6 % (11.6-14.6); WHITE BLOOD COUNT 7.7 x1000/uL (4.5-11.0)
[2023-06-20 04:45] LABS: CALCIUM 9.2 mg/dL (8.7-10.4); CARBON DIOXIDE 23 mEq/L (21-32); CHLORIDE 107 mEq/L (98-107); CREATININE 0.9 mg/dL (0.6-1.3); GLUCOSE 103 mg/dL (70-105); POTASSIUM 3.5 mEq/L (3.5-5.1); SODIUM 139 mEq/L (136-145); UREA NITROGEN BLOOD 16 mg/dL (9-23)
[2023-06-20] MEDS: INSULIN LISPRO 100 UNITS/ML SUBCUT SCH ×4 (07:00→21:00)
[2023-06-20] MEDS: BLOOD SUGAR DIAGNOSTIC STRIP TEST SCH ×4 (07:04→21:29)
[2023-06-20] MEDS: FENTANYL CITRATE/PF 2,500 MCG in SODIUM CHLORIDE 0.9% 200 ML IV PRN (07:04)
[2023-06-20] MEDS: FUROSEMIDE 20MG/2ML VIAL IV SCH (08:11)
[2023-06-20] MEDS: ASPIRIN 81MG EC TABLET PO SCH (08:11)
[2023-06-20] MEDS: PANTOPRAZOLE SODIUM 40 MG/VIAL IV SCH (08:11)
[2023-06-20] MEDS: ENOXAPARIN 120MG/0.8ML SYR SUBCUT SCH ×2 (08:11→21:32)
[2023-06-20] MEDS: MIDODRINE HCL 5MG TABLET PO SCH ×3 (08:12→17:09)
[2023-06-20 09:08] LABS: BG BASE EXCESS -3.3 mmol/L (-2.0-2.0); BG DEOXYHEMOGLOBIN 4.1 % (0.0-5.0); BG FRACTION INSPIRED OXYGEN 40; BG METHEMOGLOBIN 0.1 % (0.0-1.5); BG OXYGEN SATURATION 95.9 % (92.0-98.5); BG OXYHEMOGLOBIN 95.8 % (94.0-97.0); BG PCO2 35.3 mmHg (35.0-45.0); BG PH 7.392 (7.350-7.450); BG PO2 82.3 mmHg (75.0-100.0); BG SAMPLE SITE LEFT RADIAL; BG TOTAL HEMOGLOBIN 12.6 g/dL (12.0-18.0); BG TOTAL RESPIRATORY RATE 24 b/min; BG VENT MODE VENT - AC
[2023-06-20 11:45] LABS: BG BASE EXCESS 0.4 mmol/L (-2.0-2.0); BG CARBOXYHEMOGLOBIN 0.4 % (0.5-1.5); BG DEOXYHEMOGLOBIN 4.3 % (0.0-5.0); BG FRACTION INSPIRED OXYGEN 40; BG HCO3 ACT 23.7 mmol/L (22.0-26.0); BG METHEMOGLOBIN 0.2 % (0.0-1.5); BG OXYGEN SATURATION 95.7 % (92.0-98.5); BG OXYHEMOGLOBIN 95.1 % (94.0-97.0); BG PCO2 33.9 mmHg (35.0-45.0); BG PH 7.462 (7.350-7.450); BG PO2 78.2 mmHg (75.0-100.0); BG SAMPLE SITE RIGHT RADIAL; BG TOTAL HEMOGLOBIN 12.9 g/dL (12.0-18.0); BG VENT MODE VENT - CPAP/PS
[2023-06-20] MEDS ORDERED: ACETAMINOPHEN 325MG TABLET PO PRN (14:15)
[2023-06-20] MEDS: CEFEPIME 1,000 MG in DEXTROSE 5% WATER 50 ML IV SCH (15:15)
[2023-06-20 16:08] LABS: CLARITY URINE CLOUDY (CLEAR); COLOR URINE DARK YELLOW (YELLOW); GLUCOSE URINE NEGATIVE (NEGATIVE); KETONES URINE NEGATIVE (NEGATIVE); LEUKOCYTE ESTERASE URINE NEGATIVE (NEGATIVE); NITRITE URINE NEGATIVE (NEGATIVE); OCCULT BLOOD URINE 3+ (NEGATIVE); PH URINE 5.5 (4.5-8.0); PROTEIN URINE 2+ (NEGATIVE); SPECIFIC GRAVITY URINE 1.022 (1.005-1.030); UROBILINOGEN URINE 0.2 E.U./dL (0.2-1.0)
[2023-06-20] MEDS: VANCOMYCIN 1.25GM PMX (XELLIA) 250 ML IV SCH ×2 (16:28→21:32)
[2023-06-20 16:36] LABS: BACTERIA URINE 2+
[2023-06-20 16:37] LABS: HYALINE CASTS URINE 0-5 /lpf; RBC URINE TNTC /hpf (0-2); SQUAMOUS EPITHELIAL CELL URINE FEW /lpf (RARE/1+); WBC URINE 0-2 /hpf (0-2)
[2023-06-20 17:10] LABS: BG BASE EXCESS -2.7 mmol/L (-2.0-2.0); BG CARBOXYHEMOGLOBIN 0.3 % (0.5-1.5); BG DEOXYHEMOGLOBIN 1.3 % (0.0-5.0); BG FRACTION INSPIRED OXYGEN 40; BG HCO3 ACT 21.9 mmol/L (22.0-26.0); BG METHEMOGLOBIN 0.3 % (0.0-1.5); BG OXYGEN SATURATION 98.7 % (92.0-98.5); BG OXYHEMOGLOBIN 98.1 % (94.0-97.0); BG PCO2 37.6 mmHg (35.0-45.0); BG PH 7.384 (7.350-7.450); BG PO2 136.2 mmHg (75.0-100.0); BG SAMPLE SITE RIGHT RADIAL; BG TOTAL HEMOGLOBIN 12.3 g/dL (12.0-18.0); BG VENT MODE COOL AEROSOL
[2023-06-21] VITALS (32 sets, daily range): BP systolic 91–125; BP diastolic 55–93; PULSE 97–113; RESP 17–25; TEMP 97.6–98.7
[2023-06-21] MEDS: CEFEPIME 1,000 MG in DEXTROSE 5% WATER 50 ML IV SCH (03:47)
[2023-06-21 06:19] LABS: BASOPHILS % 0.2 % (0.0-2.0); EOSINOPHILS % 2.8 % (0.0-5.0); HEMATOCRIT. 34.1 % (42.0-52.0); HEMOGLOBIN. 10.8 g/dL (14.0-18.0); LYMPHOCYTES % 11.5 % (20.0-50.0); MEAN CORPUSCULAR HEMOGLOBIN 28.4 pg (28.0-32.0); MEAN CORPUSCULAR HGB CONC 31.5 g/dL (31.0-37.0); MEAN CORPUSCULAR VOLUME 90.2 fL (80.0-94.0); MEAN PLATELET VOLUME 9.2 fl (7.4-10.4); MONOCYTES % 8.5 % (2.0-8.0); PLATELET 188 x1000/uL (130-400); RED BLOOD CELL COUNT 3.79 mill/uL (4.7-6.1); RED CELL DISTRIBUTION WIDTH 17.3 % (11.6-14.6); WHITE BLOOD COUNT 5.7 x1000/uL (4.5-11.0)
[2023-06-21 06:24] LABS: CARBON DIOXIDE 22 mEq/L (21-32); CHLORIDE 109 mEq/L (98-107); POTASSIUM 3.6 mEq/L (3.5-5.1); SODIUM 141 mEq/L (136-145)
[2023-06-21 06:25] LABS: CALCIUM 9.1 mg/dL (8.7-10.4); CREATINE KINASE 62 IU/L (46-171); CREATININE 0.9 mg/dL (0.6-1.3); GLUCOSE 99 mg/dL (70-105); UREA NITROGEN BLOOD 15 mg/dL (9-23)
[2023-06-21] MEDS: BLOOD SUGAR DIAGNOSTIC STRIP TEST SCH ×3 (06:38→21:52)
[2023-06-21] MEDS: INSULIN LISPRO 100 UNITS/ML SUBCUT SCH ×3 (06:39→21:00)
[2023-06-21] MEDS: VANCOMYCIN 1.25GM PMX (XELLIA) 250 ML IV SCH ×3 (06:43→21:57)
[2023-06-21] MEDS: ASPIRIN 81MG EC TABLET PO SCH (09:55)
[2023-06-21] MEDS: ENOXAPARIN 120MG/0.8ML SYR SUBCUT SCH (09:55)
[2023-06-21] MEDS: FUROSEMIDE 20MG/2ML VIAL IV SCH (09:55)
[2023-06-21] MEDS: PANTOPRAZOLE SODIUM 40 MG/VIAL IV SCH (09:56)
[2023-06-21] MEDS: MIDODRINE HCL 5MG TABLET PO SCH ×3 (09:56→16:25)
[2023-06-21] MEDS: CEFEPIME 2,000 MG in DEXT 5% WATER 100 ML IV SCH ×2 (16:05→21:59)
[2023-06-21] MEDS ORDERED: ENOXAPARIN 150MG/ML SYR SUBCUT SCH (21:00)
[2023-06-22] VITALS (11 sets, daily range): BP systolic 111–135; BP diastolic 63–97; PULSE 99–110; RESP 15–24; TEMP 97.3–98.5
[2023-06-22 00:41] LABS: HEMOGLOBIN 10.3 g/dL (14.0-18.0); MEAN CORPUSCULAR HEMOGLOBIN 28.6 pg (28.0-32.0); MEAN CORPUSCULAR HGB CONC 32.2 g/dL (31.0-37.0); MEAN CORPUSCULAR VOLUME 88.9 fL (80.0-94.0); PLATELET 215 x1000/uL (130-400); RED CELL DISTRIBUTION WIDTH 17.1 % (11.6-14.6); WHITE BLOOD COUNT 6.5 x1000/uL (4.5-11.0)
[2023-06-22 01:46] LABS: PARTIAL THROMBOPLASTIN TIME 35.3 sec (23.4-31.0); PROTHROMBIN TIME 11.2 sec (9.6-11.0)
[2023-06-22] MEDS: CEFEPIME 2,000 MG in DEXT 5% WATER 100 ML IV SCH ×3 (05:58→21:30)
[2023-06-22] MEDS: VANCOMYCIN 1.25GM PMX (XELLIA) 250 ML IV SCH ×2 (05:59→18:17)
[2023-06-22] MEDS: BLOOD SUGAR DIAGNOSTIC STRIP TEST SCH ×4 (06:06→21:30)
[2023-06-22] MEDS: INSULIN LISPRO 100 UNITS/ML SUBCUT SCH ×4 (06:07→21:00)
[2023-06-22 06:45] LABS: CALCIUM 9.5 mg/dL (8.7-10.4); CARBON DIOXIDE 22 mEq/L (21-32); CHLORIDE 107 mEq/L (98-107); GLUCOSE 85 mg/dL (70-105); POTASSIUM 3.8 mEq/L (3.5-5.1); SODIUM 139 mEq/L (136-145); UREA NITROGEN BLOOD 20 mg/dL (9-23)
[2023-06-22 06:55] LABS: BASOPHILS % 0.2 % (0.0-2.0); EOSINOPHILS % 2.5 % (0.0-5.0); HEMATOCRIT. 35.9 % (42.0-52.0); HEMOGLOBIN. 11.5 g/dL (14.0-18.0); LYMPHOCYTES % 12.9 % (20.0-50.0); MEAN CORPUSCULAR HEMOGLOBIN 28.4 pg (28.0-32.0); MEAN CORPUSCULAR VOLUME 88.7 fL (80.0-94.0); MEAN PLATELET VOLUME 8.8 fl (7.4-10.4); MONOCYTES % 8.8 % (2.0-8.0); NEUTROPHILS % 75.6 % (40.0-76.0); PLATELET 206 x1000/uL (130-400); RED BLOOD CELL COUNT 4.05 mill/uL (4.7-6.1); RED CELL DISTRIBUTION WIDTH 16.8 % (11.6-14.6); WHITE BLOOD COUNT 4.6 x1000/uL (4.5-11.0)
[2023-06-22] MEDS: MIDODRINE HCL 5MG TABLET PO SCH ×3 (09:00→17:00)
[2023-06-22] MEDS: PANTOPRAZOLE SODIUM 40 MG/VIAL IV SCH (12:43)
[2023-06-22] MEDS: FUROSEMIDE 20MG/2ML VIAL IV SCH (12:43)
[2023-06-23] VITALS (12 sets, daily range): BP systolic 95–150; BP diastolic 60–92; PULSE 96–116; RESP 18–25; TEMP 97.2–97.9
[2023-06-23] MEDS ORDERED: VANCOMYCIN 1.25GM PMX (XELLIA) 250 ML IV SCH
[2023-06-23] MEDS: CEFEPIME 2,000 MG in DEXT 5% WATER 100 ML IV SCH ×3 (05:38→20:35)
[2023-06-23] MEDS: BLOOD SUGAR DIAGNOSTIC STRIP TEST SCH ×4 (07:30→20:35)
[2023-06-23 07:39] LABS: BASOPHILS % 0.3 % (0.0-2.0); EOSINOPHILS % 2.6 % (0.0-5.0); HEMATOCRIT. 30.9 % (42.0-52.0); HEMOGLOBIN. 10.2 g/dL (14.0-18.0); LYMPHOCYTES % 11.6 % (20.0-50.0); MEAN CORPUSCULAR HEMOGLOBIN 28.6 pg (28.0-32.0); MEAN CORPUSCULAR VOLUME 86.8 fL (80.0-94.0); MEAN PLATELET VOLUME 8.4 fl (7.4-10.4); MONOCYTES % 7.7 % (2.0-8.0); NEUTROPHILS % 77.8 % (40.0-76.0); PLATELET 239 x1000/uL (130-400); RED BLOOD CELL COUNT 3.55 mill/uL (4.7-6.1); RED CELL DISTRIBUTION WIDTH 16.3 % (11.6-14.6); WHITE BLOOD COUNT 5.2 x1000/uL (4.5-11.0)
[2023-06-23 07:56] LABS: CALCIUM 9.3 mg/dL (8.7-10.4); CARBON DIOXIDE 21 mEq/L (21-32); CHLORIDE 106 mEq/L (98-107); CREATININE 0.9 mg/dL (0.6-1.3); GLUCOSE 98 mg/dL (70-105); POTASSIUM 3.5 mEq/L (3.5-5.1); SODIUM 137 mEq/L (136-145); UREA NITROGEN BLOOD 21 mg/dL (9-23)
[2023-06-23] MEDS: INSULIN LISPRO 100 UNITS/ML SUBCUT SCH ×4 (08:00→20:56)
[2023-06-23] MEDS: MIDODRINE HCL 5MG TABLET PO SCH ×3 (09:00→18:58)
[2023-06-23] MEDS: FUROSEMIDE 20MG/2ML VIAL IV SCH (10:14)
[2023-06-23] MEDS: PANTOPRAZOLE SODIUM 40 MG/VIAL IV SCH (10:14)
[2023-06-24] VITALS (12 sets, daily range): BP systolic 100–130; BP diastolic 64–80; PULSE 82–100; RESP 14–23; TEMP 97.6–98.1
[2023-06-24] MEDS: CEFEPIME 2,000 MG in DEXT 5% WATER 100 ML IV SCH ×3 (05:30→21:17)
[2023-06-24] MEDS: INSULIN LISPRO 100 UNITS/ML SUBCUT SCH ×4 (07:44→20:10)
[2023-06-24] MEDS: BLOOD SUGAR DIAGNOSTIC STRIP TEST SCH ×4 (07:44→20:10)
[2023-06-24] MEDS: FUROSEMIDE 20MG/2ML VIAL IV SCH (08:27)
[2023-06-24] MEDS: PANTOPRAZOLE SODIUM 40 MG/VIAL IV SCH (08:27)
[2023-06-24] MEDS: MIDODRINE HCL 5MG TABLET PO SCH ×3 (08:27→16:43)
[2023-06-25] VITALS (12 sets, daily range): BP systolic 98–138; BP diastolic 61–92; PULSE 84–126; RESP 13–24; TEMP 97–98
[2023-06-25 00:10] LABS: BASOPHILS % 0.3 % (0.0-2.0); EOSINOPHILS % 3.1 % (0.0-5.0); HEMATOCRIT. 30.3 % (42.0-52.0); HEMOGLOBIN. 9.8 g/dL (14.0-18.0); LYMPHOCYTES % 13.7 % (20.0-50.0); MEAN CORPUSCULAR HEMOGLOBIN 28.3 pg (28.0-32.0); MEAN CORPUSCULAR HGB CONC 32.2 g/dL (31.0-37.0); MEAN CORPUSCULAR VOLUME 87.9 fL (80.0-94.0); MEAN PLATELET VOLUME 8.2 fl (7.4-10.4); MONOCYTES % 9.2 % (2.0-8.0); NEUTROPHILS % 73.7 % (40.0-76.0); PLATELET 266 x1000/uL (130-400); RED BLOOD CELL COUNT 3.45 mill/uL (4.7-6.1); RED CELL DISTRIBUTION WIDTH 16.1 % (11.6-14.6); WHITE BLOOD COUNT 7.1 x1000/uL (4.5-11.0)
[2023-06-25 00:28] LABS: ALANINE AMINOTRANSFERASE 26 IU/L (10-49); ALBUMIN 3.4 g/dL (3.2-4.8); ASPARTATE AMINOTRANSFERASE 30 IU/L (<34); BILIRUBIN TOTAL 0.4 mg/dL (0.1-1.0); CALCIUM 9.1 mg/dL (8.7-10.4); CARBON DIOXIDE 20 mEq/L (21-32); CHLORIDE 106 mEq/L (98-107); CREATININE 1.2 mg/dL (0.6-1.3); GLUCOSE 89 mg/dL (70-105); POTASSIUM 3.4 mEq/L (3.5-5.1); PROTEIN TOTAL 7.4 g/dL (6.0-8.3); SODIUM 136 mEq/L (136-145); UREA NITROGEN BLOOD 24 mg/dL (9-23)
[2023-06-25] MEDS: CEFEPIME 2,000 MG in DEXT 5% WATER 100 ML IV SCH ×3 (05:47→21:36)
[2023-06-25 06:36] LABS: BASOPHILS % 0.2 % (0.0-2.0); EOSINOPHILS % 3.2 % (0.0-5.0); HEMATOCRIT. 32.9 % (42.0-52.0); HEMOGLOBIN. 10.7 g/dL (14.0-18.0); LYMPHOCYTES % 14.4 % (20.0-50.0); MEAN CORPUSCULAR HEMOGLOBIN 28.3 pg (28.0-32.0); MEAN CORPUSCULAR HGB CONC 32.7 g/dL (31.0-37.0); MEAN CORPUSCULAR VOLUME 86.6 fL (80.0-94.0); MEAN PLATELET VOLUME 8.6 fl (7.4-10.4); MONOCYTES % 7.9 % (2.0-8.0); NEUTROPHILS % 74.3 % (40.0-76.0); PLATELET 269 x1000/uL (130-400); RED CELL DISTRIBUTION WIDTH 16.1 % (11.6-14.6); WHITE BLOOD COUNT 6.7 x1000/uL (4.5-11.0)
[2023-06-25 06:57] LABS: ALANINE AMINOTRANSFERASE 27 IU/L (10-49); ALBUMIN 3.8 g/dL (3.2-4.8); ASPARTATE AMINOTRANSFERASE 32 IU/L (<34); BILIRUBIN TOTAL 0.4 mg/dL (0.1-1.0); CALCIUM 9.6 mg/dL (8.7-10.4); CARBON DIOXIDE 21 mEq/L (21-32); CHLORIDE 105 mEq/L (98-107); CREATININE 1.3 mg/dL (0.6-1.3); GLUCOSE 80 mg/dL (70-105); POTASSIUM 3.4 mEq/L (3.5-5.1); PROTEIN TOTAL 7.3 g/dL (6.0-8.3); SODIUM 136 mEq/L (136-145); UREA NITROGEN BLOOD 21 mg/dL (9-23)
[2023-06-25] MEDS: INSULIN LISPRO 100 UNITS/ML SUBCUT SCH ×4 (08:00→21:00)
[2023-06-25] MEDS: BLOOD SUGAR DIAGNOSTIC STRIP TEST SCH ×4 (08:35→21:07)
[2023-06-25] MEDS: FUROSEMIDE 20MG/2ML VIAL IV SCH (09:09)
[2023-06-25] MEDS: PANTOPRAZOLE SODIUM 40 MG/VIAL IV SCH (09:09)
[2023-06-25] MEDS: MIDODRINE HCL 5MG TABLET PO SCH ×3 (09:09→17:00)
[2023-06-25] MEDS ORDERED: POTASSIUM CHLORIDE 20MEQ TABLET SR PO NR (17:00)
[2023-06-25] MEDS: ENOXAPARIN 80MG/0.8ML SYR SUBCUT SCH (21:34)
[2023-06-26] VITALS (12 sets, daily range): BP systolic 91–139; BP diastolic 60–90; PULSE 86–109; RESP 12–24; TEMP 96.9–97.9
[2023-06-26] MEDS: INSULIN LISPRO 100 UNITS/ML SUBCUT SCH ×4 (08:00→20:30)
[2023-06-26] MEDS: BLOOD SUGAR DIAGNOSTIC STRIP TEST SCH ×4 (08:21→20:19)
[2023-06-26] MEDS: PANTOPRAZOLE SODIUM 40 MG/VIAL IV SCH (09:04)
[2023-06-26] MEDS: FUROSEMIDE 20MG/2ML VIAL IV SCH (09:04)
[2023-06-26] MEDS: ENOXAPARIN 80MG/0.8ML SYR SUBCUT SCH ×2 (09:05→20:20)
[2023-06-26] MEDS: MIDODRINE HCL 5MG TABLET PO SCH ×3 (09:05→17:00)
[2023-06-26] MEDS: CEFEPIME 1,000 MG in DEXTROSE 5% WATER 50 ML IV SCH (14:37)
[2023-06-27] VITALS (12 sets, daily range): BP systolic 95–123; BP diastolic 62–79; PULSE 94–128; RESP 15–31; TEMP 97–98.8
[2023-06-27] MEDS: CEFEPIME 1,000 MG in DEXTROSE 5% WATER 50 ML IV SCH (01:47)
[2023-06-27] MEDS: BLOOD SUGAR DIAGNOSTIC STRIP TEST SCH ×4 (07:30→21:43)
[2023-06-27 07:38] LABS: ALANINE AMINOTRANSFERASE 22 IU/L (10-49); ALBUMIN 3.6 g/dL (3.2-4.8); ASPARTATE AMINOTRANSFERASE 24 IU/L (<34); BILIRUBIN TOTAL 0.4 mg/dL (0.1-1.0); CALCIUM 9.3 mg/dL (8.7-10.4); CARBON DIOXIDE 20 mEq/L (21-32); CHLORIDE 104 mEq/L (98-107); CREATININE 1.5 mg/dL (0.6-1.3); GLUCOSE 85 mg/dL (70-105); POTASSIUM 3.7 mEq/L (3.5-5.1); PROTEIN TOTAL 7.7 g/dL (6.0-8.3); SODIUM 135 mEq/L (136-145); UREA NITROGEN BLOOD 21 mg/dL (9-23)
[2023-06-27] MEDS: INSULIN LISPRO 100 UNITS/ML SUBCUT SCH ×4 (08:00→21:00)
[2023-06-27] MEDS: ENOXAPARIN 80MG/0.8ML SYR SUBCUT SCH ×2 (08:17→21:44)
[2023-06-27] MEDS: PANTOPRAZOLE SODIUM 40 MG/VIAL IV SCH (08:17)
[2023-06-27] MEDS: MIDODRINE HCL 5MG TABLET PO SCH ×3 (08:18→17:00)
[2023-06-27] MEDS: FUROSEMIDE 20MG/2ML VIAL IV SCH ×2 (08:18→08:30)
[2023-06-27] MEDS: CEFEPIME 2,000 MG in DEXT 5% WATER 100 ML IV SCH ×2 (14:25→21:44)
[2023-06-27] MEDS: CARVEDILOL 3.125 MG TABLET PO SCH (21:00)
[2023-06-28] VITALS (12 sets, daily range): BP systolic 92–121; BP diastolic 57–86; PULSE 87–128; RESP 15–24; TEMP 97.2–98
[2023-06-28] MEDS: CEFEPIME 2,000 MG in DEXT 5% WATER 100 ML IV SCH ×2 (06:12→14:19)
[2023-06-28 06:20] LABS: HEMATOCRIT. 32.5 % (42.0-52.0); HEMOGLOBIN. 10.7 g/dL (14.0-18.0); MEAN CORPUSCULAR HEMOGLOBIN 28.9 pg (28.0-32.0); MEAN CORPUSCULAR VOLUME 87.4 fL (80.0-94.0); MEAN PLATELET VOLUME 8.8 fl (7.4-10.4); PLATELET 225 x1000/uL (130-400); RED BLOOD CELL COUNT 3.72 mill/uL (4.7-6.1); WHITE BLOOD COUNT 3.5 x1000/uL (4.5-11.0)
[2023-06-28 06:57] LABS: DIFFERENTIAL COMMENT 1
[2023-06-28] MEDS: BLOOD SUGAR DIAGNOSTIC STRIP TEST SCH ×3 (07:30→17:22)
[2023-06-28] MEDS: INSULIN LISPRO 100 UNITS/ML SUBCUT SCH ×4 (08:00→21:00)
[2023-06-28 09:14] LABS: CALCIUM 9.6 mg/dL (8.7-10.4); CARBON DIOXIDE 16 mEq/L (21-32); CHLORIDE 105 mEq/L (98-107); CREATININE 1.8 mg/dL (0.6-1.3); GLUCOSE 74 mg/dL (70-105); POTASSIUM 3.8 mEq/L (3.5-5.1); SODIUM 135 mEq/L (136-145); UREA NITROGEN BLOOD 18 mg/dL (9-23)
[2023-06-28] MEDS: PANTOPRAZOLE SODIUM 40 MG/VIAL IV SCH (09:58)
[2023-06-28] MEDS: FUROSEMIDE 20MG/2ML VIAL IV SCH (09:59)
[2023-06-28] MEDS: ENOXAPARIN 80MG/0.8ML SYR SUBCUT SCH ×2 (09:59→21:24)
[2023-06-28] MEDS: CARVEDILOL 3.125 MG TABLET PO SCH ×2 (10:02→21:24)
[2023-06-28] MEDS: MIDODRINE HCL 5MG TABLET PO SCH ×3 (10:03→17:22)
[2023-06-28] MEDS: SODIUM CHLORIDE 0.9% 1,000 ML IV SCH (17:26)
[2023-06-28 22:27] LABS: PLATELET ESTIMATE NORMAL
[2023-06-29] VITALS (12 sets, daily range): BP systolic 102–125; BP diastolic 53–85; PULSE 80–121; RESP 13–23; TEMP 97.2–98.1
[2023-06-29 06:32] LABS: CALCIUM 9.8 mg/dL (8.7-10.4); POTASSIUM 3.8 mEq/L (3.5-5.1)
[2023-06-29 06:52] LABS: HEMATOCRIT. 35.6 % (42.0-52.0); HEMOGLOBIN. 11.7 g/dL (14.0-18.0); MEAN CORPUSCULAR HGB CONC 32.9 g/dL (31.0-37.0); MEAN PLATELET VOLUME 9.2 fl (7.4-10.4); PLATELET 224 x1000/uL (130-400); RED BLOOD CELL COUNT 4.05 mill/uL (4.7-6.1); RED CELL DISTRIBUTION WIDTH 16.3 % (11.6-14.6); WHITE BLOOD COUNT 5.4 x1000/uL (4.5-11.0)
[2023-06-29 07:01] LABS: DIFFERENTIAL COMMENT 1
[2023-06-29] MEDS: BLOOD SUGAR DIAGNOSTIC STRIP TEST SCH ×4 (07:30→21:00)
[2023-06-29] MEDS: INSULIN LISPRO 100 UNITS/ML SUBCUT SCH ×4 (08:00→21:00)
[2023-06-29] MEDS: PANTOPRAZOLE SODIUM 40 MG/VIAL IV SCH (09:42)
[2023-06-29] MEDS: FUROSEMIDE 20MG/2ML VIAL IV SCH (09:42)
[2023-06-29] MEDS: CARVEDILOL 3.125 MG TABLET PO SCH (09:43)
[2023-06-29] MEDS: MIDODRINE HCL 5MG TABLET PO SCH ×3 (09:43→19:19)
[2023-06-29] MEDS: ENOXAPARIN 80MG/0.8ML SYR SUBCUT SCH ×2 (10:42→21:45)
[2023-06-29] MEDS: SODIUM CHLORIDE 0.9% 1,000 ML IV SCH (11:30)
[2023-06-29 13:36] LABS: ANISOCYTOSIS 1+; PLATELET ESTIMATE NORMAL
[2023-06-29] MEDS: CARVEDILOL 6.25 MG TABLET PO SCH (21:46)
[2023-06-30] VITALS (11 sets, daily range): BP systolic 95–137; BP diastolic 52–86; PULSE 72–95; RESP 15–18; TEMP 96.9–97.7
[2023-06-30] MEDS: SODIUM CHLORIDE 0.9% 1,000 ML IV SCH (07:30)
[2023-06-30] MEDS: BLOOD SUGAR DIAGNOSTIC STRIP TEST SCH ×4 (07:30→21:00)
[2023-06-30] MEDS: INSULIN LISPRO 100 UNITS/ML SUBCUT SCH ×4 (08:00→21:00)
[2023-06-30] MEDS: ENOXAPARIN 80MG/0.8ML SYR SUBCUT SCH ×2 (09:44→21:00)
[2023-06-30] MEDS: FUROSEMIDE 20MG/2ML VIAL IV SCH (09:44)
[2023-06-30] MEDS: PANTOPRAZOLE SODIUM 40 MG/VIAL IV SCH (09:44)
[2023-06-30] MEDS: CARVEDILOL 6.25 MG TABLET PO SCH ×2 (09:45→21:00)
[2023-06-30 09:46] LABS: HEMOGLOBIN. 10.8 g/dL (14.0-18.0); MEAN CORPUSCULAR HEMOGLOBIN 27.9 pg (28.0-32.0); MEAN CORPUSCULAR HGB CONC 31.8 g/dL (31.0-37.0); MEAN CORPUSCULAR VOLUME 87.6 fL (80.0-94.0); MEAN PLATELET VOLUME 8.5 fl (7.4-10.4); PLATELET 163 x1000/uL (130-400); RED BLOOD CELL COUNT 3.88 mill/uL (4.7-6.1); RED CELL DISTRIBUTION WIDTH 16.1 % (11.6-14.6); WHITE BLOOD COUNT 3.3 x1000/uL (4.5-11.0)
[2023-06-30] MEDS: MIDODRINE HCL 5MG TABLET PO SCH ×3 (09:46→18:44)
[2023-06-30 09:56] LABS: DIFFERENTIAL COMMENT 1
[2023-06-30 10:16] LABS: CALCIUM 9.3 mg/dL (8.7-10.4); CREATININE 2.2 mg/dL (0.6-1.3); POTASSIUM 3.5 mEq/L (3.5-5.1)
[2023-06-30 20:32] LABS: PLATELET ESTIMATE NORMAL
[2023-07-01] VITALS (10 sets, daily range): BP systolic 94–143; BP diastolic 66–80; PULSE 67–94; RESP 18; TEMP 97–97.8
[2023-07-01] MEDS: SODIUM CHLORIDE 0.9% 1,000 ML IV SCH ×2 (03:30→23:30)
[2023-07-01 06:28] LABS: HEMATOCRIT. 32.1 % (42.0-52.0); HEMOGLOBIN. 10.5 g/dL (14.0-18.0); MEAN CORPUSCULAR HEMOGLOBIN 28.1 pg (28.0-32.0); MEAN CORPUSCULAR HGB CONC 32.6 g/dL (31.0-37.0); MEAN CORPUSCULAR VOLUME 86.3 fL (80.0-94.0); MEAN PLATELET VOLUME 9.2 fl (7.4-10.4); PLATELET 166 x1000/uL (130-400); RED BLOOD CELL COUNT 3.72 mill/uL (4.7-6.1); RED CELL DISTRIBUTION WIDTH 16.2 % (11.6-14.6); WHITE BLOOD COUNT 4.5 x1000/uL (4.5-11.0)
[2023-07-01 06:30] LABS: ALANINE AMINOTRANSFERASE 18 IU/L (10-49); ALBUMIN 3.7 g/dL (3.2-4.8); ASPARTATE AMINOTRANSFERASE 27 IU/L (<34); BILIRUBIN TOTAL 0.4 mg/dL (0.1-1.0); CALCIUM 9.4 mg/dL (8.7-10.4); CARBON DIOXIDE 25 mEq/L (21-32); CHLORIDE 102 mEq/L (98-107); CREATININE 2.5 mg/dL (0.6-1.3); GLUCOSE 77 mg/dL (70-105); PHOSPHORUS 3.7 mg/dL (2.5-4.9); POTASSIUM 3.5 mEq/L (3.5-5.1); PROTEIN TOTAL 7.2 g/dL (6.0-8.3); SODIUM 135 mEq/L (136-145); UREA NITROGEN BLOOD 19 mg/dL (9-23)
[2023-07-01 06:36] LABS: DIFFERENTIAL COMMENT 1
[2023-07-01] MEDS: BLOOD SUGAR DIAGNOSTIC STRIP TEST SCH ×4 (07:30→21:00)
[2023-07-01] MEDS: INSULIN LISPRO 100 UNITS/ML SUBCUT SCH ×4 (08:00→21:00)
[2023-07-01] MEDS: CARVEDILOL 6.25 MG TABLET PO SCH ×2 (08:34→22:15)
[2023-07-01] MEDS: ENOXAPARIN 80MG/0.8ML SYR SUBCUT SCH ×2 (08:35→22:14)
[2023-07-01] MEDS: PANTOPRAZOLE SODIUM 40 MG/VIAL IV SCH (08:35)
[2023-07-01] MEDS: MIDODRINE HCL 5MG TABLET PO SCH ×3 (08:35→18:56)
[2023-07-01 10:18] LABS: BG CARBOXYHEMOGLOBIN 0.3 % (0.5-1.5); BG DEOXYHEMOGLOBIN 1.1 % (0.0-5.0); BG FRACTION INSPIRED OXYGEN 36; BG HCO3 ACT 22.9 mmol/L (22.0-26.0); BG METHEMOGLOBIN 0.1 % (0.0-1.5); BG OXYGEN SATURATION 98.9 % (92.0-98.5); BG OXYHEMOGLOBIN 98.5 % (94.0-97.0); BG PCO2 44.7 mmHg (35.0-45.0); BG PH 7.328 (7.350-7.450); BG PO2 147.8 mmHg (75.0-100.0); BG SAMPLE SITE RIGHT RADIAL; BG VENT MODE NASAL CANNULA
[2023-07-01 14:16] LABS: PLATELET ESTIMATE NORMAL
[2023-07-02] VITALS (12 sets, daily range): BP systolic 97–135; BP diastolic 60–88; PULSE 74–104; RESP 16–18; TEMP 97–97.6
[2023-07-02] MEDS: BLOOD SUGAR DIAGNOSTIC STRIP TEST SCH ×4 (07:59→21:34)
[2023-07-02] MEDS: INSULIN LISPRO 100 UNITS/ML SUBCUT SCH ×4 (08:00→21:00)
[2023-07-02] MEDS: CARVEDILOL 6.25 MG TABLET PO SCH ×2 (09:00→21:47)
[2023-07-02] MEDS: PANTOPRAZOLE SODIUM 40 MG/VIAL IV SCH (09:13)
[2023-07-02] MEDS: ENOXAPARIN 80MG/0.8ML SYR SUBCUT SCH ×2 (09:13→21:46)
[2023-07-02] MEDS: MIDODRINE HCL 5MG TABLET PO SCH ×3 (09:14→17:00)
[2023-07-02 11:33] LABS: BASOPHILS % 0.4 % (0.0-2.0); EOSINOPHILS % 5.8 % (0.0-5.0); HEMATOCRIT. 32.7 % (42.0-52.0); HEMOGLOBIN. 10.5 g/dL (14.0-18.0); LYMPHOCYTES % 25.1 % (20.0-50.0); MEAN CORPUSCULAR HEMOGLOBIN 27.9 pg (28.0-32.0); MEAN CORPUSCULAR VOLUME 87.2 fL (80.0-94.0); MEAN PLATELET VOLUME 8.9 fl (7.4-10.4); MONOCYTES % 11.8 % (2.0-8.0); NEUTROPHILS % 56.9 % (40.0-76.0); PLATELET 164 x1000/uL (130-400); RED BLOOD CELL COUNT 3.75 mill/uL (4.7-6.1); RED CELL DISTRIBUTION WIDTH 15.9 % (11.6-14.6); WHITE BLOOD COUNT 4.5 x1000/uL (4.5-11.0)
[2023-07-02 11:58] LABS: CALCIUM 9.2 mg/dL (8.7-10.4); POTASSIUM 3.6 mEq/L (3.5-5.1)
[2023-07-02] MEDS: SODIUM CHLORIDE 0.9% 1,000 ML IV SCH (19:30)
[2023-07-03] VITALS (12 sets, daily range): BP systolic 96–131; BP diastolic 46–80; PULSE 71–95; RESP 14–18; TEMP 97.1–97.8
[2023-07-03 07:48] LABS: BASOPHILS % 0.5 % (0.0-2.0); EOSINOPHILS % 5.8 % (0.0-5.0); HEMATOCRIT. 33.1 % (42.0-52.0); HEMOGLOBIN. 10.9 g/dL (14.0-18.0); LYMPHOCYTES % 21.1 % (20.0-50.0); MEAN CORPUSCULAR HEMOGLOBIN 28.2 pg (28.0-32.0); MEAN CORPUSCULAR HGB CONC 32.9 g/dL (31.0-37.0); MEAN CORPUSCULAR VOLUME 85.9 fL (80.0-94.0); MEAN PLATELET VOLUME 9.2 fl (7.4-10.4); MONOCYTES % 9.6 % (2.0-8.0); PLATELET 169 x1000/uL (130-400); RED BLOOD CELL COUNT 3.85 mill/uL (4.7-6.1); WHITE BLOOD COUNT 4.6 x1000/uL (4.5-11.0)
[2023-07-03] MEDS: INSULIN LISPRO 100 UNITS/ML SUBCUT SCH ×4 (08:00→21:00)
[2023-07-03 08:01] LABS: CALCIUM 9.5 mg/dL (8.7-10.4); CARBON DIOXIDE 27 mEq/L (21-32); CHLORIDE 103 mEq/L (98-107); CREATININE 3.1 mg/dL (0.6-1.3); GLUCOSE 99 mg/dL (70-105); PHOSPHORUS 3.4 mg/dL (2.5-4.9); POTASSIUM 3.6 mEq/L (3.5-5.1); SODIUM 137 mEq/L (136-145); UREA NITROGEN BLOOD 20 mg/dL (9-23)
[2023-07-03] MEDS: BLOOD SUGAR DIAGNOSTIC STRIP TEST SCH ×4 (08:02→21:00)
[2023-07-03] MEDS: ENOXAPARIN 80MG/0.8ML SYR SUBCUT SCH ×2 (09:46→22:29)
[2023-07-03] MEDS: CARVEDILOL 6.25 MG TABLET PO SCH ×2 (09:47→22:29)
[2023-07-03] MEDS: PANTOPRAZOLE SODIUM 40 MG/VIAL IV SCH (09:49)
[2023-07-03] MEDS: MIDODRINE HCL 5MG TABLET PO SCH ×3 (09:49→16:50)
[2023-07-03] MEDS: SODIUM CHLORIDE 0.9% 1,000 ML IV SCH (15:30)
[2023-07-03] MEDS ORDERED: BENZONATATE 200MG CAPSULE PO PRN (22:00)
[2023-07-03] MEDS: GUAIFENESIN 600MG ER TABLET PO SCH (22:31)
[2023-07-04] VITALS (12 sets, daily range): BP systolic 91–139; BP diastolic 54–81; PULSE 78–105; RESP 14–26; TEMP 97.3–98.3
[2023-07-04 06:09] LABS: CALCIUM 9.1 mg/dL (8.7-10.4); CARBON DIOXIDE 27 mEq/L (21-32); CHLORIDE 104 mEq/L (98-107); CREATININE 3.5 mg/dL (0.6-1.3); GLUCOSE 96 mg/dL (70-105); POTASSIUM 3.6 mEq/L (3.5-5.1); SODIUM 139 mEq/L (136-145); UREA NITROGEN BLOOD 19 mg/dL (9-23)
[2023-07-04 06:10] LABS: BASOPHILS % 0.4 % (0.0-2.0); EOSINOPHILS % 5.2 % (0.0-5.0); HEMATOCRIT. 32.2 % (42.0-52.0); HEMOGLOBIN. 10.5 g/dL (14.0-18.0); LYMPHOCYTES % 25.5 % (20.0-50.0); MEAN CORPUSCULAR HEMOGLOBIN 28.2 pg (28.0-32.0); MEAN CORPUSCULAR HGB CONC 32.7 g/dL (31.0-37.0); MEAN CORPUSCULAR VOLUME 86.4 fL (80.0-94.0); MEAN PLATELET VOLUME 9.3 fl (7.4-10.4); MONOCYTES % 12.9 % (2.0-8.0); PLATELET 141 x1000/uL (130-400); RED BLOOD CELL COUNT 3.73 mill/uL (4.7-6.1); RED CELL DISTRIBUTION WIDTH 16.5 % (11.6-14.6); WHITE BLOOD COUNT 5.2 x1000/uL (4.5-11.0)
[2023-07-04] MEDS: BLOOD SUGAR DIAGNOSTIC STRIP TEST SCH ×4 (07:30→20:38)
[2023-07-04] MEDS: INSULIN LISPRO 100 UNITS/ML SUBCUT SCH ×4 (08:00→20:38)
[2023-07-04] MEDS: GUAIFENESIN 600MG ER TABLET PO SCH ×2 (08:14→20:37)
[2023-07-04] MEDS: CARVEDILOL 6.25 MG TABLET PO SCH ×2 (08:15→20:38)
[2023-07-04] MEDS: MIDODRINE HCL 5MG TABLET PO SCH ×3 (08:15→17:23)
[2023-07-04] MEDS: PANTOPRAZOLE SODIUM 40 MG/VIAL IV SCH (08:16)
[2023-07-04] MEDS: ENOXAPARIN 80MG/0.8ML SYR SUBCUT SCH ×2 (08:17→20:37)
[2023-07-04] MEDS ORDERED: FUROSEMIDE 40MG/4ML VIAL IVP NR (11:15)
[2023-07-04] MEDS: BENZONATATE 200MG CAPSULE PO PRN ×2 (13:37→17:23)
[2023-07-04 13:59] LABS: CLARITY URINE CLOUDY (CLEAR); COLOR URINE YELLOW (YELLOW); GLUCOSE URINE NEGATIVE (NEGATIVE); KETONES URINE NEGATIVE (NEGATIVE); LEUKOCYTE ESTERASE URINE NEGATIVE (NEGATIVE); NITRITE URINE NEGATIVE (NEGATIVE); OCCULT BLOOD URINE NEGATIVE (NEGATIVE); PH URINE 5.5 (4.5-8.0); PROTEIN URINE 1+ (NEGATIVE); UROBILINOGEN URINE 0.2 E.U./dL (0.2-1.0)
[2023-07-04 14:27] LABS: BACTERIA URINE NONE SEEN; COARSE GRANULAR CASTS URINE 0-5 /lpf; RBC URINE 0-2 /hpf (0-2); SQUAMOUS EPITHELIAL CELL URINE 1+ /lpf (RARE/1+); WBC URINE 0-2 /hpf (0-2); YEAST URINE NONE SEEN
[2023-07-04] MEDS ORDERED: GUAIFENESIN/CODEINE 200-20MG/10ML UDC PO NR (14:45)
[2023-07-04] MEDS ORDERED: BENZONATATE 200MG CAPSULE PO NR (15:30)
[2023-07-05] VITALS (11 sets, daily range): BP systolic 98–131; BP diastolic 64–82; PULSE 77–103; RESP 13–23; TEMP 97.7–98.6
[2023-07-05 06:03] LABS: BASOPHILS % 0.5 % (0.0-2.0); EOSINOPHILS % 4.2 % (0.0-5.0); HEMATOCRIT. 30.9 % (42.0-52.0); HEMOGLOBIN. 10.2 g/dL (14.0-18.0); LYMPHOCYTES % 17.1 % (20.0-50.0); MEAN CORPUSCULAR HEMOGLOBIN 28.3 pg (28.0-32.0); MEAN CORPUSCULAR HGB CONC 32.8 g/dL (31.0-37.0); MEAN CORPUSCULAR VOLUME 86.2 fL (80.0-94.0); MEAN PLATELET VOLUME 9.3 fl (7.4-10.4); MONOCYTES % 13.4 % (2.0-8.0); NEUTROPHILS % 64.8 % (40.0-76.0); PLATELET 138 x1000/uL (130-400); RED BLOOD CELL COUNT 3.59 mill/uL (4.7-6.1)
[2023-07-05 06:46] LABS: CARBON DIOXIDE 27 mEq/L (21-32); CHLORIDE 102 mEq/L (98-107); CREATININE 3.4 mg/dL (0.6-1.3); GLUCOSE 81 mg/dL (70-105); PHOSPHORUS 2.6 mg/dL (2.5-4.9); POTASSIUM 3.5 mEq/L (3.5-5.1); SODIUM 136 mEq/L (136-145); UREA NITROGEN BLOOD 20 mg/dL (9-23)
[2023-07-05] MEDS: BLOOD SUGAR DIAGNOSTIC STRIP TEST SCH ×4 (07:30→21:37)
[2023-07-05] MEDS: INSULIN LISPRO 100 UNITS/ML SUBCUT SCH ×4 (08:00→21:00)
[2023-07-05] MEDS: BENZONATATE 200MG CAPSULE PO PRN ×3 (08:44→17:19)
[2023-07-05] MEDS: CARVEDILOL 6.25 MG TABLET PO SCH ×2 (08:45→21:36)
[2023-07-05] MEDS: GUAIFENESIN 600MG ER TABLET PO SCH ×2 (08:45→21:36)
[2023-07-05] MEDS: MIDODRINE HCL 5MG TABLET PO SCH ×3 (08:45→17:19)
[2023-07-05] MEDS: ENOXAPARIN 80MG/0.8ML SYR SUBCUT SCH ×2 (08:46→21:37)
[2023-07-05] MEDS ORDERED: FUROSEMIDE 40MG/4ML VIAL IVP NR (09:15)
[2023-07-05] MEDS ORDERED: ALBUTEROL (0.083%) 2.5MG/3ML NEB HHN PRN (09:15)
[2023-07-05] MEDS ORDERED: PREDNISONE 20MG TABLET PO NR (14:15)
[2023-07-06] VITALS (7 sets, daily range): BP systolic 100–138; BP diastolic 43–70; PULSE 86–97; RESP 17–22; TEMP 96.9–97.6
[2023-07-06] MEDS: INSULIN LISPRO 100 UNITS/ML SUBCUT SCH ×4 (06:41→21:00)
[2023-07-06] MEDS: BLOOD SUGAR DIAGNOSTIC STRIP TEST SCH ×4 (06:41→21:00)
[2023-07-06] MEDS: CARVEDILOL 6.25 MG TABLET PO SCH ×2 (09:23→22:08)
[2023-07-06] MEDS: GUAIFENESIN 600MG ER TABLET PO SCH ×2 (09:23→22:08)
[2023-07-06] MEDS: MIDODRINE HCL 5MG TABLET PO SCH ×3 (09:23→17:41)
[2023-07-06] MEDS: ENOXAPARIN 80MG/0.8ML SYR SUBCUT SCH ×2 (09:24→22:07)
[2023-07-06 09:36] LABS: BASOPHILS % 0.4 % (0.0-2.0); EOSINOPHILS % 0.1 % (0.0-5.0); HEMATOCRIT. 35.7 % (42.0-52.0); HEMOGLOBIN. 11.4 g/dL (14.0-18.0); LYMPHOCYTES % 14.1 % (20.0-50.0); MEAN CORPUSCULAR HEMOGLOBIN 27.8 pg (28.0-32.0); MEAN CORPUSCULAR HGB CONC 31.9 g/dL (31.0-37.0); MEAN CORPUSCULAR VOLUME 86.9 fL (80.0-94.0); MEAN PLATELET VOLUME 9.2 fl (7.4-10.4); MONOCYTES % 5.1 % (2.0-8.0); NEUTROPHILS % 80.3 % (40.0-76.0); PLATELET 198 x1000/uL (130-400); RED BLOOD CELL COUNT 4.11 mill/uL (4.7-6.1); RED CELL DISTRIBUTION WIDTH 15.9 % (11.6-14.6); WHITE BLOOD COUNT 6.3 x1000/uL (4.5-11.0)
[2023-07-06 10:04] LABS: CALCIUM 9.6 mg/dL (8.7-10.4); CARBON DIOXIDE 26 mEq/L (21-32); CHLORIDE 103 mEq/L (98-107); CREATININE 3.1 mg/dL (0.6-1.3); GLUCOSE 109 mg/dL (70-105); PHOSPHORUS 2.3 mg/dL (2.5-4.9); POTASSIUM 3.9 mEq/L (3.5-5.1); SODIUM 136 mEq/L (136-145); UREA NITROGEN BLOOD 27 mg/dL (9-23)
[2023-07-06] MEDS: GUAIFENESIN-DM 200MG-20MG/10ML UDC PO PRN ×2 (12:52→17:23)
[2023-07-06] MEDS ORDERED: IPRATROPIUM/ALBUTEROL 0.5-3(2.5)MG/3ML NEB HHN NR (17:30)
[2023-07-06 18:17] LABS: BG BASE EXCESS 0.2 mmol/L (-2.0-2.0); BG CARBOXYHEMOGLOBIN 0.3 % (0.5-1.5); BG FRACTION INSPIRED OXYGEN 40; BG HCO3 ACT 25.2 mmol/L (22.0-26.0); BG METHEMOGLOBIN 0.2 % (0.0-1.5); BG OXYHEMOGLOBIN 96.5 % (94.0-97.0); BG PCO2 42.5 mmHg (35.0-45.0); BG PH 7.391 (7.350-7.450); BG PO2 96.3 mmHg (75.0-100.0); BG SAMPLE SITE RIGHT RADIAL; BG TOTAL HEMOGLOBIN 11.9 g/dL (12.0-18.0); BG VENT MODE MASK - VENTI
[2023-07-07] VITALS (10 sets, daily range): BP systolic 112–135; BP diastolic 56–79; PULSE 86–101; RESP 19–22; TEMP 96.9–98.8; O2SAT 97
[2023-07-07] MEDS: INSULIN LISPRO 100 UNITS/ML SUBCUT SCH ×4 (06:48→21:00)
[2023-07-07] MEDS: BLOOD SUGAR DIAGNOSTIC STRIP TEST SCH ×4 (06:48→21:02)
[2023-07-07 06:49] LABS: BASOPHILS % 0.4 % (0.0-2.0); EOSINOPHILS % 2.5 % (0.0-5.0); HEMATOCRIT. 33.7 % (42.0-52.0); HEMOGLOBIN. 10.8 g/dL (14.0-18.0); LYMPHOCYTES % 19.2 % (20.0-50.0); MEAN CORPUSCULAR VOLUME 87.6 fL (80.0-94.0); MEAN PLATELET VOLUME 9.2 fl (7.4-10.4); MONOCYTES % 11.1 % (2.0-8.0); NEUTROPHILS % 66.8 % (40.0-76.0); PLATELET 165 x1000/uL (130-400); RED BLOOD CELL COUNT 3.85 mill/uL (4.7-6.1); RED CELL DISTRIBUTION WIDTH 16.2 % (11.6-14.6); WHITE BLOOD COUNT 4.9 x1000/uL (4.5-11.0)
[2023-07-07 06:50] LABS: CALCIUM 9.2 mg/dL (8.7-10.4); CARBON DIOXIDE 26 mEq/L (21-32); CHLORIDE 105 mEq/L (98-107); GLUCOSE 83 mg/dL (70-105); PHOSPHORUS 3.5 mg/dL (2.5-4.9); POTASSIUM 3.8 mEq/L (3.5-5.1); SODIUM 138 mEq/L (136-145); UREA NITROGEN BLOOD 24 mg/dL (9-23)
[2023-07-07] MEDS: MIDODRINE HCL 5MG TABLET PO SCH ×3 (09:19→18:30)
[2023-07-07] MEDS: GUAIFENESIN 600MG ER TABLET PO SCH ×2 (09:19→21:02)
[2023-07-07] MEDS: ENOXAPARIN 80MG/0.8ML SYR SUBCUT SCH (09:20)
[2023-07-07] MEDS: CARVEDILOL 6.25 MG TABLET PO SCH ×2 (09:20→21:02)
[2023-07-07] MEDS: IPRATROPIUM/ALBUTEROL 0.5-3(2.5)MG/3ML NEB HHN SCH ×3 (09:40→16:30)
[2023-07-07] MEDS: FUROSEMIDE 40MG/4ML VIAL IVP SCH ×2 (13:23→18:30)
[2023-07-07] MEDS: GUAIFENESIN-DM 200MG-20MG/10ML UDC PO PRN (13:25)
[2023-07-08] VITALS (10 sets, daily range): BP systolic 95–132; BP diastolic 64–86; PULSE 87–111; RESP 18–22; TEMP 97.4–97.9; O2SAT 89–98
[2023-07-08] MEDS: IPRATROPIUM/ALBUTEROL 0.5-3(2.5)MG/3ML NEB HHN SCH ×5 (00:36→17:32)
[2023-07-08] MEDS: BLOOD SUGAR DIAGNOSTIC STRIP TEST SCH ×3 (06:24→16:40)
[2023-07-08] MEDS: FUROSEMIDE 40MG/4ML VIAL IVP SCH (06:24)
[2023-07-08] MEDS: INSULIN LISPRO 100 UNITS/ML SUBCUT SCH ×3 (06:24→17:10)
[2023-07-08 06:56] LABS: BASOPHILS % 0.5 % (0.0-2.0); EOSINOPHILS % 3.5 % (0.0-5.0); HEMATOCRIT. 33.1 % (42.0-52.0); HEMOGLOBIN. 10.9 g/dL (14.0-18.0); MEAN CORPUSCULAR HEMOGLOBIN 28.3 pg (28.0-32.0); MEAN CORPUSCULAR HGB CONC 32.9 g/dL (31.0-37.0); MEAN PLATELET VOLUME 9.2 fl (7.4-10.4); MONOCYTES % 14.1 % (2.0-8.0); NEUTROPHILS % 63.9 % (40.0-76.0); PLATELET 152 x1000/uL (130-400); RED BLOOD CELL COUNT 3.85 mill/uL (4.7-6.1); WHITE BLOOD COUNT 5.4 x1000/uL (4.5-11.0)
[2023-07-08 07:32] LABS: CALCIUM 9.4 mg/dL (8.7-10.4); CARBON DIOXIDE 25 mEq/L (21-32); CHLORIDE 102 mEq/L (98-107); CREATININE 2.9 mg/dL (0.6-1.3); GLUCOSE 82 mg/dL (70-105); POTASSIUM 3.6 mEq/L (3.5-5.1); SODIUM 138 mEq/L (136-145); UREA NITROGEN BLOOD 21 mg/dL (9-23)
[2023-07-08] MEDS: BENZONATATE 200MG CAPSULE PO PRN (08:59)
[2023-07-08] MEDS: MIDODRINE HCL 5MG TABLET PO SCH ×3 (09:00→17:33)
[2023-07-08] MEDS ORDERED: ENOXAPARIN 80MG/0.8ML SYR SUBCUT SCH (09:00)
[2023-07-08] MEDS: GUAIFENESIN 600MG ER TABLET PO SCH (09:00)
[2023-07-08] MEDS: CARVEDILOL 6.25 MG TABLET PO SCH (09:01)
[2023-07-08] MEDS ORDERED: METHYLPREDNISOLONE SOD SUCC 40MG/ML (ACT-O-VIAL) IV NR (13:15)
[2023-07-08] MEDS: GUAIFENESIN-DM 200MG-20MG/10ML UDC PO PRN (17:33)
[2023-07-09] MEDS ORDERED: FUROSEMIDE 40MG/4ML VIAL IVP SCH (09:00)
== END 2023-07-08 20:35 | disposition hospice, inpatient (51) | DRG 870 ==
LOC: ER 16:13 → MICUSO 06-12 19:13 → 5EST 06-21 14:20 → 7EST 07-05 19:28
PROVIDERS: ADMIT Internal Medicine; ATTEND Internal Medicine
PROC: 5A1955Z Respiratory Ventilation, Greater than 96 Consecutive Hours (ICD-10-PCS; principal; 2023-06-11)
PROC: 0BH17EZ Insertion of Endotracheal Airway into Trachea, Via Natural or Artificial Opening (ICD-10-PCS; 2023-06-11)
PROC: 06HY33Z Insertion of Infusion Device into Lower Vein, Percutaneous Approach (ICD-10-PCS; 2023-06-11)
PROC: B54BZZA Ultrasonography of Right Lower Extremity Veins, Guidance (ICD-10-PCS; 2023-06-11)
PROC: 02HV33Z Insertion of Infusion Device into Superior Vena Cava, Percutaneous Approach (ICD-10-PCS; 2023-06-14)
PROC: B548ZZA Ultrasonography of Superior Vena Cava, Guidance (ICD-10-PCS; 2023-06-14)
PROC: 4A00X4Z Measurement of Central Nervous Electrical Activity, External Approach (ICD-10-PCS; 2023-06-17)
PROC: 5A09357 Assistance with Respiratory Ventilation, Less than 24 Consecutive Hours, Continuous Positive Airway Pressure (ICD-10-PCS; 2023-06-19)
PROC: 5A09357 Assistance with Respiratory Ventilation, Less than 24 Consecutive Hours, Continuous Positive Airway Pressure (ICD-10-PCS; 2023-06-20)
PROC: 5A09357 Assistance with Respiratory Ventilation, Less than 24 Consecutive Hours, Continuous Positive Airway Pressure (ICD-10-PCS; 2023-06-22)
DX: A41.59 Other Gram-negative sepsis (principal); R65.21 Severe sepsis with septic shock; J96.01 Acute respiratory failure with hypoxia; N17.0 Acute kidney failure with tubular necrosis; I46.2 Cardiac arrest due to underlying cardiac condition; J96.02 Acute respiratory failure with hypercapnia; I42.0 Dilated cardiomyopathy; E87.29 Other acidosis; I13.0 Hypertensive heart and chronic kidney disease with heart failure and stage 1 through stage 4 chronic kidney disease, or unspecified chronic kidney disease; Z68.42 Body mass index [BMI] 45.0-49.9, adult; I47.29 Other ventricular tachycardia; N18.9 Chronic kidney disease, unspecified; E11.22 Type 2 diabetes mellitus with diabetic chronic kidney disease; Z20.822 Contact with and (suspected) exposure to COVID-19; B96.1 Klebsiella pneumoniae [K. pneumoniae] as the cause of diseases classified elsewhere; E66.01 Morbid (severe) obesity due to excess calories; Z51.5 Encounter for palliative care; J44.9 Chronic obstructive pulmonary disease, unspecified; I25.5 Ischemic cardiomyopathy; G47.33 Obstructive sleep apnea (adult) (pediatric); I48.0 Paroxysmal atrial fibrillation; I50.9 Heart failure, unspecified; D64.9 Anemia, unspecified; E03.9 Hypothyroidism, unspecified; E83.42 Hypomagnesemia; E87.6 Hypokalemia; E78.5 Hyperlipidemia, unspecified; M48.061 Spinal stenosis, lumbar region without neurogenic claudication; N20.0 Calculus of kidney; R04.0 Epistaxis; Z95.810 Presence of automatic (implantable) cardiac defibrillator; Z79.01 Long term (current) use of anticoagulants; Z86.718 Personal history of other venous thrombosis and embolism; Z87.442 Personal history of urinary calculi; Z79.899 Other long term (current) drug therapy; Z82.49 Family history of ischemic heart disease and other diseases of the circulatory system
CPT/HCPCS: 31500; 36415; 36573; 36600; 71045; 71250; 74176; 76770; 78580; 80048; 80053; 80061; 80202; 80305; 80320; 81003; 82150; 82375; 82533; 82550; 82553; 82805; 82962; 83036; 83605; 83735; 83880; 84100; 84132; 84145; 84439; 84443; 84478; 84484; 85025; 85027; 86850; 86900; 87070; 87076; 87077; 87186; 87426; 89055; 92610; 93005; 93306; 94002; 94003; 94640; 95816; 97110; 97116; 97162; 97166; 97530; 99291; A6261; C1725; C1893; C9113; J0692; J1650; J1940; J1953; J2250; J2370; J2543; J2704; J2920; J3010; J3370; J3475; J3480; J3490; J7030; J7050; J7060; J7512; G0480

== ENCOUNTER 2023-10-12 03:19 | Emergency (ER) | payer OTHER, MEDICAID ==
[~2023-10-12] VITALS: Ht 175.3 cm; Wt 127.0 kg
[~2023-10-12 03:19] MED LIST changes: -CHOL500051 PO; -FURO80TA3 PO; +METO-539 MT; +RIVA20TA MT; -SACU1TAB7 PO
[2023-10-12 03:29] VITALS: BP 101/59; PULSE 96; RESP 16; TEMP 98; O2SAT 97
[2023-10-12 03:51] LABS: BASOPHILS % 0.4 % (0.0-2.0); EOSINOPHILS % 5.5 % (0.0-5.0); HEMATOCRIT. 40.3 % (42.0-52.0); HEMOGLOBIN. 12.9 g/dL (14.0-18.0); LYMPHOCYTES % 12.9 % (20.0-50.0); MEAN CORPUSCULAR HEMOGLOBIN 27.5 pg (28.0-32.0); MEAN CORPUSCULAR VOLUME 85.8 fL (80.0-94.0); MEAN PLATELET VOLUME 9.2 fl (7.4-10.4); MONOCYTES % 7.7 % (2.0-8.0); NEUTROPHILS % 73.5 % (40.0-76.0); PLATELET 172 x1000/uL (130-400); RED CELL DISTRIBUTION WIDTH 15.4 % (11.6-14.6); WHITE BLOOD COUNT 6.9 x1000/uL (4.5-11.0)
[2023-10-12 04:07] LABS: CARBON DIOXIDE 23 mEq/L (21-32); CHLORIDE 108 mEq/L (98-107); POTASSIUM 4.2 mEq/L (3.5-5.1); SODIUM 136 mEq/L (136-145)
[2023-10-12 04:08] LABS: CALCIUM 9.6 mg/dL (8.7-10.4)
[2023-10-12 04:12] LABS: GLUCOSE 93 mg/dL (70-105)
[2023-10-12 04:13] LABS: TROPONIN I HIGH SENSITIVITY 13 ng/L (3.0-53); UREA NITROGEN BLOOD 20 mg/dL (9-23)
[2023-10-12 04:14] LABS: ALANINE AMINOTRANSFERASE 40 IU/L (10-49); ALBUMIN 4.2 g/dL (3.2-4.8); ASPARTATE AMINOTRANSFERASE 32 IU/L (<34)
[2023-10-12 04:15] LABS: BILIRUBIN DIRECT 0.4 mg/dL (<=3.0); BILIRUBIN TOTAL 0.8 mg/dL (0.1-1.0)
[2023-10-12 04:25] LABS: CREATININE 1.4 mg/dL (0.6-1.3)
[2023-10-12 04:54] LABS: CLARITY URINE CLEAR (CLEAR); COLOR URINE YELLOW (YELLOW); GLUCOSE URINE 3+ (NEGATIVE); KETONES URINE NEGATIVE (NEGATIVE); LEUKOCYTE ESTERASE URINE NEGATIVE (NEGATIVE); NITRITE URINE NEGATIVE (NEGATIVE); OCCULT BLOOD URINE NEGATIVE (NEGATIVE); PH URINE 5.5 (4.5-8.0); PROTEIN URINE 1+ (NEGATIVE); SPECIFIC GRAVITY URINE 1.026 (1.005-1.030)
[2023-10-12 06:03] LABS: BACTERIA URINE 1+; RBC URINE 0-2 /hpf (0-2); SQUAMOUS EPITHELIAL CELL URINE 1+ /lpf (RARE/1+)
[2023-10-12] MEDS: ONDANSETRON 4MG ODT PO ONE (09:01)
[2023-10-12] MEDS: FAMOTIDINE 20MG TABLET PO ONE (09:02)
[2023-10-12] MEDS ORDERED: FAMO-135 MT (10:11)
== END 2023-10-12 10:24 | disposition home or self-care (01) ==
LOC: ER 03:19
DX: R10.13 Epigastric pain (principal); J45.909 Unspecified asthma, uncomplicated; I11.0 Hypertensive heart disease with heart failure; I50.9 Heart failure, unspecified; E11.9 Type 2 diabetes mellitus without complications; Z79.899 Other long term (current) drug therapy
CPT/HCPCS: 99284; 74176; 80076; 80048; 81003; 85025; 84484; 36415; 93005; Q0162